=== PATIENT | female | born 1955 | race Caucasian/White ===

== ENCOUNTER 2018-12-13 09:28 | Inpatient (IN) | payer MEDICAID ==
[~2018-12-13] VITALS: Ht 167.6 cm; Wt 45.0 kg
[~2018-12-13 09:28] MED LIST: ACET-2615 PO; APIX5TAB3 PO; BENZ1TAB7 PO; BISA-155 PO; BISA10SU60 RC; CEFD300C3 PO; CLON-527 PO; DESM0.1T24 PO; DESM0.2T29 PO; DOCU-329 PO; FURO40TA4 PO; GABA300C PO; LACT1CAP26 PO; LAMO25TA94 PO; LITH150C8 PO; LORA1TAB PO; MAG355OR18 PO; MAGN400O6 PO; METO25TA6 PO; MIRT7.5T11 PO; MULT-38 PO; NA P133E4 RC; NITR0.4T51 SL; OLAN5TAB26 PO; OLAN5TAB3 PO; OMEP20TA23 PO; POLY17PO10 PO; POTA8TAB3 PO; QUET-1 PO; RISP2TAB97 PO; TRAZ-251 PO
[2018-12-13] MEDS ORDERED: ondansetron/PF 4mg/2ml inj IV ONE (09:40)
[2018-12-13] MEDS ORDERED: albuterol 2.5 mg/0.5ml nebule NEB ONE (09:40)
[2018-12-13] MEDS ORDERED: albuterol 2.5 MG/3 ML nebule NEB ONE (09:45)
[2018-12-13 09:50] LABS: BASOPHILS % (AUTO) 0.1 % (0-1); EOSINOPHILS # (AUTO) 0.2 X10'3 (0-0.9); EOSINOPHILS % (AUTO) 1.7 % (0-6); HEMATOCRIT 33.7 % (35.0-45.0); HEMOGLOBIN 11.3 g/dl (12.0-16.0); LYMPHOCYTES # (AUTO) 0.5 X10'3 (1.1-4.8); LYMPHOCYTES % (AUTO) 3.6 % (21-51); MEAN CORPUSCULAR HEMOGLOBIN 32.7 PG (27.0-31.0); MEAN CORPUSCULAR HGB CONC 33.5 g/dL (33.0-36.5); MEAN CORPUSCULAR VOLUME 97.6 FL (78-98); MEAN PLATELET VOLUME 7.6 FL (7.4-10.4); MONOCYTES # (AUTO) 0.5 X10'3 (0-0.9); MONOCYTES % (AUTO) 3.6 % (2-12); NEUTROPHILS # (AUTO) 12.9 X10'3 (1.8-7.7); PLATELET COUNT 241 X10'3 (140-440); RED BLOOD COUNT 3.46 X10'6 (4.20-5.60); RED CELL DISTRIBUTION WIDTH 13.4 % (11.5-14.5); WHITE BLOOD COUNT 14.2 X10'3 (4.5-11.0)
[2018-12-13 10:00] LABS: ABG BASE EXCESS 4.1 mmol/L (-2.0-3.0); ABG HCO3 30.8 mmol/L (22.0-26.0); ABG OXYGEN SATURATION 99.3 % (95-98); ABG PCO2 (T) 56.7 mmHg (32.0-45.0); ABG PH (T) 7.353 (7.350-7.450); ABG PO2 (T) 328.3 mmHg (83-108); ALLEN'S TEST Positive; FCOHb 1.8 % (0.5-1.5); FMetHb 0.3 % (0.3-1.12); FO2Hb 97.2 % (94-100); MINUTE VOLUME 20 L/min; RESPIRATORY RATE 20 b/min; RESPIRATORY RATE (OBSERVED) 52 b/min; TIDAL VOLUME 597 mL; TOTAL HEMOGLOBIN 11.7 G/dl (12.0-16.0)
[2018-12-13 10:05] LABS: ALANINE AMINOTRANSFERASE 30 U/L (12-78); ALBUMIN 3.4 G/DL (3.4-5.0); ALKALINE PHOSPHATASE 90 IU/L (46-116); ANION GAP 6 (8-16); ASPARTATE AMINO TRANSFERASE 30 U/L (10-37); BILIRUBIN,TOTAL 0.5 MG/DL (0.1-1.0); BLOOD UREA NITROGEN 18 MG/DL (7-18); BUN/CREATININE RATIO 11.7 (6.6-38.0); CHLORIDE 98 MMOL/L (99-107); CREATININE 1.54 MG/DL (0.40-0.90); GLUCOSE 157 MG/DL (70-104); POTASSIUM 3.8 MMOL/L (3.5-5.1); SODIUM 136 MMOL/L (135-145); TOTAL CARBON DIOXIDE 31.6 MMOL/L (24-32); TOTAL PROTEIN 6.9 G/DL (6.4-8.2); eGFR 34 ML/MIN
[2018-12-13] MEDS ORDERED: LORazepam 2 mg/ml vial IV ONE ×2 (10:10→10:50)
--- NOTE | 2018-12-13 10:10 | NUR ---
Spoke with Dr. Odom regarding patient repeatedly wanting to pull at lines and BiPAP mask to remove it. Dr. Odom gave verbal order for 0.5 mg IV ativan x1 dose now.
[2018-12-13 10:13] LABS: MAGNESIUM 1.6 MG/DL (1.5-2.4); PHOSPHORUS 4.1 MG/DL (2.3-4.5)
[2018-12-13] MEDS ORDERED: normal saline 1000ML IV soln IVB ONE ×2 (10:15→12:55)
--- NOTE | 2018-12-13 10:25 | NUR ---
SPOKE WITH DR RAYGOZA REGARDING PT'S BNP AND IV FLUID ORDER. PER MD, GIVE HALF THE BOLUS AND RE-ASSESS PRIOR TO ADMINISTERING SECOND HALF
[2018-12-13 11:06] LABS: ABG HCO3 30.2 mmol/L (22.0-26.0); ABG OXYGEN SATURATION 98.3 % (95-98); ABG PCO2 (T) 60.2 mmHg (32.0-45.0); ABG PH (T) 7.318 (7.350-7.450); ABG PO2 (T) 131.4 mmHg (83-108); ALLEN'S TEST Positive; FCOHb 1.1 % (0.5-1.5); FMetHb 0.3 % (0.3-1.12); FO2Hb 96.9 % (94-100); MINUTE VOLUME 19 L/min; RESPIRATORY RATE 20 b/min; RESPIRATORY RATE (OBSERVED) 31 b/min; TIDAL VOLUME 356 mL; TOTAL HEMOGLOBIN 10.3 G/dl (12.0-16.0)
--- NOTE | 2018-12-13 11:09 | NUR ---
Per MD request, pt trialed off BiPAP and placed Venturi Mask at 50% FiO2
--- NOTE | 2018-12-13 11:31 | NUR ---
Pt requested water, Dr Odom agreed to a couple of ice chips. Pt tolerated well.
[2018-12-13] MEDS ORDERED: BUDE10.2 INH (12:07)
[2018-12-13] MEDS ORDERED: XAL0.005OS OP (12:31)
[2018-12-13] MEDS ORDERED: ESCI5TAB PO (12:31)
--- NOTE | 2018-12-13 12:40 | NUR ---
Discussed recent vitals with EDMD, including BP; verbal for 500mL IV bolus received.
--- NOTE | 2018-12-13 12:51 | NUR ---
Pt incontinent of urine. Linens changed and pt repositioned
--- NOTE | 2018-12-13 12:55 | NUR ---
Venturi decreased to 35% FiO2. O2 94% at this time.
[2018-12-13] MEDS ORDERED: mag hydrox/Alum hydrox/simeth 30ml oral suspension PO PRN (13:20)
[2018-12-13] MEDS ORDERED: acetaminophen 325mg tablet PO PRN (13:20)
[2018-12-13] MEDS ORDERED: magnesium hydroxide 30ml (MOM) UD suspension PO PRN (13:20)
[2018-12-13] MEDS: normal saline 1000ml 1,000 ML IV SCH ×2 (13:42→22:46)
--- NOTE | 2018-12-13 13:49 | NUR ---
received report from MAMTA Poe in ER
[2018-12-13] MEDS: ipratropium/albuterol 3ml nebule NEB SCH ×3 (14:57→23:16)
[2018-12-13 15:00] VITALS: BP 125/74
[2018-12-13] MEDS: cefepime 1GM/NS ADD-VANTAGE 100 ML IV SCH ×2 (16:12→23:43)
[2018-12-13] MEDS ORDERED: nitroGLYCERIN 0.4mg SUBLingual tab SL PRN (16:20)
--- NOTE | 2018-12-13 16:34 | NUR ---
pt unable to answer many questions for NILDA, psych pt that lives at [place]
[2018-12-13] MEDS: polyethylene glycol 3350 17gm powd pack PO SCH (16:59)
[2018-12-13 17:50] LABS: CLARITY,URINE CLEAR (Clear); COLOR,URINE YELLOW (Yellow); GLUCOSE, URINE NEGATIVE (Neg); KETONES,URINE NEGATIVE (Neg); LEUKOCYTE ESTERASE ,URINE NEGATIVE (Neg); NITRITES, URINE NEGATIVE (Neg); OCCULT BLOOD,URINE TRACE-INTACT (Neg); PH,URINE 6.5 (4.8-8.0); PROTEIN,URINE NEGATIVE (Neg); UROBILINOGEN,URINE 0.2 E.U/dL (0.2-1.0)
[2018-12-13 17:55] LABS: UA COLLECTION TYPE VOIDED
[2018-12-13 17:56] LABS: BACTERIA,URINE FEW /HPF (Neg); MUCUS STRANDS NONE SEEN /LPF (Neg); RBC,URINE 0-2 /HPF (0-2); SQUAMOUS EPITHELIAL CELL,UR FEW /LPF (FEW); WBC,URINE NONE SEEN /HPF (0-4)
[2018-12-13 18:00] VITALS: BP 112/61
--- NOTE | 2018-12-13 18:00 | NUR ---
called [facility] and asked them to bring home med desmopressin. Catherine said she will try to bring it here
--- NOTE | 2018-12-13 18:25 | NUR ---
Orientee documentation: I have reviewed and agree with all interventions, assessments performed and documented by MAMTA Hair .
--- NOTE | 2018-12-13 18:46 | NUR ---
Problems reprioritized. Patient report given, questions answered & plan of care reviewed with MAMTA Dixon.
[2018-12-13] MEDS: albuterol 2.5 MG/3 ML nebule NEB SCH (19:00)
[2018-12-13] MEDS: LORazepam 1 MG tablet PO PRN (19:02)
[2018-12-13] MEDS: acetaminophen 325mg tablet PO SCH (20:00)
[2018-12-13] MEDS ORDERED: non-formulary drug (Acetaminophen (Tylenol Extra Strength) 2 TAB) PO SCH (20:00)
[2018-12-13] MEDS: docusate sod 250mg capsule PO SCH (20:00)
[2018-12-13] MEDS ORDERED: non-formulary drug (Budesonide/Formoterol Fumarate (Symbicort 160-4.5 Mcg Inhaler) 1 PUFFS INH SCH (20:00)
[2018-12-13] MEDS: budesonide 0.5mg/2ml UD nebule IH SCH (20:09)
[2018-12-13] MEDS ORDERED: DESMOPRESSIN ACETATE 0.4 MG PO SCH (21:00)
[2018-12-13] MEDS ORDERED: non-formulary drug (Mirtazapine 1 TAB) PO SCH (21:00)
[2018-12-13 22:00] VITALS: BP 126/85
[2018-12-13] MEDS ORDERED: haloperidol lactate 5mg/ml inj IM ONE (22:15)
[2018-12-13] MEDS: mirtazapine 15mg tablet PO SCH (23:15)
[2018-12-13] MEDS: metoprolol tartrate 25mg tablet PO SCH (23:16)
[2018-12-13] MEDS: traZODone 50mg tablet PO SCH (23:18)
[2018-12-13] MEDS: quetiapine 100mg tablet PO SCH (23:20)
[2018-12-13] MEDS: benztropine 1mg tablet PO SCH (23:24)
[2018-12-13] MEDS: lithium carbonate 150mg capsule PO SCH (23:27)
[2018-12-13] MEDS: lamoTRIgine 25mg tablet PO SCH (23:29)
[2018-12-13] MEDS: gabapentin 300mg capsule PO SCH (23:32)
[2018-12-13] MEDS: DESMOPRESSIN 0.2 MG PO SCH (23:33)
[2018-12-14 02:00] VITALS: BP 109/52
[2018-12-14] MEDS: ipratropium/albuterol 3ml nebule NEB SCH ×6 (03:00→22:29)
--- NOTE | 2018-12-14 06:49 | NUR ---
Patient in room PCU 3017m. I have received report from Destiny RN at the bedside and had the opportunity to ask questions and assume patient care. Patient is awake and alert in bed, appears to be in no distress, denies complaints. Vitals on bedside mobile are stable. Sitter is at the bedside. Will continue to monitor at this time.
--- NOTE | 2018-12-14 06:49 | NUR ---
Patient in room PCU 3017. I have received report from MAMTA Dixon and had the opportunity to ask questions and assume patient care.Patient is currently resting in bed, bed locked and low, call light in reach. no acute distress, no needs at this time.
[2018-12-14 07:00] VITALS: BP 102/49
[2018-12-14] MEDS: albuterol 2.5 MG/3 ML nebule NEB SCH ×4 (07:00→19:00)
[2018-12-14] MEDS: cefepime 1GM/NS ADD-VANTAGE 100 ML IV SCH ×2 (07:43→16:15)
[2018-12-14] MEDS: normal saline 1000ml 1,000 ML IV SCH ×2 (07:43→19:16)
[2018-12-14] MEDS: DESMOPRESSIN ACETATE 0.1 MG PO SCH (07:50)
[2018-12-14] MEDS: gabapentin 300mg capsule PO SCH ×2 (07:50→12:26)
[2018-12-14] MEDS: OLANZAPINE 5 MG TABLET PO SCH (07:51)
[2018-12-14] MEDS: benztropine 1mg tablet PO SCH ×2 (07:52→19:38)
[2018-12-14] MEDS: lamoTRIgine 25mg tablet PO SCH ×2 (07:54→19:38)
[2018-12-14] MEDS: CITALOpram 10mg tablet PO SCH (07:54)
[2018-12-14] MEDS: metoprolol tartrate 25mg tablet PO SCH ×2 (07:56→19:39)
[2018-12-14] MEDS: pantoprazole 40mg Tablet.DR PO SCH (07:56)
[2018-12-14] MEDS: docusate sod 250mg capsule PO SCH ×2 (07:56→19:38)
[2018-12-14] MEDS: acetaminophen 325mg tablet PO SCH ×2 (07:58→19:50)
[2018-12-14] MEDS: potassium chloride 8mEq ER tablet PO SCH (07:58)
[2018-12-14] MEDS: multivitamins, therapeutics tablet PO SCH (07:58)
[2018-12-14] MEDS ORDERED: DESMOPRESSIN ACETATE PO SCH (08:00)
[2018-12-14] MEDS ORDERED: non-formulary drug (Omeprazole Magnesium (Prilosec Otc) 1 TAB) PO SCH (08:00)
[2018-12-14] MEDS ORDERED: non-formulary drug (Multivitamin (Daily Multiple Vitamin) 1 TAB) PO SCH (08:00)
[2018-12-14] MEDS: furosemide 40mg tablet PO SCH (08:00)
[2018-12-14] MEDS ORDERED: ESCITALOPRAM OXALATE PO SCH (08:00)
[2018-12-14] MEDS: lithium carbonate 150mg capsule PO SCH ×2 (08:05→19:38)
[2018-12-14] MEDS: budesonide 0.5mg/2ml UD nebule IH SCH ×2 (08:12→19:11)
--- NOTE | 2018-12-14 08:20 | NUR ---
Assessment completed on patient, patient is aware of current facility, stated that the year was 2018, and the the president is "Juanito". Patient declines all lab draws but was compliant with medication administration. Patient moved to room 3028B, belongings in [place]. Sitter continues to be at the bedside. Will continue to monitor at this time.
--- NOTE | 2018-12-14 08:54 | NUR ---
Dr. Zabala at bedside. Orders received for PT eval, oxygen decrease to 2L & soy milk.
--- NOTE | 2018-12-14 09:49 | NUR ---
Spoke with Dr Zabala who is aware that patient is refusing lab draws this am
--- NOTE | 2018-12-14 11:07 | NUR ---
PAGER ID: [phone] MESSAGE: Janice OLEARY Ext [phone] Torito has Tylenol ordered for fever and scheduled BID, but nothing for pain, may we order Tylenol PRN for pain? Thank you.
[2018-12-14] MEDS: LORazepam 1 MG tablet PO PRN ×2 (11:09→17:46)
[2018-12-14 11:37] VITALS: BP 100/64
--- NOTE | 2018-12-14 11:50 | NUR ---
Leandro trigger: Leandro 12; no edema and skin intact. Addendum: 12/14/18 at [address] Amended: Links added.
[2018-12-14 15:59] VITALS: BP 133/57
--- NOTE | 2018-12-14 16:34 | NUR ---
PAGER ID: [phone] MESSAGE: Janice OLEARY Ext [phone] SAI Ugarte had 4 beat fun of V-Tach. Thank you
[2018-12-14 18:00] VITALS: BP 115/52
--- NOTE | 2018-12-14 18:20 | NUR ---
Problems reprioritized. Patient report given, questions answered & plan of care reviewed with Lexi OLEARY. Patient stable at transfer if care.
--- NOTE | 2018-12-14 18:26 | NUR ---
Patient in room PCU 3028. I have received report from Lamont OLEARY and had the opportunity to ask questions and assume patient care.
--- NOTE | 2018-12-14 18:27 | NUR ---
Charting completed by Rossi OLEARY has been reviewed. Constructive criticism given as needed.
[2018-12-14] MEDS: gabapentin 400mg capsule PO SCH (19:39)
[2018-12-14] MEDS: lactobacillus rhamnosus 10,000 MMU CELLS/CAPSULE PO SCH (19:39)
[2018-12-14] MEDS: DESMOPRESSIN 0.2 MG PO SCH (20:22)
[2018-12-14] MEDS: traZODone 50mg tablet PO SCH (20:22)
[2018-12-14] MEDS: quetiapine 100mg tablet PO SCH (20:23)
[2018-12-14] MEDS: mirtazapine 15mg tablet PO SCH (20:24)
[2018-12-14 23:00] VITALS: BP_SYST 116; BP_SYST 16; BP_DIAS 46
[2018-12-15] VITALS (7 sets, daily range): BP systolic 95–145; BP diastolic 43–60
[2018-12-15] MEDS: cefepime 1GM/NS ADD-VANTAGE 100 ML IV SCH ×4 (01:32→23:56)
[2018-12-15] MEDS: ipratropium/albuterol 3ml nebule NEB SCH ×5 (03:00→19:35)
[2018-12-15] MEDS: LORazepam 1 MG tablet PO PRN ×3 (04:48→17:10)
[2018-12-15] MEDS: normal saline 1000ml 1,000 ML IV SCH ×2 (05:16→15:22)
[2018-12-15 05:17] LABS: BASOPHILS % (AUTO) 0.3 % (0-1); EOSINOPHILS # (AUTO) 0.3 X10'3 (0-0.9); EOSINOPHILS % (AUTO) 3.4 % (0-6); HEMATOCRIT 29.5 % (35.0-45.0); HEMOGLOBIN 9.9 g/dl (12.0-16.0); LYMPHOCYTES # (AUTO) 0.9 X10'3 (1.1-4.8); LYMPHOCYTES % (AUTO) 11.1 % (21-51); MEAN CORPUSCULAR HEMOGLOBIN 33.7 PG (27.0-31.0); MEAN CORPUSCULAR HGB CONC 33.4 g/dL (33.0-36.5); MEAN CORPUSCULAR VOLUME 100.8 FL (78-98); MEAN PLATELET VOLUME 7.7 FL (7.4-10.4); MONOCYTES # (AUTO) 0.5 X10'3 (0-0.9); MONOCYTES % (AUTO) 6.4 % (2-12); NEUTROPHILS # (AUTO) 6.5 X10'3 (1.8-7.7); NEUTROPHILS % (AUTO) 78.8 % (42-75); PLATELET COUNT 180 X10'3 (140-440); RED BLOOD COUNT 2.93 X10'6 (4.20-5.60); RED CELL DISTRIBUTION WIDTH 13.7 % (11.5-14.5); WHITE BLOOD COUNT 8.2 X10'3 (4.5-11.0)
[2018-12-15 05:36] LABS: ALBUMIN 2.8 G/DL (3.4-5.0); ANION GAP 5 (8-16); BLOOD UREA NITROGEN 11 MG/DL (7-18); BUN/CREATININE RATIO 8.9 (6.6-38.0); CALCIUM 9.4 MG/DL (8.5-10.1); CHLORIDE 110 MMOL/L (99-107); CREATININE 1.23 MG/DL (0.40-0.90); GLUCOSE 79 MG/DL (70-104); POTASSIUM 4.1 MMOL/L (3.5-5.1); SODIUM 143 MMOL/L (135-145); TOTAL CARBON DIOXIDE 28.3 MMOL/L (24-32); eGFR 44 ML/MIN
--- NOTE | 2018-12-15 06:28 | NUR ---
Problems reprioritized. Patient report given, questions answered & plan of care reviewed with . Rossi OLEARY
[2018-12-15] MEDS: budesonide 0.5mg/2ml UD nebule IH SCH ×2 (07:03→19:35)
[2018-12-15] MEDS: albuterol 2.5 MG/3 ML nebule NEB SCH ×3 (07:03→19:35)
--- NOTE | 2018-12-15 07:21 | NUR ---
Patient in room PCU 3028. I have received report from MAMTA Roy and had the opportunity to ask questions and assume patient care. Patient is currently resting in bed, bed locked and low, call light in reach. No acute distress, no needs at this time.
[2018-12-15] MEDS: metoprolol tartrate 25mg tablet PO SCH ×2 (08:00→20:10)
[2018-12-15] MEDS: potassium chloride 8mEq ER tablet PO SCH (08:30)
[2018-12-15] MEDS: CITALOpram 10mg tablet PO SCH (08:31)
[2018-12-15] MEDS: benztropine 1mg tablet PO SCH ×2 (08:31→20:09)
[2018-12-15] MEDS: lamoTRIgine 25mg tablet PO SCH ×2 (08:32→20:09)
[2018-12-15] MEDS: multivitamins, therapeutics tablet PO SCH (08:32)
[2018-12-15] MEDS: OLANZAPINE 5 MG TABLET PO SCH (08:32)
[2018-12-15] MEDS: lactobacillus rhamnosus 10,000 MMU CELLS/CAPSULE PO SCH ×2 (08:32→20:09)
[2018-12-15] MEDS: lithium carbonate 150mg capsule PO SCH ×2 (08:32→20:10)
[2018-12-15] MEDS: pantoprazole 40mg Tablet.DR PO SCH (08:32)
[2018-12-15] MEDS: furosemide 40mg tablet PO SCH (08:32)
[2018-12-15] MEDS: DESMOPRESSIN ACETATE 0.1 MG PO SCH (08:33)
[2018-12-15] MEDS: docusate sod 250mg capsule PO SCH ×2 (08:33→20:10)
[2018-12-15] MEDS: gabapentin 400mg capsule PO SCH ×2 (08:33→20:09)
[2018-12-15] MEDS: acetaminophen 325mg tablet PO SCH ×2 (08:33→20:10)
--- NOTE | 2018-12-15 10:27 | NUR ---
Conservator Jerilyn called, Latrice answered and stated he was taking calls for her. okay to cut off rings and he will have sister call patient per patients request
--- NOTE | 2018-12-15 11:14 | NUR ---
Pt simons rings were tight on her fingers, two simons rings removed and placed in a labeled bag in top drawer next to patient
[2018-12-15] MEDS: polyethylene glycol 3350 17gm powd pack PO SCH (17:07)
--- NOTE | 2018-12-15 18:39 | NUR ---
Patient in room PCU 3028. I have received report from Regina RN and Rossi RN and had the opportunity to ask questions and assume patient care.
[2018-12-15] MEDS: mirtazapine 15mg tablet PO SCH (20:09)
[2018-12-15] MEDS: quetiapine 100mg tablet PO SCH (20:10)
[2018-12-15] MEDS: traZODone 50mg tablet PO SCH (20:10)
[2018-12-15] MEDS: DESMOPRESSIN 0.2 MG PO SCH (20:11)
[2018-12-16] MEDS: ipratropium/albuterol 3ml nebule NEB SCH ×3 (00:10→06:44)
[2018-12-16] MEDS: normal saline 1000ml 1,000 ML IV SCH ×3 (00:51→23:30)
[2018-12-16 02:00] VITALS: BP 97/50
[2018-12-16] MEDS: LORazepam 1 MG tablet PO PRN ×3 (05:47→19:32)
[2018-12-16 06:00] VITALS: BP 90/77
--- NOTE | 2018-12-16 06:03 | NUR ---
Problems reprioritized. Patient report given, questions answered & plan of care reviewed with MAMTA Tapia.
[2018-12-16] MEDS: budesonide 0.5mg/2ml UD nebule IH SCH ×2 (06:41→20:32)
[2018-12-16] MEDS: albuterol 2.5 MG/3 ML nebule NEB SCH ×4 (06:41→20:32)
[2018-12-16 06:49] LABS: BASOPHILS % (AUTO) 0.4 % (0-1); EOSINOPHILS # (AUTO) 0.3 X10'3 (0-0.9); EOSINOPHILS % (AUTO) 3.4 % (0-6); HEMATOCRIT 28.6 % (35.0-45.0); HEMOGLOBIN 9.7 g/dl (12.0-16.0); LYMPHOCYTES # (AUTO) 0.8 X10'3 (1.1-4.8); LYMPHOCYTES % (AUTO) 10.2 % (21-51); MEAN CORPUSCULAR HEMOGLOBIN 33.9 PG (27.0-31.0); MEAN CORPUSCULAR HGB CONC 33.9 g/dL (33.0-36.5); MEAN PLATELET VOLUME 7.9 FL (7.4-10.4); MONOCYTES # (AUTO) 0.5 X10'3 (0-0.9); MONOCYTES % (AUTO) 6.3 % (2-12); NEUTROPHILS # (AUTO) 6.3 X10'3 (1.8-7.7); NEUTROPHILS % (AUTO) 79.7 % (42-75); PLATELET COUNT 179 X10'3 (140-440); RED BLOOD COUNT 2.86 X10'6 (4.20-5.60); RED CELL DISTRIBUTION WIDTH 13.6 % (11.5-14.5); WHITE BLOOD COUNT 7.9 X10'3 (4.5-11.0)
[2018-12-16 07:05] LABS: ALBUMIN 2.8 G/DL (3.4-5.0); ANION GAP 6 (8-16); BLOOD UREA NITROGEN 13 MG/DL (7-18); BUN/CREATININE RATIO 10.2 (6.6-38.0); CALCIUM 9.4 MG/DL (8.5-10.1); CHLORIDE 107 MMOL/L (99-107); CREATININE 1.27 MG/DL (0.40-0.90); GLUCOSE 95 MG/DL (70-104); POTASSIUM 3.9 MMOL/L (3.5-5.1); SODIUM 142 MMOL/L (135-145); TOTAL CARBON DIOXIDE 29.1 MMOL/L (24-32); eGFR 43 ML/MIN
[2018-12-16] MEDS: OLANZAPINE 5 MG TABLET PO SCH (07:52)
[2018-12-16] MEDS: lactobacillus rhamnosus 10,000 MMU CELLS/CAPSULE PO SCH ×2 (07:52→21:04)
[2018-12-16] MEDS: cefepime 1GM/NS ADD-VANTAGE 100 ML IV SCH ×3 (07:52→23:29)
[2018-12-16] MEDS: benztropine 1mg tablet PO SCH ×2 (07:52→21:08)
[2018-12-16] MEDS: docusate sod 250mg capsule PO SCH ×2 (07:52→21:08)
[2018-12-16] MEDS: gabapentin 400mg capsule PO SCH ×2 (07:52→21:08)
[2018-12-16] MEDS: CITALOpram 10mg tablet PO SCH (07:53)
[2018-12-16] MEDS: lamoTRIgine 25mg tablet PO SCH ×2 (07:53→21:07)
[2018-12-16] MEDS: furosemide 40mg tablet PO SCH (07:53)
[2018-12-16] MEDS: potassium chloride 8mEq ER tablet PO SCH (07:53)
[2018-12-16] MEDS: multivitamins, therapeutics tablet PO SCH (07:53)
[2018-12-16] MEDS: pantoprazole 40mg Tablet.DR PO SCH (07:53)
[2018-12-16] MEDS: acetaminophen 325mg tablet PO SCH ×2 (07:54→21:07)
[2018-12-16] MEDS: metoprolol tartrate 25mg tablet PO SCH ×2 (08:00→21:08)
[2018-12-16] MEDS: lithium carbonate 150mg capsule PO SCH ×2 (08:03→21:07)
[2018-12-16 11:00] VITALS: BP 126/58
[2018-12-16] MEDS: DESMOPRESSIN ACETATE 0.1 MG PO SCH (11:51)
--- NOTE | 2018-12-16 14:00 | NUR ---
PAGER ID: [phone] MESSAGE: [facility] 3028B [phone]
--- NOTE | 2018-12-16 14:16 | NUR ---
O2 Sat at rest on room air: 76% If below 89%: Recovery O2 Sat at rest: 93% on 2LPM: via nasal cannula No further documentation is necessary.
[2018-12-16 15:00] VITALS: BP 112/48
[2018-12-16 18:00] VITALS: BP 130/54
--- NOTE | 2018-12-16 18:31 | NUR ---
Problems reprioritized. Patient report given, questions answered & plan of care reviewed with Ale Tanner RN, pt greeted at bedside.
--- NOTE | 2018-12-16 18:32 | NUR ---
Patient in room PCU 3028. I have received report from Regina and had the opportunity to ask questions and assume patient care.
[2018-12-16] MEDS: mirtazapine 15mg tablet PO SCH (21:04)
[2018-12-16] MEDS: traZODone 50mg tablet PO SCH (21:05)
[2018-12-16] MEDS: DESMOPRESSIN 0.2 MG PO SCH (21:08)
[2018-12-16] MEDS: quetiapine 100mg tablet PO SCH (21:08)
[2018-12-16 22:00] VITALS: BP 120/56
[2018-12-17] VITALS (11 sets, daily range): BP systolic 98–158; BP diastolic 48–95
--- NOTE | 2018-12-17 06:12 | NUR ---
Problems reprioritized. Patient report given, questions answered & plan of care reviewed with Vaughn.
--- NOTE | 2018-12-17 06:20 | NUR ---
Patient in room PCU 3028. I have received report from Joby Meade and had the opportunity to ask questions and assume patient care.
[2018-12-17] MEDS: normal saline 1000ml 1,000 ML IV SCH (07:16)
[2018-12-17] MEDS: budesonide 0.5mg/2ml UD nebule IH SCH ×2 (07:49→19:34)
[2018-12-17] MEDS: albuterol 2.5 MG/3 ML nebule NEB SCH ×4 (07:49→19:34)
[2018-12-17] MEDS: cefepime 1GM/NS ADD-VANTAGE 100 ML IV SCH ×3 (08:32→23:25)
[2018-12-17] MEDS: DESMOPRESSIN ACETATE 0.1 MG PO SCH (08:33)
[2018-12-17] MEDS: docusate sod 250mg capsule PO SCH ×2 (08:34→20:15)
[2018-12-17] MEDS: acetaminophen 325mg tablet PO SCH ×2 (08:34→20:14)
[2018-12-17] MEDS: lactobacillus rhamnosus 10,000 MMU CELLS/CAPSULE PO SCH ×2 (08:35→20:15)
[2018-12-17] MEDS: gabapentin 400mg capsule PO SCH ×2 (08:35→20:13)
[2018-12-17] MEDS: CITALOpram 10mg tablet PO SCH (08:35)
[2018-12-17] MEDS: potassium chloride 8mEq ER tablet PO SCH (08:35)
[2018-12-17] MEDS: OLANZAPINE 5 MG TABLET PO SCH (08:35)
[2018-12-17] MEDS: lamoTRIgine 25mg tablet PO SCH ×2 (08:35→20:14)
[2018-12-17] MEDS: multivitamins, therapeutics tablet PO SCH (08:35)
[2018-12-17] MEDS: pantoprazole 40mg Tablet.DR PO SCH (08:36)
[2018-12-17] MEDS: benztropine 1mg tablet PO SCH ×2 (08:36→20:13)
[2018-12-17] MEDS: lithium carbonate 150mg capsule PO SCH ×2 (08:36→20:15)
[2018-12-17] MEDS: furosemide 40mg tablet PO SCH (08:36)
[2018-12-17] MEDS: metoprolol tartrate 25mg tablet PO SCH ×2 (08:37→20:17)
[2018-12-17 09:14] LABS: BASOPHILS % (AUTO) 0.2 % (0-1); EOSINOPHILS # (AUTO) 0.2 X10'3 (0-0.9); EOSINOPHILS % (AUTO) 2.4 % (0-6); HEMATOCRIT 30.8 % (35.0-45.0); HEMOGLOBIN 10.4 g/dl (12.0-16.0); LYMPHOCYTES # (AUTO) 0.7 X10'3 (1.1-4.8); LYMPHOCYTES % (AUTO) 7.8 % (21-51); MEAN CORPUSCULAR HEMOGLOBIN 33.4 PG (27.0-31.0); MEAN CORPUSCULAR HGB CONC 33.7 g/dL (33.0-36.5); MEAN CORPUSCULAR VOLUME 99.2 FL (78-98); MEAN PLATELET VOLUME 7.9 FL (7.4-10.4); MONOCYTES # (AUTO) 0.6 X10'3 (0-0.9); MONOCYTES % (AUTO) 6.7 % (2-12); NEUTROPHILS # (AUTO) 7.3 X10'3 (1.8-7.7); NEUTROPHILS % (AUTO) 82.9 % (42-75); PLATELET COUNT 187 X10'3 (140-440); RED CELL DISTRIBUTION WIDTH 13.7 % (11.5-14.5); WHITE BLOOD COUNT 8.7 X10'3 (4.5-11.0)
[2018-12-17 09:26] LABS: ALBUMIN 2.9 G/DL (3.4-5.0); ANION GAP 4 (8-16); BLOOD UREA NITROGEN 16 MG/DL (7-18); BUN/CREATININE RATIO 12.6 (6.6-38.0); CALCIUM 10.1 MG/DL (8.5-10.1); CHLORIDE 108 MMOL/L (99-107); CREATININE 1.27 MG/DL (0.40-0.90); GLUCOSE 105 MG/DL (70-104); POTASSIUM 3.9 MMOL/L (3.5-5.1); SODIUM 141 MMOL/L (135-145); TOTAL CARBON DIOXIDE 28.8 MMOL/L (24-32); eGFR 43 ML/MIN
[2018-12-17] MEDS ORDERED: AMOX-422 PO (10:19)
--- NOTE | 2018-12-17 14:40 | NUR ---
PAGER ID: [phone] MESSAGE: RE: Isidro Ugarte. Room: 3028B. Pt was evaluated by [facility] and they declined to receive her back today, stating she needs to be able to transfer with PT and not be on continuous O2. -[facility] #[phone] Dr. Zabala paged concerning Pt not being DCd today.
--- NOTE | 2018-12-17 16:09 | NUR ---
PAGER ID: [phone] MESSAGE: Re: Isidro Ugarte. Room: [facility]. Pt asked about her Latanoprost (Xalatan) eye drops for her glaucoma. Eye drops have been completed in the med rec Dr. Zabala paged concerning Pts eye drops for her glaucoma
[2018-12-17] MEDS: polyethylene glycol 3350 17gm powd pack PO SCH (16:42)
--- NOTE | 2018-12-17 18:00 | NUR ---
Problems reprioritized. Patient report given, questions answered & plan of care reviewed with Joby Meade.
--- NOTE | 2018-12-17 18:34 | NUR ---
Patient in room PCU 3028. I have received report from Vaughn and had the opportunity to ask questions and assume patient care.
[2018-12-17] MEDS: DESMOPRESSIN 0.2 MG PO SCH (20:13)
[2018-12-17] MEDS: traZODone 50mg tablet PO SCH (20:14)
[2018-12-17] MEDS: quetiapine 100mg tablet PO SCH (20:15)
[2018-12-17] MEDS: mirtazapine 15mg tablet PO SCH (20:15)
[2018-12-18 04:36] VITALS: BP 107/52
[2018-12-18 06:00] VITALS: BP 114/68
--- NOTE | 2018-12-18 06:07 | NUR ---
Problems reprioritized. Patient report given, questions answered & plan of care reviewed with Mikey.
--- NOTE | 2018-12-18 06:10 | NUR ---
Patient in room PCU 3028. I have received report from Joby OLEARY and had the opportunity to ask questions and assume patient care.
[2018-12-18 06:27] LABS: BASOPHILS % (AUTO) 0.4 % (0-1); EOSINOPHILS # (AUTO) 0.3 X10'3 (0-0.9); EOSINOPHILS % (AUTO) 4.4 % (0-6); HEMATOCRIT 31.1 % (35.0-45.0); HEMOGLOBIN 10.5 g/dl (12.0-16.0); LYMPHOCYTES # (AUTO) 0.7 X10'3 (1.1-4.8); LYMPHOCYTES % (AUTO) 9.1 % (21-51); MEAN CORPUSCULAR HEMOGLOBIN 33.6 PG (27.0-31.0); MEAN CORPUSCULAR HGB CONC 33.8 g/dL (33.0-36.5); MEAN CORPUSCULAR VOLUME 99.4 FL (78-98); MEAN PLATELET VOLUME 8.6 FL (7.4-10.4); MONOCYTES # (AUTO) 0.7 X10'3 (0-0.9); MONOCYTES % (AUTO) 8.8 % (2-12); NEUTROPHILS # (AUTO) 6.1 X10'3 (1.8-7.7); NEUTROPHILS % (AUTO) 77.3 % (42-75); PLATELET COUNT 210 X10'3 (140-440); RED BLOOD COUNT 3.13 X10'6 (4.20-5.60); RED CELL DISTRIBUTION WIDTH 13.5 % (11.5-14.5); WHITE BLOOD COUNT 7.8 X10'3 (4.5-11.0)
[2018-12-18 06:38] LABS: ALBUMIN 2.9 G/DL (3.4-5.0); ANION GAP 2 (8-16); BLOOD UREA NITROGEN 18 MG/DL (7-18); BUN/CREATININE RATIO 14.4 (6.6-38.0); CALCIUM 10.1 MG/DL (8.5-10.1); CHLORIDE 100 MMOL/L (99-107); CREATININE 1.25 MG/DL (0.40-0.90); GLUCOSE 92 MG/DL (70-104); SODIUM 135 MMOL/L (135-145); TOTAL CARBON DIOXIDE 32.7 MMOL/L (24-32); eGFR 43 ML/MIN
[2018-12-18] MEDS: cefepime 1GM/NS ADD-VANTAGE 100 ML IV SCH (07:42)
[2018-12-18] MEDS: DESMOPRESSIN ACETATE 0.1 MG PO SCH (07:43)
[2018-12-18] MEDS: lithium carbonate 150mg capsule PO SCH ×2 (07:45→21:15)
[2018-12-18] MEDS: potassium chloride 8mEq ER tablet PO SCH (07:45)
[2018-12-18] MEDS: docusate sod 250mg capsule PO SCH ×2 (07:45→21:16)
[2018-12-18] MEDS: benztropine 1mg tablet PO SCH ×2 (07:45→21:17)
[2018-12-18] MEDS: metoprolol tartrate 25mg tablet PO SCH ×2 (07:46→21:18)
[2018-12-18] MEDS: acetaminophen 325mg tablet PO SCH ×2 (07:47→21:16)
[2018-12-18] MEDS: lactobacillus rhamnosus 10,000 MMU CELLS/CAPSULE PO SCH ×2 (07:47→21:16)
[2018-12-18] MEDS: lamoTRIgine 25mg tablet PO SCH ×2 (07:47→21:17)
[2018-12-18] MEDS: OLANZAPINE 5 MG TABLET PO SCH (07:47)
[2018-12-18] MEDS: furosemide 40mg tablet PO SCH (07:47)
[2018-12-18] MEDS: pantoprazole 40mg Tablet.DR PO SCH (07:48)
[2018-12-18] MEDS: CITALOpram 10mg tablet PO SCH (07:48)
[2018-12-18] MEDS: multivitamins, therapeutics tablet PO SCH (07:48)
[2018-12-18] MEDS: gabapentin 400mg capsule PO SCH ×2 (07:48→21:17)
[2018-12-18] MEDS: budesonide 0.5mg/2ml UD nebule IH SCH ×2 (08:19→19:52)
[2018-12-18] MEDS: albuterol 2.5 MG/3 ML nebule NEB SCH ×4 (08:19→19:52)
--- NOTE | 2018-12-18 10:54 | NUR ---
ADMIT DATE: 12/13/2018 Admitted for SOB, 63y/o female from [facility]. History of congestive heart failure, hypertension, COPD, history of pulmonary embolism, chronic kidney disease, osteoporosis, bipolar disorder. Pt softspoken and quiet upon visitation, seemed slightly confused. Examined pt pressure points for breakdown. Heels were in good condition but had some blanchable redness. Sacrum had a stage 2 pressure ulcer with surrounding maceration. Cleansed Wound with NS and gauze, applied barrier spray, Triad Hydrophyllic paste, then Optifoam covering. No other areas of concern noted. Pt had psoriasis plaques extensively. [facility] RECCOMENDATIONS: SACRAL WOUND: Cleanse area with NS, dry, apply barrier spray and allow to dry. Then apply Triad Hydrophyllic dressing in light layer over wound and melanie-wound, Cover with Optifoam. 1. Daily bathing with no rinse skin cleanser. 2. Cream/Lotion to be applied to skin after bathing. 3. Melanie care Q shift and prn soiling followed by with Barrier Cream. 4. Turn patient Q 1-2 hrs and reposition with pillows. 5. Float heels to offload pressure. Addendum: 12/18/18 at 1056 by Helga Davidson RN Amended: Links added.
[2018-12-18 11:00] VITALS: BP 152/66
--- NOTE | 2018-12-18 11:51 | NUR ---
Initial: Pt admit with acute resp fail with hypoxemia and possible aspiration. Pt recently admitted and given BSS on 12/11/18 with AUTOMOTIVE SALES MANAGER recs pureed food with thin liquids d/t difficulty chewing regular foods r/t no upper teeth. Pt currently on a lactose free pureed diet with documented average 25% PO intake not meeting nutrient needs. Pt with increased protein needs r/t stage II sacrum PU with surrounding maceration per WOC. Unable to provide protein smoothies/shakes with Myke d/t pt with lactose free diet. Recommend Ensure Enlive TID to provide additional protein and kcal with low PO intake of meals, MD and dietary notified. High protein education not appropriate at this time as pt is refusing teachings and confused per notes in teaching record. Pt admit on 12/13 with documented LBM 12/11, pt with routine Colace and Miralax with MoM PRN not yet given. Pt is waiting to be transferred back to [facility] per MD notes. Will continue to follow. Recommendations: 1) Continue lactose free pureed diet 2) Ensure Enlive TID 3) Routine bowel care; monitor need for additional 4) Wt per rx Addendum: 12/18/18 at [address] Amended: Links added.
[2018-12-18] MEDS ORDERED: levoFLOXACIN 500mg tablet PO ONE (12:30)
[2018-12-18] MEDS: ondansetron/PF 4mg/2ml inj IV PRN ×2 (14:57→21:31)
[2018-12-18 15:00] VITALS: BP 136/71
--- NOTE | 2018-12-18 15:00 | NUR ---
Pt has remained on room air since 1344 and has sated in low to mid 90s.
[2018-12-18 18:00] VITALS: BP 148/64
[2018-12-18] MEDS: lactose-reduced food (Ensure Enlive) - 237ml bottle PO SCH (18:00)
--- NOTE | 2018-12-18 18:25 | NUR ---
Problems reprioritized. Patient report given, questions answered & plan of care reviewed with Annita OLEARY.
--- NOTE | 2018-12-18 18:36 | NUR ---
Patient in room PCU 3028. I have received report from MAMTA Mendes and had the opportunity to ask questions and assume patient care.
[2018-12-18] MEDS: polyethylene glycol 3350 17gm powd pack PO SCH (21:13)
[2018-12-18] MEDS: quetiapine 100mg tablet PO SCH (21:15)
[2018-12-18] MEDS: traZODone 50mg tablet PO SCH (21:15)
[2018-12-18] MEDS: mirtazapine 15mg tablet PO SCH (21:18)
[2018-12-18] MEDS: DESMOPRESSIN 0.2 MG PO SCH (21:19)
[2018-12-18 22:00] VITALS: BP 143/66
[2018-12-19 02:00] VITALS: BP 108/64
[2018-12-19] MEDS ORDERED: bisacodyl 10mg suppository rectal RC PRN (05:30)
[2018-12-19 06:00] VITALS: BP 144/63
--- NOTE | 2018-12-19 06:08 | NUR ---
Problems reprioritized. Patient report given, questions answered & plan of care reviewed with MAMTA Mendes.
--- NOTE | 2018-12-19 06:25 | NUR ---
Patient in room PCU 3028. I have received report from Annita OLEARY and had the opportunity to ask questions and assume patient care.
[2018-12-19] MEDS: budesonide 0.5mg/2ml UD nebule IH SCH ×2 (07:36→20:00)
[2018-12-19] MEDS: albuterol 2.5 MG/3 ML nebule NEB SCH ×4 (07:36→20:00)
[2018-12-19] MEDS: acetaminophen 325mg tablet PO SCH ×2 (08:26→20:14)
[2018-12-19] MEDS: lamoTRIgine 25mg tablet PO SCH ×2 (08:26→20:15)
[2018-12-19] MEDS: docusate sod 250mg capsule PO SCH ×2 (08:26→20:15)
[2018-12-19] MEDS: benztropine 1mg tablet PO SCH ×2 (08:26→20:15)
[2018-12-19] MEDS: DESMOPRESSIN ACETATE 0.1 MG PO SCH (08:26)
[2018-12-19] MEDS: gabapentin 400mg capsule PO SCH ×2 (08:26→20:14)
[2018-12-19] MEDS: lactobacillus rhamnosus 10,000 MMU CELLS/CAPSULE PO SCH ×2 (08:26→20:15)
[2018-12-19] MEDS: OLANZAPINE 5 MG TABLET PO SCH (08:26)
[2018-12-19] MEDS: CITALOpram 10mg tablet PO SCH (08:27)
[2018-12-19] MEDS: lithium carbonate 150mg capsule PO SCH ×2 (08:27→20:14)
[2018-12-19] MEDS: multivitamins, therapeutics tablet PO SCH (08:27)
[2018-12-19] MEDS: pantoprazole 40mg Tablet.DR PO SCH (08:27)
[2018-12-19] MEDS: metoprolol tartrate 25mg tablet PO SCH ×2 (08:27→20:14)
[2018-12-19] MEDS: potassium chloride 8mEq ER tablet PO SCH (08:27)
[2018-12-19] MEDS: furosemide 40mg tablet PO SCH (08:27)
[2018-12-19] MEDS: lactose-reduced food (Ensure Enlive) - 237ml bottle PO SCH ×3 (08:31→18:45)
[2018-12-19 10:15] LABS: ANION GAP 5 (8-16); BASOPHILS % (AUTO) 0.2 % (0-1); BLOOD UREA NITROGEN 15 MG/DL (7-18); BUN/CREATININE RATIO 12.1 (6.6-38.0); CALCIUM 9.7 MG/DL (8.5-10.1); CHLORIDE 87 MMOL/L (99-107); CREATININE 1.24 MG/DL (0.40-0.90); EOSINOPHILS # (AUTO) 0.2 X10'3 (0-0.9); EOSINOPHILS % (AUTO) 2.6 % (0-6); GLUCOSE 121 MG/DL (70-104); HEMATOCRIT 32.2 % (35.0-45.0); HEMOGLOBIN 11.1 g/dl (12.0-16.0); LYMPHOCYTES # (AUTO) 0.6 X10'3 (1.1-4.8); LYMPHOCYTES % (AUTO) 6.4 % (21-51); MEAN CORPUSCULAR HEMOGLOBIN 33.6 PG (27.0-31.0); MEAN CORPUSCULAR HGB CONC 34.6 g/dL (33.0-36.5); MEAN CORPUSCULAR VOLUME 97.2 FL (78-98); MEAN PLATELET VOLUME 8.4 FL (7.4-10.4); MONOCYTES # (AUTO) 0.6 X10'3 (0-0.9); MONOCYTES % (AUTO) 7.2 % (2-12); NEUTROPHILS # (AUTO) 7.5 X10'3 (1.8-7.7); NEUTROPHILS % (AUTO) 83.6 % (42-75); PLATELET COUNT 239 X10'3 (140-440); POTASSIUM 3.8 MMOL/L (3.5-5.1); RED BLOOD COUNT 3.32 X10'6 (4.20-5.60); RED CELL DISTRIBUTION WIDTH 13.3 % (11.5-14.5); TOTAL CARBON DIOXIDE 31.5 MMOL/L (24-32); eGFR 44 ML/MIN
[2018-12-19 10:22] LABS: SODIUM 123 MMOL/L (135-145)
[2018-12-19 11:00] VITALS: BP 127/60
[2018-12-19] MEDS ORDERED: levoFLOXACIN 500mg tablet PO SCH (11:00)
--- NOTE | 2018-12-19 11:02 | NUR ---
PAGER ID: [phone] MESSAGE: RE: Isidro Ugarte, Room: [facility]. Pts Sodium:123. -[facility][1] #[id number] Dr. Zabala paged concerning Pts low sodium level
--- NOTE | 2018-12-19 13:18 | NUR ---
PAGER ID: [phone] MESSAGE: RE: Isidro Ugarte, room: [facility]. Pts sodium is 123 from 0930 BMP lab draw -[facility] #[phone] Dr. Zabala paged concerning Pts Sodium level. 123
[2018-12-19] MEDS ORDERED: normal saline 1000ml 1,000 ML IV SCH (13:50)
[2018-12-19 15:00] VITALS: BP 127/58
[2018-12-19 18:00] VITALS: BP 114/63
--- NOTE | 2018-12-19 18:33 | NUR ---
Problems reprioritized. Patient report given, questions answered & plan of care reviewed with Mikey OLEARY
--- NOTE | 2018-12-19 18:49 | NUR ---
Patient in room PCU 3028. I have received report from MAMTA Mendes and had the opportunity to ask questions and assume patient care.
[2018-12-19] MEDS: ondansetron/PF 4mg/2ml inj IV PRN (19:02)
[2018-12-19] MEDS: mirtazapine 15mg tablet PO SCH (20:13)
[2018-12-19] MEDS: DESMOPRESSIN 0.2 MG PO SCH (20:13)
[2018-12-19] MEDS: quetiapine 100mg tablet PO SCH (20:14)
[2018-12-19] MEDS: traZODone 50mg tablet PO SCH (20:14)
[2018-12-19 22:00] VITALS: BP 98/44
[2018-12-20] VITALS (7 sets, daily range): BP systolic 82–133; BP diastolic 35–65
--- NOTE | 2018-12-20 06:17 | NUR ---
Problems reprioritized. Patient report given, questions answered & plan of care reviewed with MAMTA Tapia.
--- NOTE | 2018-12-20 06:30 | NUR ---
Patient in room PCU 3028. I have received report from MAMTA Tapia and had the opportunity to ask questions and assume patient care.
--- NOTE | 2018-12-20 06:41 | NUR ---
Patient in room PCU 3028. I have received report from Mikey OLEARY and had the opportunity to ask questions and assume patient care. Gave report to Vic OLEARY due to assignment change. Patient stable at transfer of care.
[2018-12-20] MEDS: albuterol 2.5 MG/3 ML nebule NEB SCH ×4 (07:18→19:39)
[2018-12-20] MEDS: budesonide 0.5mg/2ml UD nebule IH SCH ×3 (07:18→19:39)
[2018-12-20] MEDS: lactose-reduced food (Ensure Enlive) - 237ml bottle PO SCH ×3 (08:00→17:39)
[2018-12-20] MEDS: CITALOpram 10mg tablet PO SCH (09:01)
[2018-12-20] MEDS: lamoTRIgine 25mg tablet PO SCH ×2 (09:01→21:22)
[2018-12-20] MEDS: pantoprazole 40mg Tablet.DR PO SCH (09:01)
[2018-12-20] MEDS: lactobacillus rhamnosus 10,000 MMU CELLS/CAPSULE PO SCH ×2 (09:01→20:00)
[2018-12-20] MEDS: benztropine 1mg tablet PO SCH ×2 (09:01→21:24)
[2018-12-20] MEDS: acetaminophen 325mg tablet PO SCH ×2 (09:03→20:00)
[2018-12-20] MEDS: docusate sod 250mg capsule PO SCH ×2 (09:03→20:00)
[2018-12-20] MEDS: multivitamins, therapeutics tablet PO SCH (09:05)
[2018-12-20] MEDS: gabapentin 400mg capsule PO SCH ×2 (09:05→20:00)
[2018-12-20] MEDS: furosemide 40mg tablet PO SCH (09:05)
[2018-12-20] MEDS: potassium chloride 8mEq ER tablet PO SCH (09:05)
[2018-12-20] MEDS: lithium carbonate 150mg capsule PO SCH ×2 (09:05→20:15)
[2018-12-20] MEDS: metoprolol tartrate 25mg tablet PO SCH ×2 (09:06→20:08)
[2018-12-20] MEDS: DESMOPRESSIN ACETATE 0.1 MG PO SCH (09:12)
[2018-12-20] MEDS: OLANZAPINE 5 MG TABLET PO SCH (09:13)
[2018-12-20] MEDS ORDERED: levoFLOXACIN 250mg tablet PO SCH (11:00)
[2018-12-20 11:49] LABS: ALBUMIN 3.2 G/DL (3.4-5.0); ANION GAP 1 (8-16); BLOOD UREA NITROGEN 21 MG/DL (7-18); BUN/CREATININE RATIO 14.7 (6.6-38.0); CALCIUM 10.3 MG/DL (8.5-10.1); CHLORIDE 86 MMOL/L (99-107); CREATININE 1.43 MG/DL (0.40-0.90); GLUCOSE 124 MG/DL (70-104); POTASSIUM 4.3 MMOL/L (3.5-5.1); SODIUM 123 MMOL/L (135-145); TOTAL CARBON DIOXIDE 36.1 MMOL/L (24-32); eGFR 37 ML/MIN
[2018-12-20] MEDS: normal saline 1000ml 1,000 ML IV SCH (14:05)
--- NOTE | 2018-12-20 18:30 | NUR ---
Problems reprioritized. Patient report given, questions answered & plan of care reviewed with MAMTA Calix & MAMTA Mustafa.
--- NOTE | 2018-12-20 18:30 | NUR ---
Patient in room PCU 3028. I have received report from day shift rn and had the opportunity to ask questions and assume patient care with Fifi OLEARY.
[2018-12-20] MEDS: mirtazapine 15mg tablet PO SCH (21:00)
[2018-12-20] MEDS: traZODone 50mg tablet PO SCH (21:18)
[2018-12-20] MEDS: quetiapine 100mg tablet PO SCH (21:20)
[2018-12-20] MEDS: DESMOPRESSIN 0.2 MG PO SCH (21:21)
[2018-12-21 03:00] VITALS: BP 123/46
[2018-12-21] MEDS: normal saline 1000ml 1,000 ML IV SCH ×2 (03:53→17:46)
[2018-12-21 06:00] VITALS: BP 130/58
--- NOTE | 2018-12-21 06:25 | NUR ---
Problems reprioritized. Patient report given, questions answered & plan of care reviewed with emilio rn.
--- NOTE | 2018-12-21 06:26 | NUR ---
orientee documentation: I have reviewed and agree with all interventions, assessments performed and documented by Fifi OLEARY.
--- NOTE | 2018-12-21 06:30 | NUR ---
Patient in room PCU 3028. I have received report from Isis OLEARY and had the opportunity to ask questions and assume patient care.
[2018-12-21] MEDS: albuterol 2.5 MG/3 ML nebule NEB SCH ×4 (08:04→20:04)
[2018-12-21] MEDS: budesonide 0.5mg/2ml UD nebule IH SCH ×2 (08:04→20:04)
[2018-12-21] MEDS: lactobacillus rhamnosus 10,000 MMU CELLS/CAPSULE PO SCH ×2 (08:11→20:58)
[2018-12-21] MEDS: multivitamins, therapeutics tablet PO SCH (08:11)
[2018-12-21] MEDS: acetaminophen 325mg tablet PO SCH ×2 (08:12→21:01)
[2018-12-21] MEDS: benztropine 1mg tablet PO SCH ×2 (08:13→21:01)
[2018-12-21] MEDS: pantoprazole 40mg Tablet.DR PO SCH (08:13)
[2018-12-21] MEDS: lithium carbonate 150mg capsule PO SCH ×2 (08:13→21:17)
[2018-12-21] MEDS: docusate sod 250mg capsule PO SCH ×2 (08:13→20:00)
[2018-12-21] MEDS: furosemide 40mg tablet PO SCH (08:14)
[2018-12-21] MEDS: metoprolol tartrate 25mg tablet PO SCH ×2 (08:14→20:59)
[2018-12-21] MEDS: CITALOpram 10mg tablet PO SCH (08:14)
[2018-12-21] MEDS: gabapentin 400mg capsule PO SCH ×2 (08:14→20:58)
[2018-12-21] MEDS: potassium chloride 8mEq ER tablet PO SCH (08:15)
[2018-12-21] MEDS: DESMOPRESSIN ACETATE 0.1 MG PO SCH (08:15)
[2018-12-21] MEDS: lamoTRIgine 25mg tablet PO SCH ×2 (08:15→20:58)
[2018-12-21] MEDS: OLANZAPINE 5 MG TABLET PO SCH (08:15)
[2018-12-21] MEDS: lactose-reduced food (Ensure Enlive) - 237ml bottle PO SCH ×3 (08:16→18:00)
[2018-12-21 09:11] LABS: ALBUMIN 3.5 G/DL (3.4-5.0); ANION GAP 2 (8-16); BLOOD UREA NITROGEN 20 MG/DL (7-18); BUN/CREATININE RATIO 15.4 (6.6-38.0); CALCIUM 10.6 MG/DL (8.5-10.1); CHLORIDE 92 MMOL/L (99-107); GLUCOSE 118 MG/DL (70-104); SODIUM 128 MMOL/L (135-145); eGFR 42 ML/MIN
[2018-12-21 11:00] VITALS: BP 119/52
[2018-12-21 15:00] VITALS: BP 115/59
--- NOTE | 2018-12-21 15:29 | NUR ---
Patient was taken off 02 for monitoring, Patient initially was around 88-90 in saturations on room air for the first 10 minutes, then about 90 for another 5 minutes. Patient tolerated well. Respiratory monitored patient and found patient dropped to 87 on room air and was place back on 1 liter NC.
--- NOTE | 2018-12-21 15:59 | NUR ---
Pt diet request for blueberry yogurt which cannot be pureed so unable to send at this time; dietary aware. Addendum: 12/21/18 at [address] Amended: Links added.
[2018-12-21] MEDS: polyethylene glycol 3350 17gm powd pack PO SCH (17:28)
--- NOTE | 2018-12-21 18:00 | NUR ---
Patient still monitoring 02 saturation, sydnee noticed patients hands tend to be very cool to the touch so decided to use an 02 monitor on her earlobe. Patients saturation have been steady at 90-95 percent for last 2 hours on room air.
--- NOTE | 2018-12-21 18:21 | NUR ---
Patient in room PCU 3028. I have received report from ROCKY OLEARY and had the opportunity to ask questions and assume patient care WITH LISA OLEARY.
--- NOTE | 2018-12-21 18:30 | NUR ---
Problems reprioritized. Patient report given, questions answered & plan of care reviewed with Fifi OLEARY.
[2018-12-21 19:00] VITALS: BP 118/50
[2018-12-21] MEDS: ondansetron/PF 4mg/2ml inj IV PRN (19:09)
[2018-12-21] MEDS: quetiapine 100mg tablet PO SCH (20:58)
[2018-12-21] MEDS: traZODone 50mg tablet PO SCH (20:59)
[2018-12-21] MEDS: mirtazapine 15mg tablet PO SCH (21:00)
[2018-12-21] MEDS: DESMOPRESSIN 0.2 MG PO SCH (21:17)
[2018-12-21 23:00] VITALS: BP 127/58
[2018-12-22 03:00] VITALS: BP 104/48
--- NOTE | 2018-12-22 06:00 | NUR ---
Received report from MAMTA Mustafa. Assumed care of patient she is resting comfortably in bed.
--- NOTE | 2018-12-22 06:00 | NUR ---
Recieved report fptm,
--- NOTE | 2018-12-22 06:14 | NUR ---
Orientee documentation: I have reviewed and agree with all interventions, assessments performed and documented by bia eller .
--- NOTE | 2018-12-22 06:17 | NUR ---
Problems reprioritized. Patient report given, questions answered & plan of care reviewed with Ailyn and Juliane RNs.
--- NOTE | 2018-12-22 06:30 | NUR ---
Patient in room U 3028. I have received report from Moon OLEARY and had the opportunity to ask questions and assume patient care. Patient awake in bed and resting. In no acute distress.
[2018-12-22 07:00] VITALS: BP 149/60
[2018-12-22] MEDS: pantoprazole 40mg Tablet.DR PO SCH (07:30)
--- NOTE | 2018-12-22 07:30 | NUR ---
Patient's O2 sats were within normal limits for parameters (88-93%) on RA. Resting on room air, no dyspnea noted.
[2018-12-22] MEDS: DESMOPRESSIN ACETATE 0.1 MG PO SCH (08:00)
[2018-12-22] MEDS: lactose-reduced food (Ensure Enlive) - 237ml bottle PO SCH ×3 (08:00→18:00)
[2018-12-22] MEDS: albuterol 2.5 MG/3 ML nebule NEB SCH ×4 (08:13→19:51)
[2018-12-22] MEDS: budesonide 0.5mg/2ml UD nebule IH SCH ×2 (08:13→19:49)
[2018-12-22] MEDS: OLANZAPINE 5 MG TABLET PO SCH (08:58)
[2018-12-22] MEDS: multivitamins, therapeutics tablet PO SCH (08:58)
[2018-12-22] MEDS: docusate sod 250mg capsule PO SCH ×2 (08:58→20:01)
[2018-12-22] MEDS: potassium chloride 8mEq ER tablet PO SCH (08:58)
[2018-12-22] MEDS: lactobacillus rhamnosus 10,000 MMU CELLS/CAPSULE PO SCH ×2 (08:59→20:01)
[2018-12-22] MEDS: lamoTRIgine 25mg tablet PO SCH ×2 (08:59→20:01)
[2018-12-22] MEDS: gabapentin 400mg capsule PO SCH ×2 (08:59→20:01)
[2018-12-22] MEDS: CITALOpram 10mg tablet PO SCH (09:00)
--- NOTE | 2018-12-22 09:00 | NUR ---
Patient respiratory status is stable. Sa02 within normal limits, no dyspnea noted. saturation of o2 between 88-93%
[2018-12-22] MEDS: benztropine 1mg tablet PO SCH ×2 (09:01→20:07)
[2018-12-22] MEDS: furosemide 40mg tablet PO SCH (09:01)
[2018-12-22] MEDS: lithium carbonate 150mg capsule PO SCH ×2 (09:05→20:01)
[2018-12-22] MEDS: metoprolol tartrate 25mg tablet PO SCH ×2 (09:07→20:00)
[2018-12-22 09:10] LABS: ALBUMIN 3.3 G/DL (3.4-5.0); ANION GAP 3 (8-16); BLOOD UREA NITROGEN 24 MG/DL (7-18); BUN/CREATININE RATIO 15.8 (6.6-38.0); CALCIUM 10.3 MG/DL (8.5-10.1); CHLORIDE 100 MMOL/L (99-107); CREATININE 1.52 MG/DL (0.40-0.90); GLUCOSE 111 MG/DL (70-104); SODIUM 137 MMOL/L (135-145); TOTAL CARBON DIOXIDE 34.3 MMOL/L (24-32); eGFR 35 ML/MIN
[2018-12-22] MEDS: acetaminophen 325mg tablet PO SCH ×2 (09:18→20:03)
[2018-12-22 11:00] VITALS: BP 133/55
--- NOTE | 2018-12-22 11:00 | NUR ---
Sao2 low to mid 90's on room air.
[2018-12-22] MEDS: normal saline 1000ml 1,000 ML IV SCH (11:40)
--- NOTE | 2018-12-22 12:00 | NUR ---
Sao2 92% on Room air
[2018-12-22 12:50] LABS: ABG BASE EXCESS 7.6 mmol/L (-2.0-3.0); ABG HCO3 32.9 mmol/L (22.0-26.0); ABG OXYGEN SATURATION 88.4 % (95-98); ABG PCO2 (T) 50.2 mmHg (32.0-45.0); ABG PH (T) 7.435 (7.350-7.450); ABG PO2 (T) 51.8 mmHg (83-108); ALLEN'S TEST Positive; FLOW 21 L/min; FO2Hb 84.9 % (94-100); TOTAL HEMOGLOBIN 11.4 G/dl (12.0-16.0)
--- NOTE | 2018-12-22 13:30 | NUR ---
Sao2 92% on Room Air
--- NOTE | 2018-12-22 14:30 | NUR ---
Sao2 94% on room air
[2018-12-22 15:00] VITALS: BP 113/64
--- NOTE | 2018-12-22 16:37 | NUR ---
Conservator from [facility] visited. He wanted to talk to patient case manager regarding plan for placement. Left message with case management. He will follow up tmrw.
[2018-12-22 18:00] VITALS: BP 116/56
--- NOTE | 2018-12-22 18:30 | NUR ---
Patient in room PCU 3028. I have received report from Karina OLEARY and had the opportunity to ask questions and assume patient care.
--- NOTE | 2018-12-22 18:30 | NUR ---
Problems reprioritized. Patient report given, questions answered & plan of care reviewed with Moon OLEARY.
--- NOTE | 2018-12-22 18:30 | NUR ---
Patient in room PCU 3028. I have received report from Juliane OLEARY and had the opportunity to ask questions and assume patient care with Fifi OLEARY.
--- NOTE | 2018-12-22 19:24 | NUR ---
Orientee documentation: I have reviewed and agree with all interventions, assessments performed and documented by Karina OLEARY. Orientee Medication Administration: For this medication-pass time frame, all medication were reviewed, dispensed, administered and documented per hospital policy by MAMTA Collins.
[2018-12-22] MEDS: quetiapine 100mg tablet PO SCH (20:46)
[2018-12-22] MEDS: DESMOPRESSIN 0.2 MG PO SCH (20:46)
[2018-12-22] MEDS: traZODone 50mg tablet PO SCH (20:46)
[2018-12-22] MEDS: mirtazapine 15mg tablet PO SCH (20:47)
[2018-12-22 22:00] VITALS: BP 115/46
[2018-12-23 03:00] VITALS: BP 114/47
--- NOTE | 2018-12-23 05:12 | NUR ---
Pt was on RA and oxygen was sating in the 93-5% at the beginning of shift. At 1999, pt began to saturate at the mid 80% and was given 1L NC and was 93-5% thereafter. Did a trial of RA at 0030, oxygen held at 90-1% for 30min and needed further 1L NC once starting to sat at 83-6%. Pt desaturates when in deep sleep without oxygen.
--- NOTE | 2018-12-23 06:43 | NUR ---
Problems reprioritized. Patient report given, questions answered & plan of care reviewed with Dona and Juliane RNs.
--- NOTE | 2018-12-23 06:43 | NUR ---
Orientee documentation: I have reviewed and agree with all interventions, assessments performed and documented by Fifi OLEARY.
[2018-12-23 07:00] VITALS: BP 135/46
--- NOTE | 2018-12-23 07:01 | NUR ---
Received report from MAMTA Mustafa assumed care, patient resting comfortably, no apparent distress/
[2018-12-23] MEDS: albuterol 2.5 MG/3 ML nebule NEB SCH ×4 (07:30→19:24)
[2018-12-23] MEDS: budesonide 0.5mg/2ml UD nebule IH SCH ×2 (07:30→19:24)
[2018-12-23] MEDS: DESMOPRESSIN ACETATE 0.1 MG PO SCH (08:29)
[2018-12-23] MEDS: potassium chloride 8mEq ER tablet PO SCH (08:29)
[2018-12-23] MEDS: lactobacillus rhamnosus 10,000 MMU CELLS/CAPSULE PO SCH ×2 (08:30→20:39)
[2018-12-23] MEDS: metoprolol tartrate 25mg tablet PO SCH ×2 (08:32→20:39)
[2018-12-23] MEDS: OLANZAPINE 5 MG TABLET PO SCH (08:33)
[2018-12-23] MEDS: lithium carbonate 150mg capsule PO SCH ×2 (08:34→20:40)
[2018-12-23] MEDS: gabapentin 400mg capsule PO SCH ×2 (08:35→20:39)
[2018-12-23] MEDS: furosemide 40mg tablet PO SCH (08:35)
[2018-12-23] MEDS: lamoTRIgine 25mg tablet PO SCH ×2 (08:36→20:40)
[2018-12-23] MEDS: CITALOpram 10mg tablet PO SCH (08:36)
[2018-12-23] MEDS: docusate sod 250mg capsule PO SCH ×2 (08:37→20:39)
[2018-12-23] MEDS: multivitamins, therapeutics tablet PO SCH (08:39)
[2018-12-23] MEDS: acetaminophen 325mg tablet PO SCH ×2 (08:46→20:41)
[2018-12-23] MEDS: benztropine 1mg tablet PO SCH ×2 (08:47→20:41)
[2018-12-23] MEDS: lactose-reduced food (Ensure Enlive) - 237ml bottle PO SCH ×3 (08:47→18:00)
--- NOTE | 2018-12-23 09:22 | NUR ---
Reassessment: Pt hypoxic on oxygen via nasal cannula per MD notes. Pt with fluctuating PO intake with recent average 50-75% of meals and 75-100% PO intake of Ensure Enlive TID likely meeting nutrient needs. [facility] 12/22. Will continue to follow. Recommendations: 1) Continue lactose free pureed diet with fluid restrict per MD 2) Ensure Enlive TID 3) Routine bowel care; monitor need for additional 4) Wt per rx Addendum: 12/23/18 at [address] Amended: Links added.
--- NOTE | 2018-12-23 09:24 | NUR ---
Paged Dr. Zabala re PT order. PAGER ID: [phone] MESSAGE: Sofiya Ugarte in [phone] was d/c'd from PT 12/18. I'll re-order. Thanks! Dona OLEARY
[2018-12-23 11:00] VITALS: BP 135/55
[2018-12-23 15:00] VITALS: BP 125/57
[2018-12-23] MEDS: polyethylene glycol 3350 17gm powd pack PO SCH (16:12)
--- NOTE | 2018-12-23 17:32 | NUR ---
Isidro Ugarte RM 6908B needs a written Rx for a non formulary med Desmopressin 0.1mg 3 tabs q am #30 to [facility] for delivery to [facility] MAMTA Collins Addendum: 12/23/18 at 1737 by Roxie Palomino RN Dr Zabala Telephone Order ok to call in to [facility]
--- NOTE | 2018-12-23 17:56 | NUR ---
Orientee documentation: I have reviewed and agree with all interventions, assessments performed and documented by MAMTA Collins.
[2018-12-23 18:00] VITALS: BP 131/39
--- NOTE | 2018-12-23 18:36 | NUR ---
Problems reprioritized. Patient report given, questions answered & plan of care reviewed with MAMTA Cain.
[2018-12-23] MEDS: traZODone 50mg tablet PO SCH (20:39)
[2018-12-23] MEDS: quetiapine 100mg tablet PO SCH (20:41)
[2018-12-23] MEDS: mirtazapine 15mg tablet PO SCH (20:41)
[2018-12-23] MEDS: DESMOPRESSIN 0.2 MG PO SCH (20:42)
[2018-12-23 23:00] VITALS: BP 123/61
[2018-12-24 03:00] VITALS: BP 120/65
--- NOTE | 2018-12-24 06:25 | NUR ---
Patient in room PCU 3028. I have received report from MAMTA Cain and had the opportunity to ask questions and assume patient care. Patient is currently resting in bed, bed locked and low, call light in reach, bed alarm on. No acute distress, no needs at this time.
[2018-12-24 07:00] VITALS: BP 120/61
[2018-12-24] MEDS: albuterol 2.5 MG/3 ML nebule NEB SCH ×4 (07:00→20:06)
[2018-12-24] MEDS: gabapentin 400mg capsule PO SCH ×2 (07:59→20:07)
[2018-12-24] MEDS: lithium carbonate 150mg capsule PO SCH ×2 (08:00→20:05)
[2018-12-24] MEDS: OLANZAPINE 5 MG TABLET PO SCH (08:00)
[2018-12-24] MEDS: pantoprazole 40mg Tablet.DR PO SCH (08:00)
[2018-12-24] MEDS: benztropine 1mg tablet PO SCH ×2 (08:00→20:09)
[2018-12-24] MEDS: metoprolol tartrate 25mg tablet PO SCH ×2 (08:01→20:12)
[2018-12-24] MEDS: multivitamins, therapeutics tablet PO SCH (08:01)
[2018-12-24] MEDS: lamoTRIgine 25mg tablet PO SCH ×2 (08:02→20:08)
[2018-12-24] MEDS: CITALOpram 10mg tablet PO SCH (08:02)
[2018-12-24] MEDS: potassium chloride 8mEq ER tablet PO SCH (08:02)
[2018-12-24] MEDS: docusate sod 250mg capsule PO SCH ×2 (08:02→20:07)
[2018-12-24] MEDS: acetaminophen 325mg tablet PO SCH ×2 (08:03→20:06)
[2018-12-24] MEDS: furosemide 40mg tablet PO SCH (08:04)
[2018-12-24] MEDS: lactobacillus rhamnosus 10,000 MMU CELLS/CAPSULE PO SCH ×2 (08:04→20:12)
[2018-12-24] MEDS: lactose-reduced food (Ensure Enlive) - 237ml bottle PO SCH ×3 (08:14→18:00)
[2018-12-24] MEDS: budesonide 0.5mg/2ml UD nebule IH SCH ×2 (12:13→20:06)
--- NOTE | 2018-12-24 13:00 | NUR ---
Patient in room PCU 3028. I have received report from and had the opportunity to ask questions and assume patient care MAMTA Richey.
--- NOTE | 2018-12-24 14:02 | NUR ---
Patient report given, questions answered & plan of care reviewed with MAMTA Juárez. patient is currently resting in bed, bed locked and low, call light in reach. Agitated due to SPO2 monitor on ear becoming tangled in her hair, nurse aide working on problem, no acute distress, patient physically stable at time of hand off.
[2018-12-24] MEDS: DESMOPRESSIN ACETATE 0.1 MG PO SCH (14:35)
--- NOTE | 2018-12-24 14:54 | NUR ---
Bri documentation: I have reviewed and agree with all interventions, assessments performed and documented by Treva OLEARY. Bri Medication Administration: For this medication-pass time frame, all medication were reviewed, dispensed, administered and documented per hospital policy by Treva OLEARY Addendum: 12/24/18 at 1455 by Floresita Canales RN Not entered in error, reviewed documentation and medication administrations of Rossi OLEARY not Treva OLEARY
[2018-12-24 15:15] VITALS: BP 112/44
[2018-12-24 18:00] VITALS: BP 129/68
--- NOTE | 2018-12-24 18:17 | NUR ---
Pt given bed bath, applied lotion, changed bedding, assisted with dinner. Problems reprioritized. Patient report given, questions answered & plan of care reviewed with MAMTA Carrion.
--- NOTE | 2018-12-24 18:35 | NUR ---
Patient in room PCU 3028. I have received report from Marquita OLEARY and had the opportunity to ask questions and assume patient care.
[2018-12-24] MEDS: mirtazapine 15mg tablet PO SCH (20:10)
[2018-12-24] MEDS: traZODone 50mg tablet PO SCH (20:11)
[2018-12-24] MEDS: quetiapine 100mg tablet PO SCH (20:11)
[2018-12-24] MEDS: DESMOPRESSIN 0.2 MG PO SCH (20:12)
[2018-12-24 22:00] VITALS: BP 129/46
[2018-12-25] VITALS (7 sets, daily range): BP systolic 91–130; BP diastolic 46–62
--- NOTE | 2018-12-25 06:06 | NUR ---
Problems reprioritized. Patient report given, questions answered & plan of care reviewed with Floresita OLEARY.
--- NOTE | 2018-12-25 06:15 | NUR ---
Patient in room PCU 3028. I have received report from Sheyla OLEARY and had the opportunity to ask questions and assume patient care.
[2018-12-25] MEDS: albuterol 2.5 MG/3 ML nebule NEB SCH ×4 (07:23→20:27)
[2018-12-25] MEDS: budesonide 0.5mg/2ml UD nebule IH SCH ×2 (07:23→20:30)
[2018-12-25] MEDS: lactose-reduced food (Ensure Enlive) - 237ml bottle PO SCH ×3 (08:00→18:00)
[2018-12-25] MEDS: lactobacillus rhamnosus 10,000 MMU CELLS/CAPSULE PO SCH ×2 (09:34→20:45)
[2018-12-25] MEDS: gabapentin 400mg capsule PO SCH ×2 (09:36→20:45)
[2018-12-25] MEDS: acetaminophen 325mg tablet PO SCH ×2 (09:36→20:46)
[2018-12-25] MEDS: furosemide 40mg tablet PO SCH (09:37)
[2018-12-25] MEDS: lamoTRIgine 25mg tablet PO SCH ×2 (09:37→20:46)
[2018-12-25] MEDS: pantoprazole 40mg Tablet.DR PO SCH (09:37)
[2018-12-25] MEDS: potassium chloride 8mEq ER tablet PO SCH (09:37)
[2018-12-25] MEDS: CITALOpram 10mg tablet PO SCH (09:38)
[2018-12-25] MEDS: docusate sod 250mg capsule PO SCH ×2 (09:38→20:47)
[2018-12-25] MEDS: OLANZAPINE 5 MG TABLET PO SCH (09:38)
[2018-12-25] MEDS: lithium carbonate 150mg capsule PO SCH ×2 (09:39→20:47)
[2018-12-25] MEDS: benztropine 1mg tablet PO SCH ×2 (09:40→20:46)
[2018-12-25] MEDS: metoprolol tartrate 25mg tablet PO SCH ×2 (09:41→20:47)
[2018-12-25] MEDS: multivitamins, therapeutics tablet PO SCH (09:41)
[2018-12-25] MEDS: DESMOPRESSIN ACETATE 0.1 MG PO SCH (10:46)
--- NOTE | 2018-12-25 11:29 | NUR ---
Patient in room PCU 3028B. I have received report from MAMTA Carrion and had the opportunity to ask questions and assume patient care.
[2018-12-25] MEDS: polyethylene glycol 3350 17gm powd pack PO SCH (16:32)
--- NOTE | 2018-12-25 16:32 | NUR ---
Saw pt today, removed Sacral dressing, cleansed area with NS and dried. Wound appeared closed. Re-applied optifoam
--- NOTE | 2018-12-25 18:04 | NUR ---
Orientee documentation: I have reviewed and agree with all interventions, assessments performed and documented by Paramjit OLEARY. Orientee Medication Administration: For this medication-pass time frame, all medication were reviewed, dispensed, administered and documented per hospital policy by Paramjit OLEARY
--- NOTE | 2018-12-25 18:26 | NUR ---
Problems reprioritized. Patient report given, questions answered & plan of care reviewed with Annita OLEARY.
--- NOTE | 2018-12-25 19:16 | NUR ---
Patient in room PCU 3028. I have received report from Floresita OLEARY and had the opportunity to ask questions and assume patient care.
[2018-12-25] MEDS: mineral oil/petrolatum, white cream 113gm jar TP SCH (20:45)
[2018-12-25] MEDS: DESMOPRESSIN 0.2 MG PO SCH (20:45)
[2018-12-25] MEDS: mirtazapine 15mg tablet PO SCH (20:46)
[2018-12-25] MEDS: quetiapine 100mg tablet PO SCH (20:47)
[2018-12-25] MEDS: traZODone 50mg tablet PO SCH (20:47)
[2018-12-26] VITALS (7 sets, daily range): BP systolic 90–118; BP diastolic 47–64
--- NOTE | 2018-12-26 00:35 | NUR ---
Problems reprioritized. Patient report given, questions answered & plan of care reviewed with MAMTA King.
--- NOTE | 2018-12-26 00:37 | NUR ---
Patient in room PCU 3028. I have received report from MAMTA Ariza and had the opportunity to ask questions and assume patient care.
--- NOTE | 2018-12-26 06:16 | NUR ---
Problems reprioritized. Patient report given, questions answered & plan of care reviewed with Dona RN. Patient is resting and shows no sign distress.
[2018-12-26 06:25] LABS: BASOPHILS # (AUTO) 0.1 X10'3 (0-0.2); BASOPHILS % (AUTO) 0.5 % (0-1); EOSINOPHILS # (AUTO) 0.5 X10'3 (0-0.9); EOSINOPHILS % (AUTO) 4.2 % (0-6); HEMATOCRIT 37.1 % (35.0-45.0); HEMOGLOBIN 12.3 g/dl (12.0-16.0); LYMPHOCYTES # (AUTO) 1.1 X10'3 (1.1-4.8); LYMPHOCYTES % (AUTO) 8.7 % (21-51); MEAN CORPUSCULAR HEMOGLOBIN 33.4 PG (27.0-31.0); MEAN CORPUSCULAR HGB CONC 33.2 g/dL (33.0-36.5); MEAN CORPUSCULAR VOLUME 100.6 FL (78-98); MEAN PLATELET VOLUME 8.6 FL (7.4-10.4); MONOCYTES % (AUTO) 8.3 % (2-12); NEUTROPHILS # (AUTO) 9.8 X10'3 (1.8-7.7); NEUTROPHILS % (AUTO) 78.3 % (42-75); PLATELET COUNT 268 X10'3 (140-440); RED BLOOD COUNT 3.69 X10'6 (4.20-5.60); RED CELL DISTRIBUTION WIDTH 14.1 % (11.5-14.5); WHITE BLOOD COUNT 12.5 X10'3 (4.5-11.0)
[2018-12-26 06:28] LABS: ALBUMIN 3.2 G/DL (3.4-5.0); ANION GAP 6 (8-16); BLOOD UREA NITROGEN 55 MG/DL (7-18); BUN/CREATININE RATIO 28.1 (6.6-38.0); CHLORIDE 104 MMOL/L (99-107); CREATININE 1.96 MG/DL (0.40-0.90); GLUCOSE 98 MG/DL (70-104); SODIUM 141 MMOL/L (135-145); TOTAL CARBON DIOXIDE 31.3 MMOL/L (24-32); eGFR 26 ML/MIN
[2018-12-26] MEDS: albuterol 2.5 MG/3 ML nebule NEB SCH ×3 (06:54→15:00)
[2018-12-26] MEDS: budesonide 0.5mg/2ml UD nebule IH SCH ×2 (06:54→20:18)
[2018-12-26] MEDS: lactose-reduced food (Ensure Enlive) - 237ml bottle PO SCH ×3 (08:00→18:23)
[2018-12-26] MEDS: furosemide 40mg tablet PO SCH (08:00)
[2018-12-26] MEDS: metoprolol tartrate 25mg tablet PO SCH ×2 (08:00→19:02)
[2018-12-26] MEDS: potassium chloride 8mEq ER tablet PO SCH (08:53)
[2018-12-26] MEDS: benztropine 1mg tablet PO SCH ×2 (08:56→19:03)
[2018-12-26] MEDS: acetaminophen 325mg tablet PO SCH ×2 (08:57→19:03)
[2018-12-26] MEDS: docusate sod 250mg capsule PO SCH ×2 (08:57→19:03)
[2018-12-26] MEDS: OLANZAPINE 5 MG TABLET PO SCH (08:57)
[2018-12-26] MEDS: lactobacillus rhamnosus 10,000 MMU CELLS/CAPSULE PO SCH ×2 (08:57→19:03)
[2018-12-26] MEDS: CITALOpram 10mg tablet PO SCH (08:57)
[2018-12-26] MEDS: lithium carbonate 150mg capsule PO SCH ×2 (08:58→19:04)
[2018-12-26] MEDS: gabapentin 400mg capsule PO SCH ×2 (08:58→19:03)
[2018-12-26] MEDS: multivitamins, therapeutics tablet PO SCH (08:58)
[2018-12-26] MEDS: DESMOPRESSIN ACETATE 0.1 MG PO SCH (08:58)
[2018-12-26] MEDS: lamoTRIgine 25mg tablet PO SCH ×2 (08:58→19:03)
[2018-12-26] MEDS: mineral oil/petrolatum, white cream 113gm jar TP SCH (08:59)
[2018-12-26] MEDS: pantoprazole 40mg Tablet.DR PO SCH (09:15)
[2018-12-26] MEDS: aspirin 81mg tablet.DR PO SCH (17:21)
[2018-12-26] MEDS: potassium cl 20mEq in 1/2 NS 1,000 ML IV SCH (17:22)
--- NOTE | 2018-12-26 18:21 | NUR ---
Patient in room PCU 3028Bb. I have received report from MAMTA Carcamo and had the opportunity to ask questions and assume patient care.
--- NOTE | 2018-12-26 18:33 | NUR ---
Problems reprioritized. Patient report given, questions answered & plan of care reviewed with MAMTA Kelly.
[2018-12-26] MEDS: heparin, porcine 5000 units/ml vial SQ SCH (19:04)
[2018-12-26] MEDS: mirtazapine 15mg tablet PO SCH (20:14)
[2018-12-26] MEDS: quetiapine 100mg tablet PO SCH (20:14)
[2018-12-26] MEDS: DESMOPRESSIN 0.2 MG PO SCH (20:14)
[2018-12-26] MEDS: traZODone 50mg tablet PO SCH (20:14)
[2018-12-27 02:00] VITALS: BP 115/56
[2018-12-27] MEDS: potassium cl 20mEq in 1/2 NS 1,000 ML IV SCH ×3 (05:33→21:21)
[2018-12-27 06:09] LABS: BASOPHILS % (AUTO) 0.4 % (0-1); EOSINOPHILS # (AUTO) 0.5 X10'3 (0-0.9); EOSINOPHILS % (AUTO) 4.3 % (0-6); HEMATOCRIT 35.4 % (35.0-45.0); HEMOGLOBIN 12.1 g/dl (12.0-16.0); LYMPHOCYTES # (AUTO) 0.9 X10'3 (1.1-4.8); LYMPHOCYTES % (AUTO) 8.5 % (21-51); MEAN CORPUSCULAR HEMOGLOBIN 34.1 PG (27.0-31.0); MEAN CORPUSCULAR HGB CONC 34.1 g/dL (33.0-36.5); MEAN CORPUSCULAR VOLUME 99.9 FL (78-98); MEAN PLATELET VOLUME 8.6 FL (7.4-10.4); MONOCYTES # (AUTO) 0.7 X10'3 (0-0.9); MONOCYTES % (AUTO) 6.4 % (2-12); NEUTROPHILS # (AUTO) 8.8 X10'3 (1.8-7.7); NEUTROPHILS % (AUTO) 80.4 % (42-75); PLATELET COUNT 246 X10'3 (140-440); RED BLOOD COUNT 3.55 X10'6 (4.20-5.60); RED CELL DISTRIBUTION WIDTH 14.3 % (11.5-14.5)
[2018-12-27 06:12] LABS: ALBUMIN 3.1 G/DL (3.4-5.0); ANION GAP 3 (8-16); BLOOD UREA NITROGEN 49 MG/DL (7-18); BUN/CREATININE RATIO 26.8 (6.6-38.0); CALCIUM 10.4 MG/DL (8.5-10.1); CHLORIDE 106 MMOL/L (99-107); CREATININE 1.83 MG/DL (0.40-0.90); GLUCOSE 92 MG/DL (70-104); POTASSIUM 4.3 MMOL/L (3.5-5.1); SODIUM 139 MMOL/L (135-145); TOTAL CARBON DIOXIDE 30.3 MMOL/L (24-32); eGFR 28 ML/MIN
--- NOTE | 2018-12-27 06:25 | NUR ---
Problems reprioritized. Patient report given, questions answered & plan of care reviewed with MAMTA ROMERO.
--- NOTE | 2018-12-27 06:29 | NUR ---
Patient in room PCU 3028. I have received report from Leticia OLEARY and had the opportunity to ask questions and assume patient care.
[2018-12-27] MEDS: budesonide 0.5mg/2ml UD nebule IH SCH ×2 (07:54→20:25)
[2018-12-27] MEDS: albuterol 2.5 MG/3 ML nebule NEB PRN ×2 (07:54→20:25)
[2018-12-27] MEDS: lactose-reduced food (Ensure Enlive) - 237ml bottle PO SCH ×3 (08:00→18:00)
[2018-12-27] MEDS: heparin, porcine 5000 units/ml vial SQ SCH ×2 (09:36→21:13)
[2018-12-27] MEDS: lactobacillus rhamnosus 10,000 MMU CELLS/CAPSULE PO SCH ×2 (09:36→21:10)
[2018-12-27] MEDS: OLANZAPINE 5 MG TABLET PO SCH (09:36)
[2018-12-27] MEDS: metoprolol tartrate 25mg tablet PO SCH ×2 (09:37→21:12)
[2018-12-27] MEDS: benztropine 1mg tablet PO SCH ×2 (09:37→21:11)
[2018-12-27] MEDS: aspirin 81mg tablet.DR PO SCH (09:37)
[2018-12-27] MEDS: gabapentin 400mg capsule PO SCH ×2 (09:37→21:10)
[2018-12-27] MEDS: pantoprazole 40mg Tablet.DR PO SCH (09:37)
[2018-12-27] MEDS: docusate sod 250mg capsule PO SCH ×2 (09:38→21:12)
[2018-12-27] MEDS: CITALOpram 10mg tablet PO SCH (09:38)
[2018-12-27] MEDS: acetaminophen 325mg tablet PO SCH ×2 (09:39→21:10)
[2018-12-27] MEDS: lamoTRIgine 25mg tablet PO SCH ×2 (09:39→21:11)
[2018-12-27] MEDS: multivitamins, therapeutics tablet PO SCH (09:39)
[2018-12-27] MEDS: mineral oil/petrolatum, white cream 113gm jar TP SCH (09:40)
[2018-12-27] MEDS: DESMOPRESSIN ACETATE 0.1 MG PO SCH (09:41)
--- NOTE | 2018-12-27 10:14 | NUR ---
Page to Dr Mlies re: Room 3026B Sofiya Ugarte SAI Wilhoit level 12/13/2018 1.1, no level drawn since then. Do you want a lithium level. Med held this am, do you want me to give? Laxmi [id number], awaiting response
[2018-12-27] MEDS: lithium carbonate 150mg capsule PO SCH ×2 (10:52→21:11)
[2018-12-27] MEDS: polyethylene glycol 3350 17gm powd pack PO SCH (17:13)
[2018-12-27 18:00] VITALS: BP 105/62
--- NOTE | 2018-12-27 18:58 | NUR ---
Problems reprioritized. Patient report given, questions answered & plan of care reviewed with Manuela OLEARY.
[2018-12-27] MEDS: mirtazapine 15mg tablet PO SCH (21:10)
[2018-12-27] MEDS: traZODone 50mg tablet PO SCH (21:11)
[2018-12-27] MEDS: quetiapine 100mg tablet PO SCH (21:11)
[2018-12-27] MEDS: DESMOPRESSIN 0.2 MG PO SCH (21:12)
[2018-12-27 22:00] VITALS: BP 129/56
[2018-12-28 02:00] VITALS: BP_SYST 130; BP_SYST 166; BP_DIAS 40; BP_DIAS 58
--- NOTE | 2018-12-28 06:25 | NUR ---
Patient in room PCU 3028. I have received report from Manuela Man RN and had the opportunity to ask questions and assume patient care.
--- NOTE | 2018-12-28 06:36 | NUR ---
Problems reprioritized. Patient report given, questions answered & plan of care reviewed with MAMTA Vail.
[2018-12-28 06:40] LABS: ALBUMIN 3.4 G/DL (3.4-5.0); ANION GAP 3 (8-16); BLOOD UREA NITROGEN 37 MG/DL (7-18); BUN/CREATININE RATIO 26.2 (6.6-38.0); CALCIUM 11.2 MG/DL (8.5-10.1); CHLORIDE 109 MMOL/L (99-107); CREATININE 1.41 MG/DL (0.40-0.90); GLUCOSE 88 MG/DL (70-104); POTASSIUM 4.8 MMOL/L (3.5-5.1); SODIUM 140 MMOL/L (135-145); TOTAL CARBON DIOXIDE 28.3 MMOL/L (24-32); eGFR 38 ML/MIN
[2018-12-28 07:06] VITALS: BP_SYST 110; BP_SYST 119; BP_DIAS 32; BP_DIAS 36
[2018-12-28] MEDS: lactose-reduced food (Ensure Enlive) - 237ml bottle PO SCH ×3 (08:00→17:56)
[2018-12-28] MEDS: mineral oil/petrolatum, white cream 113gm jar TP SCH (08:00)
[2018-12-28] MEDS: budesonide 0.5mg/2ml UD nebule IH SCH ×2 (08:10→19:13)
[2018-12-28] MEDS: pantoprazole 40mg Tablet.DR PO SCH (09:22)
[2018-12-28] MEDS: CITALOpram 10mg tablet PO SCH (09:23)
[2018-12-28] MEDS: benztropine 1mg tablet PO SCH ×2 (09:23→19:29)
[2018-12-28] MEDS: lactobacillus rhamnosus 10,000 MMU CELLS/CAPSULE PO SCH ×2 (09:24→19:28)
[2018-12-28] MEDS: aspirin 81mg tablet.DR PO SCH (09:24)
[2018-12-28] MEDS: docusate sod 250mg capsule PO SCH ×2 (09:24→20:00)
[2018-12-28] MEDS: lamoTRIgine 25mg tablet PO SCH ×2 (09:25→19:29)
[2018-12-28] MEDS: lithium carbonate 150mg capsule PO SCH ×2 (09:25→19:28)
[2018-12-28] MEDS: metoprolol tartrate 25mg tablet PO SCH (09:26)
[2018-12-28] MEDS: gabapentin 400mg capsule PO SCH ×2 (09:26→19:28)
[2018-12-28] MEDS: DESMOPRESSIN ACETATE 0.1 MG PO SCH (09:26)
[2018-12-28] MEDS: multivitamins, therapeutics tablet PO SCH (09:27)
[2018-12-28] MEDS: acetaminophen 325mg tablet PO SCH ×2 (09:28→19:31)
[2018-12-28] MEDS: OLANZAPINE 5 MG TABLET PO SCH (09:28)
[2018-12-28] MEDS: heparin, porcine 5000 units/ml vial SQ SCH ×2 (09:29→19:37)
[2018-12-28] MEDS: potassium cl 20mEq in 1/2 NS 1,000 ML IV SCH (09:34)
--- NOTE | 2018-12-28 09:45 | NUR ---
Patient became very short of breath. cartography technician said that she had a sinus arrhythmia/arrest and then her HR went down to the 30's and 40's. Patient was put on 2L of oxygen and Dr. Miles was notified. The patient's saturation had dropped to the 70's but they came back up on the 2L of O2. Dr. Miles came by and looked at her strip and saw the patient. No new orders taken.
--- NOTE | 2018-12-28 11:27 | NUR ---
Reassessment: Pt PO 100% meals increasing yesterday. On pureed/lactose free/fluid restricted diet drinking 100% ONS as well. Pt possible aspiration on admit and placed on pureed diet w/o LEAD ADVISOR BSS. RD ordered LEAD ADVISOR BSS for liquid consistency and texture recs. Pt hx dementia AOX2. LBM 12/23; receiving colace routinely ROSALINE d/w RN for additional routine bowel care per MD approval. Will continue to monitor. Recommendations: 1) Continue lactose free pureed diet; liquid/texture per LEAD ADVISOR recs 2) Ensure Enlive TID 3) Routine bowel care; additional per MD for constipation 4) Wt per rx Addendum: 12/28/18 at [address] Amended: Links added.
[2018-12-28 11:55] VITALS: BP 122/80
[2018-12-28 15:00] VITALS: BP 102/44
[2018-12-28] MEDS: furosemide 20MG tablet PO SCH (16:13)
[2018-12-28 18:00] VITALS: BP 115/59
--- NOTE | 2018-12-28 18:00 | NUR ---
Patient in room PCU 3028. I have received report from Helga OLEARY and had the opportunity to ask questions and assume patient care.
--- NOTE | 2018-12-28 18:18 | NUR ---
Problems reprioritized. Patient report given, questions answered & plan of care reviewed with MAMTA Mustafa and MAMTA Calix.
--- NOTE | 2018-12-28 18:24 | NUR ---
Patient in room PCU 3028. I have received report from Helga OLEARY and had the opportunity to ask questions and assume patient care with Fifi OLEARY.
[2018-12-28] MEDS: albuterol 2.5 MG/3 ML nebule NEB PRN (19:13)
[2018-12-28] MEDS: mirtazapine 15mg tablet PO SCH (21:00)
[2018-12-28] MEDS: traZODone 50mg tablet PO SCH (21:00)
[2018-12-28] MEDS: DESMOPRESSIN 0.2 MG PO SCH (21:00)
[2018-12-28] MEDS: quetiapine 100mg tablet PO SCH (21:00)
[2018-12-28 22:00] VITALS: BP 108/59
[2018-12-29 02:00] VITALS: BP 111/65
--- NOTE | 2018-12-29 06:27 | NUR ---
Patient in room PCU 3028. I have received report from Moon OLEARY and had the opportunity to ask questions and assume patient care.
[2018-12-29 07:00] VITALS: BP 100/54
[2018-12-29] MEDS: pantoprazole 40mg Tablet.DR PO SCH (07:30)
[2018-12-29] MEDS: CITALOpram 10mg tablet PO SCH (08:00)
[2018-12-29] MEDS: lactose-reduced food (Ensure Enlive) - 237ml bottle PO SCH ×3 (08:00→13:03)
[2018-12-29] MEDS: lactobacillus rhamnosus 10,000 MMU CELLS/CAPSULE PO SCH ×2 (08:00→19:23)
[2018-12-29] MEDS: heparin, porcine 5000 units/ml vial SQ SCH ×2 (08:00→19:36)
[2018-12-29] MEDS: aspirin 81mg tablet.DR PO SCH (08:00)
[2018-12-29] MEDS: benztropine 1mg tablet PO SCH ×2 (08:05→19:25)
[2018-12-29] MEDS: docusate sod 250mg capsule PO SCH ×2 (08:05→19:23)
[2018-12-29] MEDS: furosemide 20MG tablet PO SCH (08:09)
[2018-12-29] MEDS: gabapentin 400mg capsule PO SCH ×2 (08:09→19:23)
[2018-12-29] MEDS: lamoTRIgine 25mg tablet PO SCH ×2 (08:09→19:37)
[2018-12-29] MEDS: lithium carbonate 150mg capsule PO SCH ×2 (08:10→19:23)
[2018-12-29] MEDS: DESMOPRESSIN ACETATE 0.1 MG PO SCH (08:11)
[2018-12-29] MEDS: multivitamins, therapeutics tablet PO SCH (08:13)
[2018-12-29] MEDS: OLANZAPINE 5 MG TABLET PO SCH (08:14)
[2018-12-29] MEDS: acetaminophen 325mg tablet PO SCH ×2 (08:14→19:25)
[2018-12-29] MEDS: mineral oil/petrolatum, white cream 113gm jar TP SCH (08:21)
[2018-12-29] MEDS: budesonide 0.5mg/2ml UD nebule IH SCH ×2 (08:35→20:22)
[2018-12-29 11:00] VITALS: BP 141/59
--- NOTE | 2018-12-29 13:17 | NUR ---
PAGER ID: [phone] MESSAGE: Curt [id number] Pelayo. Pt is out of a home medication, I need an order for the Rx if possible. Regina [phone]
[2018-12-29 15:00] VITALS: BP 115/53
[2018-12-29] MEDS: polyethylene glycol 3350 17gm powd pack PO SCH (16:36)
--- NOTE | 2018-12-29 18:15 | NUR ---
Patient in room PCU 3028. I have received report from Regina OLEARY and had the opportunity to ask questions and assume patient care.
--- NOTE | 2018-12-29 18:17 | NUR ---
Problems reprioritized. Patient report given, questions answered & plan of care reviewed with Samantha OLEARY. Patient stable at transfer of care.
[2018-12-29 19:00] VITALS: BP 118/56
[2018-12-29] MEDS: albuterol 2.5 MG/3 ML nebule NEB PRN (20:22)
[2018-12-29] MEDS: quetiapine 100mg tablet PO SCH (20:44)
[2018-12-29] MEDS: traZODone 50mg tablet PO SCH (20:45)
[2018-12-29] MEDS: mirtazapine 15mg tablet PO SCH (20:45)
[2018-12-29] MEDS ORDERED: MISCELLANEOUS ORAL SOLID PO SCH (21:00)
[2018-12-29 23:00] VITALS: BP 118/60
--- NOTE | 2018-12-30 06:00 | NUR ---
Received report from Isabelle, assumed care of patient, she is resting comfortably ion bed no aaparent distress
--- NOTE | 2018-12-30 06:09 | NUR ---
Problems reprioritized. Patient report given, questions answered & plan of care reviewed with Regina OLEARY and Karina OLEARY.
--- NOTE | 2018-12-30 06:33 | NUR ---
Patient in room PCU 3028. I have received report from Samantha OLEARY and had the opportunity to ask questions and assume patient care.
[2018-12-30 06:59] LABS: ALBUMIN 3.3 G/DL (3.4-5.0); ANION GAP 4 (8-16); BLOOD UREA NITROGEN 41 MG/DL (7-18); BUN/CREATININE RATIO 28.7 (6.6-38.0); CALCIUM 11.4 MG/DL (8.5-10.1); CHLORIDE 106 MMOL/L (99-107); CREATININE 1.43 MG/DL (0.40-0.90); GLUCOSE 91 MG/DL (70-104); SODIUM 141 MMOL/L (135-145); TOTAL CARBON DIOXIDE 31.3 MMOL/L (24-32); eGFR 37 ML/MIN
[2018-12-30 07:00] VITALS: BP 123/54
[2018-12-30 07:03] LABS: POTASSIUM 4.9 MMOL/L (3.5-5.1)
[2018-12-30] MEDS: pantoprazole 40mg Tablet.DR PO SCH (07:36)
[2018-12-30] MEDS: CITALOpram 10mg tablet PO SCH (07:36)
[2018-12-30] MEDS: benztropine 1mg tablet PO SCH ×2 (07:37→19:34)
[2018-12-30] MEDS: gabapentin 400mg capsule PO SCH ×2 (07:37→19:34)
[2018-12-30] MEDS: docusate sod 250mg capsule PO SCH ×2 (07:37→19:37)
[2018-12-30] MEDS: lactobacillus rhamnosus 10,000 MMU CELLS/CAPSULE PO SCH ×2 (07:37→19:37)
[2018-12-30] MEDS: lamoTRIgine 25mg tablet PO SCH ×2 (07:38→19:32)
[2018-12-30] MEDS: furosemide 20MG tablet PO SCH (07:38)
[2018-12-30] MEDS: aspirin 81mg tablet.DR PO SCH (07:38)
[2018-12-30] MEDS: multivitamins, therapeutics tablet PO SCH (07:38)
[2018-12-30] MEDS: lithium carbonate 150mg capsule PO SCH ×2 (07:39→19:30)
[2018-12-30] MEDS: DESMOPRESSIN ACETATE 0.1 MG PO SCH (07:39)
[2018-12-30] MEDS: acetaminophen 325mg tablet PO SCH ×2 (07:42→19:37)
[2018-12-30] MEDS: heparin, porcine 5000 units/ml vial SQ SCH ×2 (07:44→19:39)
[2018-12-30] MEDS: OLANZAPINE 5 MG TABLET PO SCH (07:44)
[2018-12-30] MEDS: mineral oil/petrolatum, white cream 113gm jar TP SCH (07:44)
[2018-12-30] MEDS: lactose-reduced food (Ensure Enlive) - 237ml bottle PO SCH ×3 (08:00→18:00)
[2018-12-30] MEDS ORDERED: DESMOPRESSIN ACETATE 0.1 MG TABLET PO SCH (08:00)
[2018-12-30 09:02] LABS: BASOPHILS # (AUTO) 0.1 X10'3 (0-0.2); BASOPHILS % (AUTO) 0.6 % (0-1); EOSINOPHILS # (AUTO) 0.4 X10'3 (0-0.9); EOSINOPHILS % (AUTO) 4.4 % (0-6); HEMOGLOBIN 12.9 g/dl (12.0-16.0); LYMPHOCYTES # (AUTO) 0.8 X10'3 (1.1-4.8); LYMPHOCYTES % (AUTO) 7.5 % (21-51); MEAN CORPUSCULAR HEMOGLOBIN 33.6 PG (27.0-31.0); MEAN CORPUSCULAR VOLUME 101.9 FL (78-98); MEAN PLATELET VOLUME 8.5 FL (7.4-10.4); MONOCYTES # (AUTO) 0.5 X10'3 (0-0.9); MONOCYTES % (AUTO) 4.6 % (2-12); NEUTROPHILS # (AUTO) 8.5 X10'3 (1.8-7.7); NEUTROPHILS % (AUTO) 82.9 % (42-75); PLATELET COUNT 254 X10'3 (140-440); RED BLOOD COUNT 3.82 X10'6 (4.20-5.60); RED CELL DISTRIBUTION WIDTH 13.9 % (11.5-14.5); WHITE BLOOD COUNT 10.2 X10'3 (4.5-11.0)
[2018-12-30] MEDS: budesonide 0.5mg/2ml UD nebule IH SCH ×2 (09:17→19:46)
[2018-12-30 11:00] VITALS: BP 121/42
[2018-12-30 15:00] VITALS: BP 99/66
--- NOTE | 2018-12-30 16:15 | NUR ---
PAGE TO KEN [id number] Torito, Do you wish for patient to be on tele monitor she has been off since yesterday. MAMTA Collins [id number] (111 character message out of a maximum of 240)
--- NOTE | 2018-12-30 16:16 | NUR ---
Dr Miles respond yes he wants pt to be on tele monitor
--- NOTE | 2018-12-30 16:16 | NUR ---
PAGE to Dr Miles Rm [id number] Torito, Do you wish for patient to be on tele monitor she has been off since yesterday. MAMTA Collins [id number]
[2018-12-30 18:00] VITALS: BP 120/69
--- NOTE | 2018-12-30 18:06 | NUR ---
Report given to MAMTA Walton all questions answered and patient is stable.
--- NOTE | 2018-12-30 18:07 | NUR ---
[place] documentation: I have reviewed and agree with interventions, assessments performed and documented by Karina OLEARY. [place] Medication Administration: For this medication-pass time frame,medications were reviewed, dispensed, administered and documented per hospital policy by Karina OLEARY.
--- NOTE | 2018-12-30 18:16 | NUR ---
Problems reprioritized. Patient report given, questions answered & plan of care reviewed with Samantha OLEARY. Patient stable at transfer of care.
--- NOTE | 2018-12-30 18:44 | NUR ---
Patient in room PCU 3028. I have received report from Regina OLEARY and Rogers RN and had the opportunity to ask questions and assume patient care. Checked on patient, she is resting, will continue to monitor.
[2018-12-30] MEDS: albuterol 2.5 MG/3 ML nebule NEB PRN (19:46)
[2018-12-30] MEDS: DESMOPRESSIN ACETATE 0.1 MG TABLET PO SCH (21:16)
[2018-12-30] MEDS: mirtazapine 15mg tablet PO SCH (21:18)
[2018-12-30] MEDS: quetiapine 100mg tablet PO SCH (21:18)
[2018-12-30] MEDS: traZODone 50mg tablet PO SCH (21:19)
[2018-12-30 23:00] VITALS: BP 97/52
[2018-12-31 03:00] VITALS: BP 89/48
--- NOTE | 2018-12-31 03:25 | NUR ---
Patient's 299 vitals showed BP of 89/48. Woke patient and had her drink a cup of water (around 200cc" Addendum: 12/31/18 at 0329 by Isabelle Tiwari RN 200 cc's). Retook BP 15 minutes later and her BP was 116/60 (89).
[2018-12-31 06:00] VITALS: BP 105/63
--- NOTE | 2018-12-31 06:21 | NUR ---
Patient in room PCU 3028. I have received report from MAMTA Walton and had the opportunity to ask questions and assume patient care. Patient awake and in no apparent distress on 1L NC. No new needs identified at this time. Call light and items of frequent use in reach of patient.
--- NOTE | 2018-12-31 06:23 | NUR ---
Problems reprioritized. Patient report given, questions answered & plan of care reviewed with Stacey OLEARY and Paramjit OLEARY.
--- NOTE | 2018-12-31 06:39 | NUR ---
Patient in room PCU 3028B. I have received report from MAMTA Hirsch and had the opportunity to ask questions and assume patient care.Pt was awake and resting comfortably. Last night pt was hypotensive (BP 98/43) which was immediately corrected. Will continue to monitor
[2018-12-31] MEDS: budesonide 0.5mg/2ml UD nebule IH SCH ×2 (08:38→20:48)
[2018-12-31] MEDS: gabapentin 400mg capsule PO SCH ×2 (08:41→19:54)
[2018-12-31] MEDS: lithium carbonate 150mg capsule PO SCH ×2 (08:42→19:55)
[2018-12-31] MEDS: lactobacillus rhamnosus 10,000 MMU CELLS/CAPSULE PO SCH ×2 (08:43→19:55)
[2018-12-31] MEDS: aspirin 81mg tablet.DR PO SCH (08:43)
[2018-12-31] MEDS: CITALOpram 10mg tablet PO SCH (08:43)
[2018-12-31] MEDS: pantoprazole 40mg Tablet.DR PO SCH (08:43)
[2018-12-31] MEDS: OLANZAPINE 5 MG TABLET PO SCH (08:43)
[2018-12-31] MEDS: docusate sod 250mg capsule PO SCH ×2 (08:45→19:54)
[2018-12-31] MEDS: multivitamins, therapeutics tablet PO SCH (08:45)
[2018-12-31] MEDS: benztropine 1mg tablet PO SCH ×2 (08:45→19:55)
[2018-12-31] MEDS: lamoTRIgine 25mg tablet PO SCH ×2 (08:45→19:55)
[2018-12-31] MEDS: acetaminophen 325mg tablet PO SCH ×2 (08:45→19:54)
[2018-12-31] MEDS: heparin, porcine 5000 units/ml vial SQ SCH ×2 (08:46→19:56)
[2018-12-31] MEDS: DESMOPRESSIN ACETATE 0.1 MG PO SCH (08:46)
[2018-12-31] MEDS: furosemide 20MG tablet PO SCH (08:50)
[2018-12-31] MEDS: lactose-reduced food (Ensure Enlive) - 237ml bottle PO SCH ×3 (08:56→18:27)
[2018-12-31] MEDS: mineral oil/petrolatum, white cream 113gm jar TP SCH (08:57)
--- NOTE | 2018-12-31 10:12 | NUR ---
Reassess BP after giving lasix this morning. BP is 116/55
[2018-12-31 11:00] VITALS: BP 104/58
--- NOTE | 2018-12-31 12:28 | NUR ---
Per PCT vital signs, patient oxygen saturation was 84% on 2.0L NC. Oxygen saturation was retaken and the saturation was 96% on 2.0 L NC. No adjustments needed to oxygen delivery. Will continue to monitor patient.
[2018-12-31 15:00] VITALS: BP 114/64
[2018-12-31] MEDS: polyethylene glycol 3350 17gm powd pack PO SCH (15:53)
[2018-12-31 18:00] VITALS: BP 126/75
--- NOTE | 2018-12-31 18:28 | NUR ---
Problems reprioritized. Patient report given, questions answered & plan of care reviewed with MAMTA Amnada. Patient resting comfortably at this time. Call light and items of frequent use in reach of patient.
--- NOTE | 2018-12-31 18:42 | NUR ---
Patient in room PCU 3028. I have received report from Stacey RN and MAMTA Yusuf and had the opportunity to ask questions and assume patient care.
[2018-12-31] MEDS: DESMOPRESSIN ACETATE 0.1 MG TABLET PO SCH (21:21)
[2018-12-31] MEDS: mirtazapine 15mg tablet PO SCH (21:21)
[2018-12-31] MEDS: traZODone 50mg tablet PO SCH (21:21)
[2018-12-31] MEDS: quetiapine 100mg tablet PO SCH (21:21)
[2018-12-31 22:00] VITALS: BP 104/56
[2019-01-01 02:00] VITALS: BP 118/58
[2019-01-01 06:00] VITALS: BP 125/60
--- NOTE | 2019-01-01 06:39 | NUR ---
Problems reprioritized. Patient report given, questions answered & plan of care reviewed with MAMTA Wallis.
[2019-01-01] MEDS: docusate sod 250mg capsule PO SCH ×2 (06:43→20:00)
[2019-01-01] MEDS: lactose-reduced food (Ensure Enlive) - 237ml bottle PO SCH ×3 (08:00→18:48)
[2019-01-01] MEDS: albuterol 2.5 MG/3 ML nebule NEB PRN (08:02)
[2019-01-01] MEDS: budesonide 0.5mg/2ml UD nebule IH SCH ×2 (08:02→22:21)
[2019-01-01] MEDS: DESMOPRESSIN ACETATE 0.1 MG TABLET PO SCH ×2 (09:20→21:43)
[2019-01-01] MEDS: heparin, porcine 5000 units/ml vial SQ SCH ×2 (09:20→21:44)
[2019-01-01] MEDS: OLANZAPINE 5 MG TABLET PO SCH (09:21)
[2019-01-01] MEDS: aspirin 81mg tablet.DR PO SCH (09:21)
[2019-01-01] MEDS: CITALOpram 10mg tablet PO SCH (09:21)
[2019-01-01] MEDS: lactobacillus rhamnosus 10,000 MMU CELLS/CAPSULE PO SCH ×2 (09:21→21:36)
[2019-01-01] MEDS: furosemide 20MG tablet PO SCH (09:21)
[2019-01-01] MEDS: lithium carbonate 150mg capsule PO SCH ×2 (09:21→21:38)
[2019-01-01] MEDS: acetaminophen 325mg tablet PO SCH ×2 (09:21→21:40)
[2019-01-01] MEDS: multivitamins, therapeutics tablet PO SCH (09:22)
[2019-01-01] MEDS: lamoTRIgine 25mg tablet PO SCH ×2 (09:22→21:38)
[2019-01-01] MEDS: benztropine 1mg tablet PO SCH ×2 (09:22→21:35)
[2019-01-01] MEDS: gabapentin 400mg capsule PO SCH ×2 (09:22→21:39)
[2019-01-01] MEDS: pantoprazole 40mg Tablet.DR PO SCH (09:30)
[2019-01-01] MEDS: mineral oil/petrolatum, white cream 113gm jar TP SCH (10:03)
[2019-01-01 11:00] VITALS: BP 99/52
[2019-01-01 15:15] VITALS: BP 112/69
[2019-01-01 18:00] VITALS: BP 125/60
--- NOTE | 2019-01-01 18:50 | NUR ---
Patient in room PCU 3028. I have received report from Kadi OLEARY and had the opportunity to ask questions and assume patient care.
--- NOTE | 2019-01-01 19:03 | NUR ---
Problems reprioritized. Patient report given, questions answered & plan of care reviewed with Ade OLEARY.
[2019-01-01] MEDS: traZODone 50mg tablet PO SCH (21:41)
[2019-01-01] MEDS: mirtazapine 15mg tablet PO SCH (21:41)
[2019-01-01] MEDS: quetiapine 100mg tablet PO SCH (21:41)
[2019-01-01 23:00] VITALS: BP 113/69
--- NOTE | 2019-01-02 02:00 | NUR ---
Problems reprioritized. Patient report given, questions answered & plan of care reviewed with Pat RN.
--- NOTE | 2019-01-02 06:51 | NUR ---
Patient in room ANDRE 359. I have received report from Pat RN and had the opportunity to ask questions and assume patient care.
[2019-01-02 07:00] VITALS: BP 122/64
[2019-01-02 07:24] LABS: ALBUMIN 3.4 G/DL (3.4-5.0); BLOOD UREA NITROGEN 49 MG/DL (7-18); BUN/CREATININE RATIO 28.7 (6.6-38.0); CHLORIDE 105 MMOL/L (99-107); CREATININE 1.71 MG/DL (0.40-0.90); GLUCOSE 103 MG/DL (70-104); POTASSIUM 4.2 MMOL/L (3.5-5.1); eGFR 30 ML/MIN
[2019-01-02 07:34] LABS: ANION GAP 2 (8-16); SODIUM 142 MMOL/L (135-145); TOTAL CARBON DIOXIDE 35.5 MMOL/L (24-32)
[2019-01-02 07:37] LABS: CALCIUM 12.1 MG/DL (8.5-10.1)
[2019-01-02 08:00] VITALS: BP 125/52
[2019-01-02] MEDS: gabapentin 400mg capsule PO SCH (08:10)
[2019-01-02] MEDS: lamoTRIgine 25mg tablet PO SCH ×2 (08:10→19:54)
[2019-01-02] MEDS: lactobacillus rhamnosus 10,000 MMU CELLS/CAPSULE PO SCH ×2 (08:10→19:56)
[2019-01-02] MEDS: aspirin 81mg tablet.DR PO SCH (08:10)
[2019-01-02] MEDS: furosemide 20MG tablet PO SCH (08:11)
[2019-01-02] MEDS: docusate sod 250mg capsule PO SCH ×2 (08:11→19:54)
[2019-01-02] MEDS: acetaminophen 325mg tablet PO SCH ×2 (08:11→19:57)
[2019-01-02] MEDS: pantoprazole 40mg Tablet.DR PO SCH (08:11)
[2019-01-02] MEDS: multivitamins, therapeutics tablet PO SCH (08:11)
[2019-01-02] MEDS: OLANZAPINE 5 MG TABLET PO SCH (08:11)
[2019-01-02] MEDS: CITALOpram 10mg tablet PO SCH (08:11)
[2019-01-02] MEDS: benztropine 1mg tablet PO SCH ×2 (08:12→19:54)
[2019-01-02] MEDS: lactose-reduced food (Ensure Enlive) - 237ml bottle PO SCH ×3 (08:18→18:52)
[2019-01-02] MEDS: mineral oil/petrolatum, white cream 113gm jar TP SCH (08:28)
[2019-01-02] MEDS: heparin, porcine 5000 units/ml vial SQ SCH ×3 (08:28→20:00)
[2019-01-02] MEDS: budesonide 0.5mg/2ml UD nebule IH SCH ×2 (10:18→20:46)
[2019-01-02] MEDS: lithium carbonate 150mg capsule PO SCH ×2 (10:41→19:55)
[2019-01-02] MEDS: DESMOPRESSIN ACETATE 0.1 MG TABLET PO SCH ×2 (10:42→22:42)
--- NOTE | 2019-01-02 10:45 | NUR ---
Reassessment: Pt now A/O x 1 per physical assessment. Pt s/p BSS on 12/29 with SUCTION WORKER recs continue pureed food with thin liquids. Documented decline in PO intake averaging 0-25%, likely r/t dementia. Pt continues with 100% PO intake of Ensure Enlive TID providing 1050 kcal and 60 g protein meeting 86% estimated energy needs and 100% estimated protein needs just with ONS intake alone. Pt awaiting accepting facility for discharge per MD notes. LBM 01/01. Will continue to follow. Recommendations: 1) Continue lactose free pureed diet with thin liquids per SUCTION WORKER recs 2) Ensure Enlive TID 3) Routine bowel care; additional per MD for constipation 4) Wt per rx Addendum: 01/02/19 at [address] Amended: Links added.
[2019-01-02] MEDS: normal saline 1000ml 1,000 ML IV SCH ×2 (15:27→23:51)
[2019-01-02] MEDS: polyethylene glycol 3350 17gm powd pack PO SCH (17:00)
--- NOTE | 2019-01-02 18:51 | NUR ---
Patient seen by Dr horowitz. All cares continue. Report given to Simona OLEARY
[2019-01-02 19:00] VITALS: BP 109/69
[2019-01-02] MEDS: gabapentin 300mg capsule PO SCH (19:56)
[2019-01-02] MEDS: mirtazapine 15mg tablet PO SCH (22:42)
[2019-01-02] MEDS: quetiapine 100mg tablet PO SCH (22:42)
[2019-01-02] MEDS: traZODone 50mg tablet PO SCH (22:43)
--- NOTE | 2019-01-02 22:50 | NUR ---
Pt bladder scanned and is retaining approx 600ml. She has the "purewick" which has not had any out put thus far. Pt has not been incontinent. Dr. Bales was notified and we are to bladder scan orders and straight cath orders were placed. Addendum: 01/02/19 at 2314 by Simona Wall RN Amended: Links added.
[2019-01-03] VITALS: BP 132/57
[2019-01-03 06:21] LABS: ALBUMIN 2.8 G/DL (3.4-5.0); ANION GAP 0 (8-16); BLOOD UREA NITROGEN 42 MG/DL (7-18); BUN/CREATININE RATIO 27.8 (6.6-38.0); CALCIUM 10.7 MG/DL (8.5-10.1); CHLORIDE 108 MMOL/L (99-107); CREATININE 1.51 MG/DL (0.40-0.90); GLUCOSE 91 MG/DL (70-104); POTASSIUM 4.2 MMOL/L (3.5-5.1); SODIUM 142 MMOL/L (135-145); TOTAL CARBON DIOXIDE 34.3 MMOL/L (24-32); eGFR 35 ML/MIN
[2019-01-03 07:00] VITALS: BP 112/64
--- NOTE | 2019-01-03 07:24 | NUR ---
Patient in room ANDRE 359. I have received report from KADE OLEARY and had the opportunity to ask questions and assume patient care.
[2019-01-03] MEDS: CITALOpram 10mg tablet PO SCH (09:59)
[2019-01-03] MEDS: pantoprazole 40mg Tablet.DR PO SCH (09:59)
[2019-01-03] MEDS: lithium carbonate 150mg capsule PO SCH ×2 (09:59→19:44)
[2019-01-03] MEDS: lamoTRIgine 25mg tablet PO SCH ×2 (10:00→19:47)
[2019-01-03] MEDS: gabapentin 300mg capsule PO SCH ×2 (10:00→19:46)
[2019-01-03] MEDS: acetaminophen 325mg tablet PO SCH ×2 (10:01→19:44)
[2019-01-03] MEDS: docusate sod 250mg capsule PO SCH ×2 (10:01→19:44)
[2019-01-03] MEDS: benztropine 1mg tablet PO SCH ×2 (10:02→19:49)
[2019-01-03] MEDS: aspirin 81mg tablet.DR PO SCH (10:02)
[2019-01-03] MEDS: furosemide 20MG tablet PO SCH (10:02)
[2019-01-03] MEDS: lactobacillus rhamnosus 10,000 MMU CELLS/CAPSULE PO SCH ×2 (10:03→19:52)
[2019-01-03] MEDS: OLANZAPINE 5 MG TABLET PO SCH (10:03)
[2019-01-03] MEDS: multivitamins, therapeutics tablet PO SCH (10:03)
[2019-01-03] MEDS: DESMOPRESSIN ACETATE 0.1 MG TABLET PO SCH ×2 (10:04→22:04)
[2019-01-03] MEDS: heparin, porcine 5000 units/ml vial SQ SCH ×2 (10:05→20:01)
[2019-01-03] MEDS: mineral oil/petrolatum, white cream 113gm jar TP SCH (10:05)
[2019-01-03] MEDS: lactose-reduced food (Ensure Enlive) - 237ml bottle PO SCH ×4 (10:06→19:52)
[2019-01-03] MEDS: normal saline 1000ml 1,000 ML IV SCH ×3 (10:19→23:10)
[2019-01-03 11:00] VITALS: BP 122/54
[2019-01-03] MEDS: budesonide 0.5mg/2ml UD nebule IH SCH ×2 (11:25→21:08)
--- NOTE | 2019-01-03 18:30 | NUR ---
Problems reprioritized. Patient report given, questions answered & plan of care reviewed with Joann OLEARY.
--- NOTE | 2019-01-03 18:40 | NUR ---
Patient in room ANDRE 359. I have received report from Santos OLEARY and had the opportunity to ask questions and assume patient care.
[2019-01-03 19:00] VITALS: BP 156/86
[2019-01-03] MEDS: albuterol 2.5 MG/3 ML nebule NEB PRN (21:08)
[2019-01-03] MEDS: quetiapine 100mg tablet PO SCH (22:02)
[2019-01-03] MEDS: traZODone 50mg tablet PO SCH (22:02)
[2019-01-03] MEDS: mirtazapine 15mg tablet PO SCH (22:03)
[2019-01-04] VITALS: BP 104/45
[2019-01-04] MEDS: normal saline 1000ml 1,000 ML IV SCH ×3 (01:16→17:05)
--- NOTE | 2019-01-04 02:00 | NUR ---
Since earlier melanie care and repositioning of the wick. patient had been having good urine output. Cannister was emptied around 0015 for a total of 800 cc yellow urine. At around 0200, noticed not much had suctioned (less that 50cc). Patient was wet again, and so melanie care given. Pt had loose BM with repositioning. Bladder scan at this time revealed total of 313ml. Per MD orders, tried to straight cath as over 250cc in bladder. After 2 unsuccessful attempts, patient was becoming agitated. At this time informed medical charge entry specialist, and decision made to not try again. Wick reinserted for urine collection. Addendum: 01/04/19 at 0337 by Joann Copeland RN Amended: Links added.
[2019-01-04] MEDS ORDERED: LORazepam 2 mg/ml vial IV ONE (04:45)
[2019-01-04] MEDS ORDERED: oxyCODONE IR 5mg (immed. release) tablet PO ONE (04:45)
--- NOTE | 2019-01-04 04:45 | NUR ---
Bladder scAN AT 0430 revealed 580cc. order to give 1 x oxy ir pain medicine and IV ativan to help patient relax enough to insert F/C
--- NOTE | 2019-01-04 05:17 | NUR ---
Put orders in and went into room to administer the oxy ir and the ativan and notice that patient had 450 in the cannister from the wick. Bladder scanned pat. PVR = 106. Patient denied having any pain, saying that it was now gone. Wasted the oxy IR and Ativan and did not place the F/c.
--- NOTE | 2019-01-04 06:21 | NUR ---
Problems reprioritized. Patient report given, questions answered & plan of care reviewed with Kallie OLEARY.
--- NOTE | 2019-01-04 06:52 | NUR ---
Patient in room ANDRE 359. I have received report from MAMTA JIMENEZ and had the opportunity to ask questions and assume patient care.
[2019-01-04 07:00] VITALS: BP 106/45
[2019-01-04] MEDS: pantoprazole 40mg Tablet.DR PO SCH (07:30)
[2019-01-04] MEDS: furosemide 20MG tablet PO SCH (08:17)
[2019-01-04] MEDS: gabapentin 300mg capsule PO SCH ×2 (08:17→19:55)
[2019-01-04] MEDS: lactobacillus rhamnosus 10,000 MMU CELLS/CAPSULE PO SCH ×2 (08:17→19:55)
[2019-01-04] MEDS: CITALOpram 10mg tablet PO SCH (08:18)
[2019-01-04] MEDS: lithium carbonate 150mg capsule PO SCH ×2 (08:18→19:54)
[2019-01-04] MEDS: acetaminophen 325mg tablet PO SCH ×2 (08:18→19:54)
[2019-01-04] MEDS: docusate sod 250mg capsule PO SCH ×2 (08:18→20:00)
[2019-01-04] MEDS: aspirin 81mg tablet.DR PO SCH (08:18)
[2019-01-04] MEDS: OLANZAPINE 5 MG TABLET PO SCH (08:18)
[2019-01-04] MEDS: benztropine 1mg tablet PO SCH ×2 (08:18→19:53)
[2019-01-04] MEDS: multivitamins, therapeutics tablet PO SCH (08:18)
[2019-01-04] MEDS: lamoTRIgine 25mg tablet PO SCH ×2 (08:18→19:53)
[2019-01-04] MEDS: DESMOPRESSIN ACETATE 0.1 MG TABLET PO SCH ×2 (08:19→22:07)
[2019-01-04] MEDS: mineral oil/petrolatum, white cream 113gm jar TP SCH (08:19)
[2019-01-04] MEDS: heparin, porcine 5000 units/ml vial SQ SCH ×2 (08:19→20:05)
[2019-01-04] MEDS: lactose-reduced food (Ensure Enlive) - 237ml bottle PO SCH ×3 (08:35→17:58)
[2019-01-04] MEDS: budesonide 0.5mg/2ml UD nebule IH SCH ×2 (08:50→20:34)
[2019-01-04 08:56] LABS: ALBUMIN 2.8 G/DL (3.4-5.0); ANION GAP 1 (8-16); BLOOD UREA NITROGEN 27 MG/DL (7-18); BUN/CREATININE RATIO 19.3 (6.6-38.0); CALCIUM 10.4 MG/DL (8.5-10.1); CHLORIDE 114 MMOL/L (99-107); GLUCOSE 82 MG/DL (70-104); POTASSIUM 4.4 MMOL/L (3.5-5.1); SODIUM 145 MMOL/L (135-145); TOTAL CARBON DIOXIDE 30.1 MMOL/L (24-32); eGFR 38 ML/MIN
--- NOTE | 2019-01-04 12:06 | NUR ---
Patient is pleasantly confused. She did have episode of yelling out, "I need help! I want to go home. I need my cat." Went to check on patient and patient easily reoriented. She appears to be comfortable in bed with no complaints at this time. Eyes are closed with respirations even and unlabored.
[2019-01-04 12:47] VITALS: BP 112/52
[2019-01-04] MEDS: polyethylene glycol 3350 17gm powd pack PO SCH (16:20)
--- NOTE | 2019-01-04 18:13 | NUR ---
Problems reprioritized. Patient report given, questions answered & plan of care reviewed with MAMTA David.
--- NOTE | 2019-01-04 18:30 | NUR ---
Patient in room ANDRE 359. I have received report from Kallie OLEARY and had the opportunity to ask questions and assume patient care.
[2019-01-04 19:00] VITALS: BP 116/57
[2019-01-04] MEDS: traZODone 50mg tablet PO SCH (22:08)
[2019-01-04] MEDS: quetiapine 100mg tablet PO SCH (22:08)
[2019-01-04] MEDS: mirtazapine 15mg tablet PO SCH (22:08)
[2019-01-05] VITALS: BP 112/48
[2019-01-05] MEDS: normal saline 1000ml 1,000 ML IV SCH ×2 (01:10→20:45)
--- NOTE | 2019-01-05 06:11 | NUR ---
Problems reprioritized. Patient report given, questions answered & plan of care reviewed with Roxie OLEARY.
[2019-01-05 06:29] LABS: ALBUMIN 2.7 G/DL (3.4-5.0); ANION GAP 5 (8-16); BLOOD UREA NITROGEN 24 MG/DL (7-18); BUN/CREATININE RATIO 19.7 (6.6-38.0); CALCIUM 10.5 MG/DL (8.5-10.1); CHLORIDE 114 MMOL/L (99-107); CREATININE 1.22 MG/DL (0.40-0.90); GLUCOSE 79 MG/DL (70-104); POTASSIUM 4.3 MMOL/L (3.5-5.1); SODIUM 147 MMOL/L (135-145); TOTAL CARBON DIOXIDE 27.8 MMOL/L (24-32); eGFR 45 ML/MIN
[2019-01-05 07:08] VITALS: BP 122/72
[2019-01-05] MEDS: lactose-reduced food (Ensure Enlive) - 237ml bottle PO SCH ×3 (08:00→18:16)
[2019-01-05] MEDS: budesonide 0.5mg/2ml UD nebule IH SCH ×2 (08:31→20:23)
[2019-01-05] MEDS: furosemide 20MG tablet PO SCH (09:00)
[2019-01-05] MEDS: gabapentin 300mg capsule PO SCH ×2 (09:12→20:48)
[2019-01-05] MEDS: OLANZAPINE 5 MG TABLET PO SCH (09:12)
[2019-01-05] MEDS: multivitamins, therapeutics tablet PO SCH (09:12)
[2019-01-05] MEDS: pantoprazole 40mg Tablet.DR PO SCH (09:12)
[2019-01-05] MEDS: benztropine 1mg tablet PO SCH ×2 (09:13→20:49)
[2019-01-05] MEDS: docusate sod 250mg capsule PO SCH ×4 (09:13→20:49)
[2019-01-05] MEDS: CITALOpram 10mg tablet PO SCH (09:13)
[2019-01-05] MEDS: lactobacillus rhamnosus 10,000 MMU CELLS/CAPSULE PO SCH ×2 (09:13→20:48)
[2019-01-05] MEDS: DESMOPRESSIN ACETATE 0.1 MG TABLET PO SCH ×2 (09:14→20:54)
[2019-01-05] MEDS: aspirin 81mg tablet.DR PO SCH (09:14)
[2019-01-05] MEDS: lithium carbonate 150mg capsule PO SCH ×2 (09:15→20:48)
[2019-01-05] MEDS: acetaminophen 325mg tablet PO SCH ×2 (09:15→20:51)
[2019-01-05] MEDS: lamoTRIgine 25mg tablet PO SCH ×2 (09:15→20:49)
[2019-01-05] MEDS: mineral oil/petrolatum, white cream 113gm jar TP SCH (09:16)
[2019-01-05] MEDS: heparin, porcine 5000 units/ml vial SQ SCH ×2 (09:16→20:55)
[2019-01-05 11:00] VITALS: BP 147/81
--- NOTE | 2019-01-05 17:40 | NUR ---
Up to bsc, hand held assist.
--- NOTE | 2019-01-05 18:15 | NUR ---
Received report from MAMTA Faustin. Assumed care with MAMTA Alexandra. Patient is awake and alert on room air, in no apparent distress. Sitting up having meal. Call light and items of frequent use within reach. Will continue to monitor.
[2019-01-05 20:00] VITALS: BP 123/64
[2019-01-05] MEDS: mirtazapine 15mg tablet PO SCH (20:50)
[2019-01-05] MEDS: quetiapine 100mg tablet PO SCH (20:51)
[2019-01-05] MEDS: traZODone 50mg tablet PO SCH (20:51)
--- NOTE | 2019-01-05 21:35 | NUR ---
Patient turned and repositioned upon command while changing linens.
[2019-01-06] VITALS: BP 100/45
--- NOTE | 2019-01-06 06:11 | NUR ---
I have reviewed and agree with all interventions, assessments performed and documented by MAMTA Alexandra. Reported off to MAMTA Ibarra. Patient resting comfortably.
--- NOTE | 2019-01-06 06:12 | NUR ---
Patient in room ANDRE 359. I have received report from Ibrahima RN and Leydi RN and had the opportunity to ask questions and assume patient care. Patient resting comfortably on room air and in no apparent distress at this time.
--- NOTE | 2019-01-06 06:12 | NUR ---
Problems reprioritized. Patient report given, questions answered & plan of care reviewed with MAMTA Ibarra.
[2019-01-06 06:17] LABS: ALBUMIN 2.9 G/DL (3.4-5.0); ANION GAP 4 (8-16); BLOOD UREA NITROGEN 26 MG/DL (7-18); CALCIUM 11.4 MG/DL (8.5-10.1); CHLORIDE 112 MMOL/L (99-107); CREATININE 1.37 MG/DL (0.40-0.90); GLUCOSE 90 MG/DL (70-104); POTASSIUM 4.3 MMOL/L (3.5-5.1); SODIUM 147 MMOL/L (135-145); TOTAL CARBON DIOXIDE 30.8 MMOL/L (24-32); eGFR 39 ML/MIN
[2019-01-06 07:28] VITALS: BP 108/68
[2019-01-06] MEDS: pantoprazole 40mg Tablet.DR PO SCH (08:04)
[2019-01-06] MEDS: benztropine 1mg tablet PO SCH ×2 (08:04→20:48)
[2019-01-06] MEDS: CITALOpram 10mg tablet PO SCH (08:04)
[2019-01-06] MEDS: acetaminophen 325mg tablet PO SCH ×2 (08:05→20:50)
[2019-01-06] MEDS: lactose-reduced food (Ensure Enlive) - 237ml bottle PO SCH ×3 (08:05→18:37)
[2019-01-06] MEDS: aspirin 81mg tablet.DR PO SCH (08:05)
[2019-01-06] MEDS: lactobacillus rhamnosus 10,000 MMU CELLS/CAPSULE PO SCH ×2 (08:05→20:49)
[2019-01-06] MEDS: DESMOPRESSIN ACETATE 0.1 MG TABLET PO SCH ×2 (08:05→20:53)
[2019-01-06] MEDS: furosemide 20MG tablet PO SCH (08:06)
[2019-01-06] MEDS: gabapentin 300mg capsule PO SCH ×2 (08:06→20:49)
[2019-01-06] MEDS: lithium carbonate 150mg capsule PO SCH ×2 (08:06→20:48)
[2019-01-06] MEDS: OLANZAPINE 5 MG TABLET PO SCH (08:06)
[2019-01-06] MEDS: lamoTRIgine 25mg tablet PO SCH ×2 (08:06→20:49)
[2019-01-06] MEDS: multivitamins, therapeutics tablet PO SCH (08:06)
[2019-01-06] MEDS: heparin, porcine 5000 units/ml vial SQ SCH ×2 (08:07→20:50)
[2019-01-06] MEDS: mineral oil/petrolatum, white cream 113gm jar TP SCH (08:14)
--- NOTE | 2019-01-06 08:20 | NUR ---
RECOMMEND: 1. Daily bathing with no rinse skin cleanser. 2. Cream/Lotion to be applied to skin after bathing. 3. Catarina care Q shift and prn soiling followed by with Barrier Cream. 4. Turn patient Q 1-2 hrs and reposition with pillows. 5. Float heels to offload pressure. Addendum: 01/06/19 at 0821 by Helga Davidson RN Amended: Links added.
[2019-01-06] MEDS: budesonide 0.5mg/2ml UD nebule IH SCH ×2 (09:00→19:36)
--- NOTE | 2019-01-06 09:00 | NUR ---
In with PCT to change patient bedding, provide skin care, and wipe patient. Patient very cooperative and able to turn self in both directions and also hold self in that position. Patient also able to sit self up in bed. Patient can be anxious and confused at times but is fairly able to be reoriented.
--- NOTE | 2019-01-06 10:34 | NUR ---
Reassessment: Noted that patient with wt loss since admit using bed scale. Pt continues with fluctuating PO intake with recent improvement with average 50% of meals and 100% PO intake of Ensure Enlive likely meeting nutrient needs. [facility] 01/05. Pt continues awaiting placement. Will continue to follow. Recommendations: 1) Continue lactose free pureed diet with thin liquids per PHP ARCHITECT recs 2) Ensure Enlive TID 3) Routine bowel care; additional per MD for constipation 4) Wt per rx Addendum: 01/06/19 at [address] Amended: Links added.
[2019-01-06 11:00] VITALS: BP 108/63
[2019-01-06] MEDS: polyethylene glycol 3350 17gm powd pack PO SCH (16:20)
--- NOTE | 2019-01-06 16:30 | NUR ---
Patient has tolerated being on room air for all of AM shift. Patient saturations stay within 90%-93% on room air. Patient in no apparent distress and has not complained of any shortness of breath. Will continue to monitor patient.
--- NOTE | 2019-01-06 18:37 | NUR ---
Problems reprioritized. Patient report given, questions answered & plan of care reviewed with MAMTA Roy.
--- NOTE | 2019-01-06 18:38 | NUR ---
Patient in room ANDRE 359. I have received report from MAMTA Ibarra and had the opportunity to ask questions and assume patient care. Addendum: 01/06/19 at 1838 by Maribel Dunlap RN Amended: Links added.
[2019-01-06] MEDS: albuterol 2.5 MG/3 ML nebule NEB PRN (19:36)
[2019-01-06 20:00] VITALS: BP 129/58
[2019-01-06] MEDS: quetiapine 100mg tablet PO SCH (20:48)
[2019-01-06] MEDS: traZODone 50mg tablet PO SCH (20:48)
[2019-01-06] MEDS: mirtazapine 15mg tablet PO SCH (20:49)
[2019-01-07] MEDS: normal saline 1000ml 1,000 ML IV SCH ×2 (04:02→17:03)
--- NOTE | 2019-01-07 06:18 | NUR ---
Patient in room ANDRE 359. I have received report from MAMTA Roy and had the opportunity to ask questions and assume patient care.
--- NOTE | 2019-01-07 06:19 | NUR ---
pt had been urinating in large amount and incontinent Addendum: 01/07/19 at 0620 by Maribel Dunlap RN Amended: Links added.
--- NOTE | 2019-01-07 06:19 | NUR ---
Problems reprioritized. Patient report given, questions answered & plan of care reviewed with MAMTA Ibarra.. Addendum: 01/07/19 at 0619 by Maribel Dunlap RN Amended: Links added.
[2019-01-07 07:00] VITALS: BP 106/50
[2019-01-07] MEDS: lactose-reduced food (Ensure Enlive) - 237ml bottle PO SCH ×3 (08:00→18:34)
[2019-01-07] MEDS: mineral oil/petrolatum, white cream 113gm jar TP SCH (08:00)
[2019-01-07] MEDS: pantoprazole 40mg Tablet.DR PO SCH (09:14)
[2019-01-07] MEDS: benztropine 1mg tablet PO SCH ×2 (09:14→20:10)
[2019-01-07] MEDS: CITALOpram 10mg tablet PO SCH (09:14)
[2019-01-07] MEDS: DESMOPRESSIN ACETATE 0.1 MG TABLET PO SCH ×2 (09:15→20:09)
[2019-01-07] MEDS: docusate sod 250mg capsule PO SCH ×2 (09:15→20:11)
[2019-01-07] MEDS: aspirin 81mg tablet.DR PO SCH (09:16)
[2019-01-07] MEDS: lamoTRIgine 25mg tablet PO SCH ×2 (09:16→20:12)
[2019-01-07] MEDS: lithium carbonate 150mg capsule PO SCH ×2 (09:17→20:11)
[2019-01-07] MEDS: furosemide 20MG tablet PO SCH (09:17)
[2019-01-07] MEDS: gabapentin 300mg capsule PO SCH ×2 (09:17→20:11)
[2019-01-07] MEDS: OLANZAPINE 5 MG TABLET PO SCH (09:18)
[2019-01-07] MEDS: multivitamins, therapeutics tablet PO SCH (09:18)
[2019-01-07] MEDS: acetaminophen 325mg tablet PO SCH ×2 (09:18→20:00)
[2019-01-07] MEDS: heparin, porcine 5000 units/ml vial SQ SCH ×2 (09:19→20:00)
[2019-01-07] MEDS: lactobacillus rhamnosus 10,000 MMU CELLS/CAPSULE PO SCH ×2 (09:21→20:09)
[2019-01-07] MEDS: budesonide 0.5mg/2ml UD nebule IH SCH ×2 (10:29→20:45)
[2019-01-07 11:00] VITALS: BP 120/62
[2019-01-07 11:23] LABS: D-DIMER 0.39 MG/L FEU (0-0.50)
[2019-01-07 16:20] VITALS: BP 104/61
--- NOTE | 2019-01-07 17:00 | NUR ---
Patient moved from bed to chair with stand by assistance. Patient moved back from chair to bed one hour later. Patient steady. Patient also on room air all day shift and saturation remains stable between 91%-95%.
--- NOTE | 2019-01-07 18:20 | NUR ---
Patient in room ANDRE 359. I have received report from Stacey OLEARY and had the opportunity to ask questions and assume patient care.
--- NOTE | 2019-01-07 18:23 | NUR ---
Problems reprioritized. Patient report given, questions answered & plan of care reviewed with MAMTA Truong.
[2019-01-07 20:00] VITALS: BP 130/72
[2019-01-07] MEDS: traZODone 50mg tablet PO SCH (20:09)
[2019-01-07] MEDS: quetiapine 100mg tablet PO SCH (20:09)
[2019-01-07] MEDS: mirtazapine 15mg tablet PO SCH (20:11)
[2019-01-07] MEDS: albuterol 2.5 MG/3 ML nebule NEB PRN (20:46)
[2019-01-08] VITALS: BP 139/61
--- NOTE | 2019-01-08 05:50 | NUR ---
Patient tolerated room air during the power and recovery shift engineer. 02sat remained 92%+. Denies any shortness of breath.
--- NOTE | 2019-01-08 06:21 | NUR ---
Problems reprioritized. Patient report given, questions answered & plan of care reviewed with Bobbi OLEARY.
[2019-01-08 07:00] VITALS: BP 107/60
--- NOTE | 2019-01-08 07:18 | NUR ---
Patient in room ANDRE 359. I have received report from Alexi OLEARY and had the opportunity to ask questions and assume patient care.
[2019-01-08] MEDS: acetaminophen 325mg tablet PO SCH ×2 (08:25→21:07)
[2019-01-08] MEDS: docusate sod 250mg capsule PO SCH ×2 (08:25→21:06)
[2019-01-08] MEDS: benztropine 1mg tablet PO SCH (08:25)
[2019-01-08] MEDS: lamoTRIgine 25mg tablet PO SCH ×2 (08:26→21:07)
[2019-01-08] MEDS: lactobacillus rhamnosus 10,000 MMU CELLS/CAPSULE PO SCH ×2 (08:26→21:07)
[2019-01-08] MEDS: lithium carbonate 150mg capsule PO SCH ×2 (08:26→21:06)
[2019-01-08] MEDS: pantoprazole 40mg Tablet.DR PO SCH (08:26)
[2019-01-08] MEDS: aspirin 81mg tablet.DR PO SCH (08:26)
[2019-01-08] MEDS: furosemide 20MG tablet PO SCH (08:26)
[2019-01-08] MEDS: gabapentin 300mg capsule PO SCH ×2 (08:26→21:07)
[2019-01-08] MEDS: lactose-reduced food (Ensure Enlive) - 237ml bottle PO SCH ×3 (08:27→18:09)
[2019-01-08] MEDS: DESMOPRESSIN ACETATE 0.1 MG TABLET PO SCH ×2 (08:27→21:06)
[2019-01-08] MEDS: CITALOpram 10mg tablet PO SCH (08:27)
[2019-01-08] MEDS: OLANZAPINE 5 MG TABLET PO SCH (08:27)
[2019-01-08] MEDS: heparin, porcine 5000 units/ml vial SQ SCH (08:34)
[2019-01-08] MEDS: mineral oil/petrolatum, white cream 113gm jar TP SCH (08:34)
[2019-01-08] MEDS: multivitamins, therapeutics tablet PO SCH (08:39)
[2019-01-08] MEDS: budesonide 0.5mg/2ml UD nebule IH SCH ×2 (09:34→20:42)
[2019-01-08 11:00] VITALS: BP 128/62
--- NOTE | 2019-01-08 11:10 | NUR ---
patient remains on Room air. o2 sats 92%. patient transferred to chair , with assistance of one . sitting in chair at time of report.
[2019-01-08] MEDS: polyethylene glycol 3350 17gm powd pack PO SCH (16:20)
--- NOTE | 2019-01-08 18:10 | NUR ---
Patient in room ANDRE 359. I have received report from Bobbi OLEARY and had the opportunity to ask questions and assume patient care.
--- NOTE | 2019-01-08 18:40 | NUR ---
Problems reprioritized. Patient report given, questions answered & plan of care reviewed with Alexi OLEARY.
[2019-01-08 20:00] VITALS: BP 151/71
[2019-01-08] MEDS: albuterol 2.5 MG/3 ML nebule NEB PRN (20:42)
[2019-01-08] MEDS: traZODone 50mg tablet PO SCH (21:07)
[2019-01-08] MEDS: quetiapine 100mg tablet PO SCH (21:07)
[2019-01-08] MEDS: mirtazapine 15mg tablet PO SCH (21:08)
[2019-01-09] VITALS: BP 125/85
[2019-01-09 05:56] LABS: BASOPHILS % (AUTO) 0.3 % (0-1); EOSINOPHILS # (AUTO) 0.5 X10'3 (0-0.9); EOSINOPHILS % (AUTO) 5.7 % (0-6); HEMATOCRIT 32.9 % (35.0-45.0); HEMOGLOBIN 11.4 g/dl (12.0-16.0); LYMPHOCYTES # (AUTO) 0.9 X10'3 (1.1-4.8); LYMPHOCYTES % (AUTO) 10.7 % (21-51); MEAN CORPUSCULAR HEMOGLOBIN 34.9 PG (27.0-31.0); MEAN CORPUSCULAR HGB CONC 34.6 g/dL (33.0-36.5); MEAN CORPUSCULAR VOLUME 100.8 FL (78-98); MEAN PLATELET VOLUME 8.8 FL (7.4-10.4); MONOCYTES # (AUTO) 0.5 X10'3 (0-0.9); MONOCYTES % (AUTO) 6.1 % (2-12); NEUTROPHILS # (AUTO) 6.5 X10'3 (1.8-7.7); NEUTROPHILS % (AUTO) 77.2 % (42-75); PLATELET COUNT 172 X10'3 (140-440); RED BLOOD COUNT 3.26 X10'6 (4.20-5.60); RED CELL DISTRIBUTION WIDTH 14.4 % (11.5-14.5); WHITE BLOOD COUNT 8.4 X10'3 (4.5-11.0)
--- NOTE | 2019-01-09 06:22 | NUR ---
Problems reprioritized. Patient report given, questions answered & plan of care reviewed with Bobbi OLEARY.
--- NOTE | 2019-01-09 06:22 | NUR ---
Agree with charting and care observed by Alexi OLEARY.
[2019-01-09 06:30] LABS: ALANINE AMINOTRANSFERASE 56 U/L (12-78); ALBUMIN/GLOBULIN RATIO 0.9 (1.1-1.5); ALKALINE PHOSPHATASE 123 IU/L (46-116); ANION GAP 6 (8-16); ASPARTATE AMINO TRANSFERASE 21 U/L (10-37); BILIRUBIN,TOTAL 0.5 MG/DL (0.1-1.0); BLOOD UREA NITROGEN 33 MG/DL (7-18); BUN/CREATININE RATIO 22.1 (6.6-38.0); CALCIUM 10.8 MG/DL (8.5-10.1); CHLORIDE 103 MMOL/L (99-107); CREATININE 1.49 MG/DL (0.40-0.90); GLUCOSE 91 MG/DL (70-104); POTASSIUM 4.4 MMOL/L (3.5-5.1); SODIUM 137 MMOL/L (135-145); TOTAL PROTEIN 6.2 G/DL (6.4-8.2); eGFR 35 ML/MIN
--- NOTE | 2019-01-09 06:49 | NUR ---
Patient in room [facility]RE 359. I have received report from MARK OLEARY and had the opportunity to ask questions and assume patient care.
[2019-01-09] MEDS: albuterol 2.5 MG/3 ML nebule NEB PRN ×2 (06:52→19:52)
[2019-01-09] MEDS: budesonide 0.5mg/2ml UD nebule IH SCH ×2 (06:52→19:52)
[2019-01-09 08:00] VITALS: BP 118/58
[2019-01-09] MEDS: acetaminophen 325mg tablet PO SCH ×2 (08:51→20:24)
[2019-01-09] MEDS: aspirin 81mg tablet.DR PO SCH (08:51)
[2019-01-09] MEDS: gabapentin 300mg capsule PO SCH ×2 (08:51→20:23)
[2019-01-09] MEDS: furosemide 20MG tablet PO SCH (08:51)
[2019-01-09] MEDS: multivitamins, therapeutics tablet PO SCH (08:51)
[2019-01-09] MEDS: lamoTRIgine 25mg tablet PO SCH ×2 (08:51→20:26)
[2019-01-09] MEDS: lactobacillus rhamnosus 10,000 MMU CELLS/CAPSULE PO SCH ×2 (08:51→20:25)
[2019-01-09] MEDS: docusate sod 250mg capsule PO SCH ×2 (08:51→20:22)
[2019-01-09] MEDS: lactose-reduced food (Ensure Enlive) - 237ml bottle PO SCH ×3 (08:52→18:02)
[2019-01-09] MEDS: mineral oil/petrolatum, white cream 113gm jar TP SCH (08:52)
[2019-01-09] MEDS: CITALOpram 10mg tablet PO SCH (08:52)
[2019-01-09] MEDS: OLANZAPINE 5 MG TABLET PO SCH (08:52)
[2019-01-09] MEDS: lithium carbonate 150mg capsule PO SCH ×2 (08:52→20:23)
[2019-01-09] MEDS: benztropine 1mg tablet PO SCH ×2 (08:52→20:22)
[2019-01-09] MEDS: pantoprazole 40mg Tablet.DR PO SCH (08:58)
[2019-01-09] MEDS: DESMOPRESSIN ACETATE 0.1 MG TABLET PO SCH ×2 (08:58→20:24)
--- NOTE | 2019-01-09 11:18 | NUR ---
All cares given patient tolerated pureed diet and ensure . VSS. Meds taken with applesauce. patient comfortable at time of report.
--- NOTE | 2019-01-09 11:20 | NUR ---
Patient in room [facility]RE 359. I have received report from Bobbi OLEARY from PCU, and had the opportunity to ask questions and assume patient care.
--- NOTE | 2019-01-09 11:23 | NUR ---
Problems reprioritized. Patient report given, questions answered & plan of care reviewed with Kadi OLEARY Ortho Neuro..
--- NOTE | 2019-01-09 12:06 | NUR ---
Pt arrived. Tucked into bed, repositioned.
--- NOTE | 2019-01-09 13:57 | NUR ---
PAGER ID: [phone] MESSAGE: Dr. Cuevas, Ms. Ugarte in [id number] has complaints of pain in her left foot. Can we get something for pain? Thank you Kadi
[2019-01-09] MEDS: oxyCODONE IR 5mg (immed. release) tablet PO PRN (14:10)
[2019-01-09 18:00] VITALS: BP 131/67
--- NOTE | 2019-01-09 18:17 | NUR ---
Problems reprioritized. Patient report given, questions answered & plan of care reviewed with Sheyla OLEARY.
--- NOTE | 2019-01-09 18:25 | NUR ---
Patient in room ORTHO 4021. I have received report from Kadi OLEARY and had the opportunity to ask questions and assume patient care.
[2019-01-09] MEDS: traZODone 50mg tablet PO SCH (20:25)
[2019-01-09] MEDS: mirtazapine 15mg tablet PO SCH (20:27)
[2019-01-09] MEDS: quetiapine 100mg tablet PO SCH (20:27)
[2019-01-09 22:00] VITALS: BP 115/65
[2019-01-10] MEDS: oxyCODONE IR 5mg (immed. release) tablet PO PRN (05:17)
[2019-01-10 06:00] VITALS: BP 121/57
--- NOTE | 2019-01-10 06:32 | NUR ---
Problems reprioritized. Patient report given, questions answered & plan of care reviewed with Radha OLEARY.
--- NOTE | 2019-01-10 06:38 | NUR ---
Patient in room ORTHO 4021. I have received report from MAMTA Carrion and had the opportunity to ask questions and assume patient care.
[2019-01-10] MEDS: budesonide 0.5mg/2ml UD nebule IH SCH ×2 (08:42→20:29)
[2019-01-10] MEDS: albuterol 2.5 MG/3 ML nebule NEB PRN (08:42)
[2019-01-10] MEDS: furosemide 20MG tablet PO SCH (08:58)
[2019-01-10] MEDS: pantoprazole 40mg Tablet.DR PO SCH (08:58)
[2019-01-10] MEDS: lithium carbonate 150mg capsule PO SCH ×2 (08:58→21:06)
[2019-01-10] MEDS: lactobacillus rhamnosus 10,000 MMU CELLS/CAPSULE PO SCH ×2 (08:59→21:04)
[2019-01-10] MEDS: multivitamins, therapeutics tablet PO SCH (08:59)
[2019-01-10] MEDS: CITALOpram 10mg tablet PO SCH (08:59)
[2019-01-10] MEDS: DESMOPRESSIN ACETATE 0.1 MG TABLET PO SCH ×2 (08:59→21:07)
[2019-01-10] MEDS: aspirin 81mg tablet.DR PO SCH (08:59)
[2019-01-10] MEDS: benztropine 1mg tablet PO SCH ×2 (08:59→21:05)
[2019-01-10] MEDS: OLANZAPINE 5 MG TABLET PO SCH (08:59)
[2019-01-10] MEDS: docusate sod 250mg capsule PO SCH ×2 (08:59→21:04)
[2019-01-10] MEDS: gabapentin 300mg capsule PO SCH ×2 (08:59→21:05)
[2019-01-10] MEDS: acetaminophen 325mg tablet PO SCH ×2 (09:00→21:04)
[2019-01-10] MEDS: lactose-reduced food (Ensure Enlive) - 237ml bottle PO SCH ×3 (09:00→18:04)
[2019-01-10] MEDS: lamoTRIgine 25mg tablet PO SCH ×2 (09:00→21:04)
[2019-01-10] MEDS: mineral oil/petrolatum, white cream 113gm jar TP SCH (09:12)
[2019-01-10 10:00] VITALS: BP 144/58
[2019-01-10] MEDS: polyethylene glycol 3350 17gm powd pack PO SCH (16:08)
[2019-01-10 18:00] VITALS: BP 120/63
[2019-01-10] MEDS: quetiapine 100mg tablet PO SCH (21:05)
[2019-01-10] MEDS: traZODone 50mg tablet PO SCH (21:05)
[2019-01-10] MEDS: mirtazapine 15mg tablet PO SCH (21:06)
[2019-01-10 22:00] VITALS: BP 152/83
--- NOTE | 2019-01-11 06:30 | NUR ---
Received report from Destiny RN
[2019-01-11 06:58] VITALS: BP 156/76
[2019-01-11] MEDS: pantoprazole 40mg Tablet.DR PO SCH (07:30)
[2019-01-11] MEDS: budesonide 0.5mg/2ml UD nebule IH SCH ×2 (08:10→19:42)
[2019-01-11] MEDS: lactobacillus rhamnosus 10,000 MMU CELLS/CAPSULE PO SCH ×2 (08:50→21:46)
[2019-01-11] MEDS: acetaminophen 325mg tablet PO SCH ×2 (08:51→21:47)
[2019-01-11] MEDS: gabapentin 300mg capsule PO SCH ×2 (08:51→21:46)
[2019-01-11] MEDS: multivitamins, therapeutics tablet PO SCH (08:51)
[2019-01-11] MEDS: aspirin 81mg tablet.DR PO SCH (08:51)
[2019-01-11] MEDS: DESMOPRESSIN ACETATE 0.1 MG TABLET PO SCH ×2 (08:52→21:47)
[2019-01-11] MEDS: lactose-reduced food (Ensure Enlive) - 237ml bottle PO SCH ×3 (08:52→18:30)
[2019-01-11] MEDS: furosemide 20MG tablet PO SCH (08:52)
[2019-01-11] MEDS: CITALOpram 10mg tablet PO SCH (08:52)
[2019-01-11] MEDS: lamoTRIgine 25mg tablet PO SCH ×2 (08:52→21:46)
[2019-01-11] MEDS: benztropine 1mg tablet PO SCH ×2 (08:52→21:45)
[2019-01-11] MEDS: lithium carbonate 150mg capsule PO SCH ×2 (08:52→21:46)
[2019-01-11] MEDS: docusate sod 250mg capsule PO SCH ×2 (08:52→20:00)
[2019-01-11] MEDS: OLANZAPINE 5 MG TABLET PO SCH (08:52)
[2019-01-11] MEDS: mineral oil/petrolatum, white cream 113gm jar TP SCH (08:53)
--- NOTE | 2019-01-11 11:04 | NUR ---
I have reviewed and agree with all medications administered and interventions performed by [facility] Student(Abbie Luz) Addendum: 01/11/19 at 1105 by Elena Romero RT Amended: Links added.
[2019-01-11 11:23] VITALS: BP 122/62
--- NOTE | 2019-01-11 15:32 | NUR ---
Reassessment: Pt PO increased to 100% meals/ONS yesterday meeting needs. Pt had BM today per RN likely first significant since 01/05 1ml documented. Will continue to monitor. Recommendations: 1) Continue lactose free pureed diet with thin liquids per NETWORK PROGRAMMER recs 2) Ensure Enlive TID 3) Routine bowel care; additional per MD for constipation 4) Wt per rx Addendum: 01/11/19 at [address] Amended: Links added.
[2019-01-11 18:00] VITALS: BP 139/70
[2019-01-11] MEDS: traZODone 50mg tablet PO SCH (21:45)
[2019-01-11] MEDS: quetiapine 100mg tablet PO SCH (21:45)
[2019-01-11] MEDS: mirtazapine 15mg tablet PO SCH (21:47)
[2019-01-11 22:00] VITALS: BP 129/63
[2019-01-12 06:00] VITALS: BP 132/69
--- NOTE | 2019-01-12 06:15 | NUR ---
RECEIVED REPORT FROM JEN, RN
[2019-01-12] MEDS: pantoprazole 40mg Tablet.DR PO SCH (07:07)
[2019-01-12] MEDS: CITALOpram 10mg tablet PO SCH (07:08)
[2019-01-12] MEDS: benztropine 1mg tablet PO SCH ×2 (07:09→19:20)
[2019-01-12] MEDS: docusate sod 250mg capsule PO SCH ×2 (07:10→19:23)
[2019-01-12] MEDS: lactobacillus rhamnosus 10,000 MMU CELLS/CAPSULE PO SCH ×2 (07:10→19:23)
[2019-01-12] MEDS: DESMOPRESSIN ACETATE 0.1 MG TABLET PO SCH ×2 (07:11→20:26)
[2019-01-12] MEDS: aspirin 81mg tablet.DR PO SCH (07:11)
[2019-01-12] MEDS: lithium carbonate 150mg capsule PO SCH ×2 (07:12→19:20)
[2019-01-12] MEDS: gabapentin 300mg capsule PO SCH ×2 (07:15→19:20)
[2019-01-12] MEDS: acetaminophen 325mg tablet PO SCH ×2 (07:15→19:21)
[2019-01-12] MEDS: furosemide 20MG tablet PO SCH (07:15)
[2019-01-12] MEDS: multivitamins, therapeutics tablet PO SCH (07:15)
[2019-01-12] MEDS: lamoTRIgine 25mg tablet PO SCH ×2 (07:15→19:19)
[2019-01-12] MEDS: OLANZAPINE 5 MG TABLET PO SCH (07:16)
[2019-01-12] MEDS: mineral oil/petrolatum, white cream 113gm jar TP SCH (07:16)
--- NOTE | 2019-01-12 08:00 | NUR ---
UNABLE TO OBTAIN PT DAILY WT AT THIS TIME
[2019-01-12] MEDS: lactose-reduced food (Ensure Enlive) - 237ml bottle PO SCH ×3 (08:23→18:02)
[2019-01-12] MEDS: budesonide 0.5mg/2ml UD nebule IH SCH ×2 (09:10→20:01)
[2019-01-12] MEDS: albuterol 2.5 MG/3 ML nebule NEB PRN (09:11)
[2019-01-12 10:00] VITALS: BP 132/69
[2019-01-12] MEDS: polyethylene glycol 3350 17gm powd pack PO SCH (16:14)
[2019-01-12 18:00] VITALS: BP 139/74
--- NOTE | 2019-01-12 18:16 | NUR ---
GAVE REPORT TO MAMTA KIRAN
[2019-01-12] MEDS: quetiapine 100mg tablet PO SCH (20:23)
[2019-01-12] MEDS: mirtazapine 15mg tablet PO SCH (20:24)
[2019-01-12] MEDS: traZODone 50mg tablet PO SCH (20:25)
[2019-01-12 22:00] VITALS: BP 121/58
--- NOTE | 2019-01-13 05:50 | NUR ---
Student documentation: I have reviewed and agree with all interventions, assessments performed and documented by Roxie Thomson Medication Administration: For this medication-pass time frame, all medication were reviewed, dispensed, administered and documented per hospital policy by Roxie King
[2019-01-13 06:00] VITALS: BP 95/56
--- NOTE | 2019-01-13 06:10 | NUR ---
Patient in room ORTHO 4021. I have received report from QIANA OLEARY and had the opportunity to ask questions and assume patient care.
--- NOTE | 2019-01-13 06:26 | NUR ---
Report given to Hayden OLEARY.
[2019-01-13] MEDS: budesonide 0.5mg/2ml UD nebule IH SCH ×2 (07:26→19:39)
[2019-01-13] MEDS: albuterol 2.5 MG/3 ML nebule NEB PRN (07:26)
[2019-01-13] MEDS: lactose-reduced food (Ensure Enlive) - 237ml bottle PO SCH ×3 (08:00→18:00)
[2019-01-13] MEDS: lactobacillus rhamnosus 10,000 MMU CELLS/CAPSULE PO SCH ×2 (09:15→20:00)
[2019-01-13] MEDS: multivitamins, therapeutics tablet PO SCH (09:16)
[2019-01-13] MEDS: mineral oil/petrolatum, white cream 113gm jar TP SCH (09:23)
[2019-01-13] MEDS: benztropine 1mg tablet PO SCH ×2 (09:24→19:25)
[2019-01-13] MEDS: acetaminophen 325mg tablet PO SCH ×2 (09:24→19:29)
[2019-01-13] MEDS: pantoprazole 40mg Tablet.DR PO SCH (09:24)
[2019-01-13] MEDS: CITALOpram 10mg tablet PO SCH (09:24)
[2019-01-13] MEDS: docusate sod 250mg capsule PO SCH ×2 (09:24→19:30)
[2019-01-13] MEDS: aspirin 81mg tablet.DR PO SCH (09:25)
[2019-01-13] MEDS: DESMOPRESSIN ACETATE 0.1 MG TABLET PO SCH ×2 (09:25→21:14)
[2019-01-13] MEDS: furosemide 20MG tablet PO SCH (09:25)
[2019-01-13] MEDS: lithium carbonate 150mg capsule PO SCH ×2 (09:25→19:23)
[2019-01-13] MEDS: lamoTRIgine 25mg tablet PO SCH ×2 (09:25→19:21)
[2019-01-13] MEDS: gabapentin 300mg capsule PO SCH ×2 (09:26→20:00)
[2019-01-13] MEDS: OLANZAPINE 5 MG TABLET PO SCH (09:26)
[2019-01-13 10:00] VITALS: BP 123/63
[2019-01-13] MEDS: oxyCODONE IR 5mg (immed. release) tablet PO PRN ×2 (15:22→23:16)
[2019-01-13 18:00] VITALS: BP 152/70
--- NOTE | 2019-01-13 18:00 | NUR ---
Problems reprioritized. Patient report given, questions answered & plan of care reviewed with MARICEL OLEARY.
--- NOTE | 2019-01-13 18:00 | NUR ---
Problems reprioritized. Patient report given, questions answered & plan of care reviewed with MARICEL OLEARY.
[2019-01-13] MEDS: traZODone 50mg tablet PO SCH (21:10)
[2019-01-13] MEDS: mirtazapine 15mg tablet PO SCH (21:11)
[2019-01-13] MEDS: quetiapine 100mg tablet PO SCH (21:12)
[2019-01-13 22:00] VITALS: BP 137/63
[2019-01-14] MEDS ORDERED: OLANZAPINE 5 MG TABLET PO ONE (01:45)
[2019-01-14] MEDS: oxyCODONE IR 5mg (immed. release) tablet PO PRN ×3 (03:49→21:21)
[2019-01-14 06:00] VITALS: BP 142/69
--- NOTE | 2019-01-14 06:05 | NUR ---
Patient in room ORTHO 4021. I have received report from VANESA OLEARY and had the opportunity to ask questions and assume patient care.
[2019-01-14] MEDS: budesonide 0.5mg/2ml UD nebule IH SCH ×2 (07:44→20:05)
[2019-01-14] MEDS: pantoprazole 40mg Tablet.DR PO SCH (08:57)
[2019-01-14] MEDS: lactobacillus rhamnosus 10,000 MMU CELLS/CAPSULE PO SCH ×2 (08:57→20:12)
[2019-01-14] MEDS: benztropine 1mg tablet PO SCH ×2 (08:57→20:12)
[2019-01-14] MEDS: lamoTRIgine 25mg tablet PO SCH ×2 (08:57→20:13)
[2019-01-14] MEDS: aspirin 81mg tablet.DR PO SCH (08:57)
[2019-01-14] MEDS: CITALOpram 10mg tablet PO SCH (08:57)
[2019-01-14] MEDS: DESMOPRESSIN ACETATE 0.1 MG TABLET PO SCH ×2 (08:58→20:17)
[2019-01-14] MEDS: gabapentin 300mg capsule PO SCH ×2 (08:58→20:15)
[2019-01-14] MEDS: lithium carbonate 150mg capsule PO SCH ×2 (08:58→20:14)
[2019-01-14] MEDS: acetaminophen 325mg tablet PO SCH ×2 (08:58→20:15)
[2019-01-14] MEDS: furosemide 20MG tablet PO SCH (08:58)
[2019-01-14] MEDS: multivitamins, therapeutics tablet PO SCH (08:58)
[2019-01-14] MEDS: OLANZAPINE 5 MG TABLET PO SCH (08:58)
[2019-01-14] MEDS: mineral oil/petrolatum, white cream 113gm jar TP SCH (08:59)
[2019-01-14] MEDS: lactose-reduced food (Ensure Enlive) - 237ml bottle PO SCH ×3 (08:59→18:00)
[2019-01-14] MEDS: docusate sod 250mg capsule PO SCH ×2 (08:59→20:12)
[2019-01-14 10:00] VITALS: BP 131/72
[2019-01-14] MEDS: polyethylene glycol 3350 17gm powd pack PO SCH ×2 (16:20→17:54)
[2019-01-14 18:00] VITALS: BP 138/69
--- NOTE | 2019-01-14 18:00 | NUR ---
Problems reprioritized. Patient report given, questions answered & plan of care reviewed with GRACIA OLEARY.
--- NOTE | 2019-01-14 18:30 | NUR ---
Patient in room ORTHO 4021. I have received report from Hayden OLEARY and had the opportunity to ask questions and assume patient care.
[2019-01-14] MEDS: albuterol 2.5 MG/3 ML nebule NEB PRN (20:05)
[2019-01-14] MEDS: traZODone 50mg tablet PO SCH (20:16)
[2019-01-14] MEDS: quetiapine 100mg tablet PO SCH (20:16)
[2019-01-14] MEDS ORDERED: mirtazapine 15mg tablet PO SCH (21:00)
[2019-01-14 22:00] VITALS: BP 118/73
[2019-01-15] MEDS ORDERED: lamoTRIgine 25mg tablet PO SCH (02:02)
[2019-01-15] MEDS ORDERED: mirtazapine 15mg tablet PO SCH (02:05)
[2019-01-15] MEDS: oxyCODONE IR 5mg (immed. release) tablet PO PRN ×3 (02:48→21:05)
[2019-01-15 06:00] VITALS: BP 120/63
--- NOTE | 2019-01-15 06:00 | NUR ---
Patient in room ORTHO 4021. I have received report from Sheyla OLEARY and had the opportunity to ask questions and assume patient care.
--- NOTE | 2019-01-15 06:31 | NUR ---
Problems reprioritized. Patient report given, questions answered & plan of care reviewed with Morgan OLEARY.
[2019-01-15] MEDS: lithium carbonate 150mg capsule PO SCH ×2 (07:55→19:47)
[2019-01-15] MEDS: DESMOPRESSIN ACETATE 0.1 MG TABLET PO SCH ×2 (07:56→19:44)
[2019-01-15] MEDS: benztropine 1mg tablet PO SCH ×2 (07:58→19:43)
[2019-01-15] MEDS: acetaminophen 325mg tablet PO SCH ×2 (07:59→19:46)
[2019-01-15] MEDS: CITALOpram 10mg tablet PO SCH (08:00)
[2019-01-15] MEDS ORDERED: OLANZAPINE 5 MG TABLET PO SCH (08:00)
[2019-01-15] MEDS: furosemide 20MG tablet PO SCH (08:01)
[2019-01-15] MEDS: aspirin 81mg tablet.DR PO SCH (08:01)
[2019-01-15] MEDS: pantoprazole 40mg Tablet.DR PO SCH (08:02)
[2019-01-15] MEDS: docusate sod 250mg capsule PO SCH ×2 (08:03→19:46)
[2019-01-15] MEDS: multivitamins, therapeutics tablet PO SCH (08:03)
[2019-01-15] MEDS: lactobacillus rhamnosus 10,000 MMU CELLS/CAPSULE PO SCH ×2 (08:03→19:48)
[2019-01-15] MEDS: lactose-reduced food (Ensure Enlive) - 237ml bottle PO SCH ×3 (08:04→18:38)
[2019-01-15] MEDS: mineral oil/petrolatum, white cream 113gm jar TP SCH (08:04)
[2019-01-15] MEDS: gabapentin 300mg capsule PO SCH ×2 (08:09→19:47)
[2019-01-15] MEDS: budesonide 0.5mg/2ml UD nebule IH SCH ×2 (09:00→21:00)
[2019-01-15 10:00] VITALS: BP 112/70
--- NOTE | 2019-01-15 10:44 | NUR ---
unable to obtain Daily weight patient refuses to stand Addendum: 01/15/19 at 1045 by Morgan Tao RN Amended: Links added.
[2019-01-15 18:00] VITALS: BP 137/59
[2019-01-15] MEDS ORDERED: OLANZapine **IM** 10 mg inj. IM ONE (18:00)
--- NOTE | 2019-01-15 18:43 | NUR ---
Problems reprioritized. Patient report given, questions answered & plan of care reviewed with Simeon OLEARY.
--- NOTE | 2019-01-15 19:00 | NUR ---
Patient in room ORTHO 4021. I have received report from Morgan OLEARY and had the opportunity to ask questions and assume patient care.
[2019-01-15] MEDS: lamoTRIgine 100mg tablet PO SCH (19:44)
[2019-01-15] MEDS: traZODone 50mg tablet PO SCH (19:45)
[2019-01-15] MEDS: mirtazapine 15mg tablet PO SCH (19:47)
[2019-01-15] MEDS: quetiapine 100mg tablet PO SCH (19:48)
[2019-01-15 22:00] VITALS: BP 108/87
--- NOTE | 2019-01-16 00:13 | NUR ---
Patient was found hypoxic, at 75%. Patient was repositioned and 3L o2 nasal cannula was applied the patient. O2 saturation when up immediately to 95%. Heart rate was 125 but was steadily declining patient was difficult to arouse but also had taken a large amount of psyche and sedation medication after a protracted stent of constant screaming and agitation would . Contacted ICu charge, and ordered an ABG per protocol. PT Ph was with normal limits. pt was starting to wake up V/S where OK, Will continue to monitor. Addendum: 01/17/19 at 0026 by Alexi Guzman RN entry was for 01/17 @ 0025
[2019-01-16 06:00] VITALS: BP 146/66
--- NOTE | 2019-01-16 06:40 | NUR ---
Patient in room ORTHO 4021. I have received report from Simeon OLEARY and had the opportunity to ask questions and assume patient care.
[2019-01-16] MEDS: lamoTRIgine 100mg tablet PO SCH ×2 (08:25→19:40)
[2019-01-16] MEDS: furosemide 20MG tablet PO SCH (08:25)
[2019-01-16] MEDS: gabapentin 300mg capsule PO SCH ×2 (08:26→19:40)
[2019-01-16] MEDS: oxyCODONE IR 5mg (immed. release) tablet PO PRN (08:26)
[2019-01-16] MEDS: lithium carbonate 150mg capsule PO SCH ×2 (08:27→14:12)
[2019-01-16] MEDS: OLANZAPINE 5 MG TABLET PO SCH (08:27)
[2019-01-16] MEDS: benztropine 1mg tablet PO SCH ×2 (08:28→19:42)
[2019-01-16] MEDS: DESMOPRESSIN ACETATE 0.1 MG TABLET PO SCH ×2 (08:28→19:41)
[2019-01-16] MEDS: pantoprazole 40mg Tablet.DR PO SCH (08:29)
[2019-01-16] MEDS: aspirin 81mg tablet.DR PO SCH (08:29)
[2019-01-16] MEDS: docusate sod 250mg capsule PO SCH ×2 (08:29→19:42)
[2019-01-16] MEDS: citalopram 20mg tablet PO SCH (08:29)
[2019-01-16] MEDS: lactobacillus rhamnosus 10,000 MMU CELLS/CAPSULE PO SCH ×2 (08:30→19:40)
[2019-01-16] MEDS: acetaminophen 325mg tablet PO SCH ×2 (08:30→19:41)
[2019-01-16] MEDS: multivitamins, therapeutics tablet PO SCH (08:30)
[2019-01-16] MEDS: lactose-reduced food (Ensure Enlive) - 237ml bottle PO SCH ×3 (08:31→17:03)
[2019-01-16] MEDS: mineral oil/petrolatum, white cream 113gm jar TP SCH (08:31)
[2019-01-16 10:00] VITALS: BP 100/54
[2019-01-16] MEDS: budesonide 0.5mg/2ml UD nebule IH SCH ×2 (10:29→19:30)
[2019-01-16] MEDS: albuterol 2.5 MG/3 ML nebule NEB PRN (10:30)
--- NOTE | 2019-01-16 11:06 | NUR ---
called patients sister Amparo about dentures sister is getting them fixed and then will being them in along with patients glasses
[2019-01-16] MEDS ORDERED: OLANZapine **IM** 10 mg inj. IM ONE (11:15)
--- NOTE | 2019-01-16 12:30 | NUR ---
Reassessment: Pt PO returned to low 25% avg meals w/ 100% ONS but does fluctuate. [facility] 01/14. Still meeting protein needs though just under kcal goals likely given current PO. Awaiting placement per MD note. Will continue to monitor. Recommendations: 1) Continue lactose free pureed diet with thin liquids per HAND TIER recs 2) Ensure high protein TID 3) MVI for wound 4) Wt per rx Addendum: 01/16/19 at [address] Amended: Links added.
[2019-01-16] MEDS ORDERED: LORazepam 2 mg/ml vial IV ONE (16:00)
[2019-01-16] MEDS: polyethylene glycol 3350 17gm powd pack PO SCH (16:20)
[2019-01-16] MEDS ORDERED: LORazepam 1 MG tablet PO ONE (16:55)
--- NOTE | 2019-01-16 18:17 | NUR ---
Problems reprioritized. Patient report given, questions answered & plan of care reviewed with Simeon OLEARY.
[2019-01-16] MEDS: mirtazapine 15mg tablet PO SCH (19:42)
[2019-01-16] MEDS: traZODone 50mg tablet PO SCH (19:42)
[2019-01-16] MEDS: quetiapine 100mg tablet PO SCH (19:42)
[2019-01-16] MEDS: clonazePAM 0.5mg tablet PO SCH (19:42)
[2019-01-16 23:40] LABS: ABG BASE EXCESS 8.9 mmol/L (-2.0-3.0); ABG HCO3 35.9 mmol/L (22.0-26.0); ABG OXYGEN SATURATION 96.9 % (95-98); ABG PCO2 (T) 60.6 mmHg (32.0-45.0); ABG PO2 (T) 91.5 mmHg (83-108); ALLEN'S TEST Positive; FCOHb 2.5 % (0.5-1.5); FLOW 1 L/min; FMetHb 0.3 % (0.3-1.12); FO2Hb 94.2 % (94-100); PATIENT TEMPERATURE 36.8; TOTAL HEMOGLOBIN 12.5 G/dl (12.0-16.0)
--- NOTE | 2019-01-17 00:26 | NUR ---
Patient in room ORTHO 4021. I have received report from Morgan OLEARY and had the opportunity to ask questions and assume patient care.
[2019-01-17 06:00] VITALS: BP 120/78
[2019-01-17 06:14] LABS: BASOPHILS % (AUTO) 0.3 % (0-1); EOSINOPHILS # (AUTO) 0.3 X10'3 (0-0.9); EOSINOPHILS % (AUTO) 2.5 % (0-6); HEMATOCRIT 38.4 % (35.0-45.0); HEMOGLOBIN 12.6 g/dl (12.0-16.0); LYMPHOCYTES # (AUTO) 0.9 X10'3 (1.1-4.8); LYMPHOCYTES % (AUTO) 8.1 % (21-51); MEAN CORPUSCULAR HEMOGLOBIN 34.2 PG (27.0-31.0); MEAN CORPUSCULAR HGB CONC 32.8 g/dL (33.0-36.5); MEAN CORPUSCULAR VOLUME 104.2 FL (78-98); MEAN PLATELET VOLUME 8.7 FL (7.4-10.4); MONOCYTES % (AUTO) 9.5 % (2-12); NEUTROPHILS # (AUTO) 8.5 X10'3 (1.8-7.7); NEUTROPHILS % (AUTO) 79.6 % (42-75); PLATELET COUNT 218 X10'3 (140-440); RED BLOOD COUNT 3.68 X10'6 (4.20-5.60); RED CELL DISTRIBUTION WIDTH 14.5 % (11.5-14.5); WHITE BLOOD COUNT 10.7 X10'3 (4.5-11.0)
[2019-01-17 06:48] LABS: ALANINE AMINOTRANSFERASE 38 U/L (12-78); ALBUMIN 3.3 G/DL (3.4-5.0); ALKALINE PHOSPHATASE 159 IU/L (46-116); ANION GAP 5 (8-16); ASPARTATE AMINO TRANSFERASE 23 U/L (10-37); BILIRUBIN,TOTAL 0.7 MG/DL (0.1-1.0); BLOOD UREA NITROGEN 39 MG/DL (7-18); BUN/CREATININE RATIO 21.3 (6.6-38.0); CALCIUM 10.9 MG/DL (8.5-10.1); CHLORIDE 97 MMOL/L (99-107); CREATININE 1.83 MG/DL (0.40-0.90); GLUCOSE 91 MG/DL (70-104); MAGNESIUM 2.7 MG/DL (1.5-2.4); PHOSPHORUS 4.1 MG/DL (2.3-4.5); POTASSIUM 4.7 MMOL/L (3.5-5.1); SODIUM 137 MMOL/L (135-145); TOTAL CARBON DIOXIDE 35.1 MMOL/L (24-32); TOTAL PROTEIN 6.7 G/DL (6.4-8.2); eGFR 28 ML/MIN
[2019-01-17] MEDS: lithium carbonate 150mg capsule PO SCH ×4 (08:00→22:18)
[2019-01-17] MEDS: mineral oil/petrolatum, white cream 113gm jar TP SCH (08:00)
[2019-01-17] MEDS: lactose-reduced food (Ensure Enlive) - 237ml bottle PO SCH ×3 (08:00→18:00)
[2019-01-17 10:00] VITALS: BP 115/69
[2019-01-17] MEDS: budesonide 0.5mg/2ml UD nebule IH SCH (10:03)
[2019-01-17] MEDS: acetaminophen 325mg tablet PO SCH ×2 (12:53→22:17)
[2019-01-17] MEDS: citalopram 20mg tablet PO SCH (12:54)
[2019-01-17] MEDS: pantoprazole 40mg Tablet.DR PO SCH (12:54)
[2019-01-17] MEDS: benztropine 1mg tablet PO SCH ×2 (12:54→22:15)
--- NOTE | 2019-01-17 12:54 | NUR ---
PO medications held at 0800 as pt was finally sleeping after restless day yesterday with Ativan given. Pt awake at 1150. After eating lunch, 0800 medications administered at 1254 and held Solen scheduled at 1300. Pt slightly agitated at this time.
[2019-01-17] MEDS: DESMOPRESSIN ACETATE 0.1 MG TABLET PO SCH ×2 (12:55→22:16)
[2019-01-17] MEDS: lactobacillus rhamnosus 10,000 MMU CELLS/CAPSULE PO SCH ×2 (12:55→22:17)
[2019-01-17] MEDS: aspirin 81mg tablet.DR PO SCH (12:55)
[2019-01-17] MEDS: docusate sod 250mg capsule PO SCH ×2 (12:55→22:17)
[2019-01-17] MEDS: furosemide 20MG tablet PO SCH (12:56)
[2019-01-17] MEDS: clonazePAM 0.5mg tablet PO SCH ×2 (12:56→22:16)
[2019-01-17] MEDS: gabapentin 300mg capsule PO SCH ×2 (12:56→22:18)
[2019-01-17] MEDS: lamoTRIgine 100mg tablet PO SCH ×2 (12:56→22:17)
[2019-01-17] MEDS: predniSONE 20 mg tablet PO SCH (12:57)
[2019-01-17] MEDS: multivitamins, therapeutics tablet PO SCH (12:57)
[2019-01-17] MEDS: OLANZAPINE 5 MG TABLET PO SCH (12:58)
--- NOTE | 2019-01-17 18:38 | NUR ---
Patient in room ORTHO 4021. I have received report from Lisy OLEARY and had the opportunity to ask questions and assume patient care.
[2019-01-17 22:00] VITALS: BP 99/51
[2019-01-17] MEDS: traZODone 50mg tablet PO SCH (22:16)
[2019-01-17] MEDS: mirtazapine 15mg tablet PO SCH (22:17)
[2019-01-17] MEDS: quetiapine 100mg tablet PO SCH (22:18)
[2019-01-18 06:00] VITALS: BP 118/102
--- NOTE | 2019-01-18 06:26 | NUR ---
Problems reprioritized. Patient report given, questions answered & plan of care reviewed with Regina OLEARY.
[2019-01-18] MEDS: pantoprazole 40mg Tablet.DR PO SCH (07:30)
[2019-01-18] MEDS: budesonide 0.5mg/2ml UD nebule IH SCH ×2 (07:47→19:57)
[2019-01-18] MEDS: albuterol 2.5 MG/3 ML nebule NEB PRN ×2 (07:48→19:56)
[2019-01-18] MEDS: lithium carbonate 150mg capsule PO SCH ×3 (08:00→21:00)
[2019-01-18] MEDS: acetaminophen 325mg tablet PO SCH ×2 (08:00→20:06)
[2019-01-18] MEDS: lactose-reduced food (Ensure Enlive) - 237ml bottle PO SCH ×3 (08:00→18:00)
[2019-01-18] MEDS: mineral oil/petrolatum, white cream 113gm jar TP SCH ×2 (08:00→20:09)
[2019-01-18] MEDS: lamoTRIgine 100mg tablet PO SCH ×2 (09:26→20:06)
[2019-01-18] MEDS: gabapentin 300mg capsule PO SCH ×2 (09:26→20:07)
[2019-01-18] MEDS: predniSONE 20 mg tablet PO SCH (09:26)
[2019-01-18] MEDS: benztropine 1mg tablet PO SCH ×2 (09:27→20:06)
[2019-01-18] MEDS: multivitamins, therapeutics tablet PO SCH (09:27)
[2019-01-18] MEDS: furosemide 20MG tablet PO SCH (09:28)
[2019-01-18] MEDS: citalopram 20mg tablet PO SCH (09:28)
[2019-01-18] MEDS: OLANZAPINE 5 MG TABLET PO SCH (09:28)
[2019-01-18] MEDS: aspirin 81mg tablet.DR PO SCH (09:29)
[2019-01-18] MEDS: DESMOPRESSIN ACETATE 0.1 MG TABLET PO SCH ×2 (09:29→20:07)
[2019-01-18] MEDS: clonazePAM 0.5mg tablet PO SCH ×2 (09:29→20:07)
[2019-01-18] MEDS: docusate sod 250mg capsule PO SCH ×2 (09:29→20:07)
[2019-01-18] MEDS: lactobacillus rhamnosus 10,000 MMU CELLS/CAPSULE PO SCH ×2 (09:29→20:07)
[2019-01-18 10:00] VITALS: BP 112/40
--- NOTE | 2019-01-18 13:36 | NUR ---
PAGER ID: [phone] MESSAGE: [id number] Sofiya Ugarte Joffre level 1.6, do you want me to give the 1300 dose. Can we have phi joyce for patient BID Regina Vinay
--- NOTE | 2019-01-18 15:12 | NUR ---
PRESSURE ULCER EDUCATION: DEFINITION: A pressure ulcer is an area of skin that breaks down when you stay in one position too long. The constant pressure against the skin reduces the blood flow to that area and the affected tissue dies. CAUSES: "Being bedridden or in a wheelchair "Fragile skin "Having a chronic condition, such as diabetes or vascular disease "Inability to move certain parts of your body without assistance "Older age "Incontinence of urine or stool SYMPTOMS: "A reddened area that DOES NOT turn white when pressed on - this can be the beginning of a pressure ulcer "A blister, deep sore or a crater - these can be advanced pressure ulcers FIRST AID: "Relieve the pressure on this area "Keep the area clean and dry "Call your primary doctor if you see any of the above symptoms "DO NOT massage the area "DO NOT use a donut shaped or ring shaped pillow- these actually interfere with the blood flow and cause complications PREVENTION: "Check for pressure ulcers everyday "Change position at least every two hours to relieve pressure "Use items that help relieve pressure- pillows, sheepskin, foam padding, and powders. "Keep skin clean and dry "Eat healthy well balanced meals "Exercise daily IF YOU SEE ANY OF THESE SYMPTOMS WHILE IN THE HOSPITAL - TELL YOUR NURSE IMMEDIATELY. IF YOU SEE ANY OF THESE SYMPTOMS WHILE AT HOME OR HAVE ANY QUESTIONS OR CONCERNS ABOUT PRESSURE ULCERS - CALL YOUR PRIMARY DOCTOR IMMEDIATELY. Addendum: 01/18/19 at 1512 by Helga Davidson RN Amended: Links added.
[2019-01-18] MEDS: polyethylene glycol 3350 17gm powd pack PO SCH (16:20)
[2019-01-18 18:00] VITALS: BP 139/66
--- NOTE | 2019-01-18 19:00 | NUR ---
Patient in room ORTHO 4021. I have received report from Regina Meade and had the opportunity to ask questions and assume patient care. Addendum: 01/18/19 at 1922 by Guadalupe Heck RN Amended: Links added.
--- NOTE | 2019-01-18 19:11 | NUR ---
Problems reprioritized. Patient report given, questions answered & plan of care reviewed with Isela OLEARY.
--- NOTE | 2019-01-18 19:35 | NUR ---
medications given by October for this pt.
[2019-01-18] MEDS: traZODone 50mg tablet PO SCH (20:05)
[2019-01-18] MEDS: quetiapine 100mg tablet PO SCH (20:06)
[2019-01-18] MEDS: mirtazapine 15mg tablet PO SCH (20:06)
--- NOTE | 2019-01-18 20:30 | NUR ---
resting on her side eyes closed no s&s of distress.
[2019-01-18 22:00] VITALS: BP 108/52
--- NOTE | 2019-01-18 22:00 | NUR ---
resting eyes closed without s&s of distress at this time.
--- NOTE | 2019-01-18 23:21 | NUR ---
resting no changes.
--- NOTE | 2019-01-19 01:12 | NUR ---
resting without s&s of distress at this time.
--- NOTE | 2019-01-19 03:02 | NUR ---
resting without changes.
--- NOTE | 2019-01-19 05:00 | NUR ---
pt resting without changes.
--- NOTE | 2019-01-19 05:19 | NUR ---
noted pt dry at this time.
[2019-01-19 06:00] VITALS: BP 119/62
--- NOTE | 2019-01-19 06:11 | NUR ---
Problems reprioritized. Patient report given, questions answered & plan of care reviewed with Regina Meade. Addendum: 01/19/19 at 0611 by Guadalupe Heck RN Amended: Links added.
[2019-01-19] MEDS: citalopram 20mg tablet PO SCH (08:21)
[2019-01-19] MEDS: docusate sod 250mg capsule PO SCH ×2 (08:21→20:36)
[2019-01-19] MEDS: aspirin 81mg tablet.DR PO SCH (08:21)
[2019-01-19] MEDS: furosemide 20MG tablet PO SCH (08:21)
[2019-01-19] MEDS: gabapentin 300mg capsule PO SCH ×2 (08:21→20:35)
[2019-01-19] MEDS: clonazePAM 0.5mg tablet PO SCH ×2 (08:22→20:37)
[2019-01-19] MEDS: DESMOPRESSIN ACETATE 0.1 MG TABLET PO SCH ×2 (08:22→19:00)
[2019-01-19] MEDS: lactobacillus rhamnosus 10,000 MMU CELLS/CAPSULE PO SCH ×2 (08:22→20:38)
[2019-01-19] MEDS: acetaminophen 325mg tablet PO SCH ×2 (08:22→20:37)
[2019-01-19] MEDS: benztropine 1mg tablet PO SCH ×2 (08:22→20:39)
[2019-01-19] MEDS: mineral oil/petrolatum, white cream 113gm jar TP SCH ×2 (08:23→20:00)
[2019-01-19] MEDS: predniSONE 20 mg tablet PO SCH (08:26)
[2019-01-19] MEDS: lithium carbonate 150mg capsule PO SCH ×3 (08:26→21:00)
[2019-01-19] MEDS: pantoprazole 40mg Tablet.DR PO SCH (08:26)
[2019-01-19] MEDS: OLANZAPINE 5 MG TABLET PO SCH (08:26)
[2019-01-19] MEDS: lactose-reduced food (Ensure Enlive) - 237ml bottle PO SCH ×3 (08:27→18:00)
[2019-01-19] MEDS: multivitamins, therapeutics tablet PO SCH (08:27)
[2019-01-19] MEDS: lamoTRIgine 100mg tablet PO SCH ×2 (08:27→20:35)
[2019-01-19] MEDS: budesonide 0.5mg/2ml UD nebule IH SCH ×2 (08:41→19:18)
[2019-01-19 10:00] VITALS: BP 147/71
[2019-01-19 18:00] VITALS: BP 153/81
--- NOTE | 2019-01-19 18:30 | NUR ---
Patient in room ORTHO 4021. I have received report from Regina OLEARY and had the opportunity to ask questions and assume patient care.
--- NOTE | 2019-01-19 18:36 | NUR ---
Problems reprioritized. Patient report given, questions answered & plan of care reviewed with Joann OLEARY.
[2019-01-19] MEDS: albuterol 2.5 MG/3 ML nebule NEB PRN (19:18)
[2019-01-19] MEDS: oxyCODONE IR 5mg (immed. release) tablet PO PRN (20:34)
[2019-01-19] MEDS: quetiapine 100mg tablet PO SCH (20:35)
[2019-01-19] MEDS: traZODone 50mg tablet PO SCH (20:36)
[2019-01-19] MEDS: mirtazapine 15mg tablet PO SCH (20:38)
[2019-01-19 22:00] VITALS: BP 100/48
--- NOTE | 2019-01-19 22:59 | NUR ---
Informed MD of lithium level still elevated at 1.6 as of 01/18, and that the pm and evening does was not administered earlier today. Orders to draw new lithium level in the AM and dose accordingly - holding if still result still high.
[2019-01-20 06:12] LABS: ALBUMIN 3.3 G/DL (3.4-5.0); ANION GAP 4 (8-16); BLOOD UREA NITROGEN 53 MG/DL (7-18); BUN/CREATININE RATIO 28.6 (6.6-38.0); CALCIUM 10.7 MG/DL (8.5-10.1); CHLORIDE 108 MMOL/L (99-107); CREATININE 1.85 MG/DL (0.40-0.90); GLUCOSE 88 MG/DL (70-104); POTASSIUM 4.3 MMOL/L (3.5-5.1); SODIUM 149 MMOL/L (135-145); TOTAL CARBON DIOXIDE 37.2 MMOL/L (24-32); eGFR 28 ML/MIN
[2019-01-20] MEDS ORDERED: sodium chloride 0.45% 1,000 ML IV SCH (07:30)
[2019-01-20] MEDS: budesonide 0.5mg/2ml UD nebule IH SCH ×2 (07:53→21:00)
[2019-01-20] MEDS: docusate sod 250mg capsule PO SCH ×2 (08:00→20:03)
[2019-01-20] MEDS: lactose-reduced food (Ensure Enlive) - 237ml bottle PO SCH ×3 (08:00→18:00)
[2019-01-20] MEDS: mineral oil/petrolatum, white cream 113gm jar TP SCH ×2 (08:00→20:11)
[2019-01-20] MEDS: clonazePAM 0.5mg tablet PO SCH ×2 (08:37→20:40)
[2019-01-20] MEDS: LORazepam 0.5 MG tablet PO PRN (08:37)
[2019-01-20] MEDS: DESMOPRESSIN ACETATE 0.1 MG TABLET PO SCH ×2 (08:38→20:05)
[2019-01-20] MEDS: benztropine 1mg tablet PO SCH ×2 (08:38→20:04)
[2019-01-20] MEDS: pantoprazole 40mg Tablet.DR PO SCH (08:38)
[2019-01-20] MEDS: citalopram 20mg tablet PO SCH (08:39)
[2019-01-20] MEDS: predniSONE 20 mg tablet PO SCH (08:39)
[2019-01-20] MEDS: aspirin 81mg tablet.DR PO SCH (08:39)
[2019-01-20] MEDS: lamoTRIgine 100mg tablet PO SCH ×2 (08:39→20:03)
[2019-01-20] MEDS: acetaminophen 325mg tablet PO SCH ×2 (08:39→20:04)
[2019-01-20] MEDS: gabapentin 300mg capsule PO SCH ×2 (08:39→20:04)
[2019-01-20] MEDS: furosemide 20MG tablet PO SCH (08:39)
[2019-01-20] MEDS: multivitamins, therapeutics tablet PO SCH (08:39)
[2019-01-20] MEDS: OLANZAPINE 5 MG TABLET PO SCH (08:39)
[2019-01-20] MEDS: lactobacillus rhamnosus 10,000 MMU CELLS/CAPSULE PO SCH ×2 (08:39→20:04)
[2019-01-20] MEDS: lithium carbonate 150mg capsule PO SCH ×3 (08:39→20:40)
[2019-01-20 10:48] VITALS: BP 123/68
--- NOTE | 2019-01-20 13:31 | NUR ---
patient sleeping after being awake most of the night. family at the bedside and patient was happy to see said family when she woke up and now she is going back to sleep, patient states no pain and wick remains in place
[2019-01-20] MEDS: polyethylene glycol 3350 17gm powd pack PO SCH (15:35)
--- NOTE | 2019-01-20 16:39 | NUR ---
bladder scanned patient, 180ml and second time 250 ml, order is to straight cath for over 400ml, patient still has wick in place also
[2019-01-20 18:00] VITALS: BP 132/72
--- NOTE | 2019-01-20 18:40 | NUR ---
Patient in room ORTHO 4021. I have received report from MAMTA Luz and had the opportunity to ask questions and assume patient care.
[2019-01-20] MEDS: traZODone 50mg tablet PO SCH (20:03)
[2019-01-20] MEDS: mirtazapine 15mg tablet PO SCH (20:04)
[2019-01-20] MEDS: quetiapine 100mg tablet PO SCH (20:04)
[2019-01-20 22:00] VITALS: BP 112/63
--- NOTE | 2019-01-21 | NUR ---
Patient was bladder scanned and 470 was detected on scanner. Patient was straight cathed and had 400 mL urine output.
[2019-01-21 06:00] VITALS: BP 133/76
--- NOTE | 2019-01-21 06:27 | NUR ---
Problems reprioritized. Patient report given, questions answered & plan of care reviewed with MAMTA Maldonado.
--- NOTE | 2019-01-21 06:29 | NUR ---
Patient in room ORTHO 4021. I have received report from Loren OLEARY and had the opportunity to ask questions and assume patient care.
[2019-01-21 06:32] LABS: ALBUMIN 3.4 G/DL (3.4-5.0); ANION GAP 3 (8-16); BLOOD UREA NITROGEN 44 MG/DL (7-18); BUN/CREATININE RATIO 27.5 (6.6-38.0); CALCIUM 10.9 MG/DL (8.5-10.1); CHLORIDE 109 MMOL/L (99-107); GLUCOSE 80 MG/DL (70-104); POTASSIUM 4.5 MMOL/L (3.5-5.1); SODIUM 150 MMOL/L (135-145); TOTAL CARBON DIOXIDE 37.8 MMOL/L (24-32); eGFR 33 ML/MIN
[2019-01-21] MEDS: furosemide 20MG tablet PO SCH (07:22)
[2019-01-21] MEDS: multivitamins, therapeutics tablet PO SCH (07:24)
[2019-01-21] MEDS: lamoTRIgine 100mg tablet PO SCH ×2 (07:24→19:22)
[2019-01-21] MEDS: predniSONE 20 mg tablet PO SCH (07:24)
[2019-01-21] MEDS: gabapentin 300mg capsule PO SCH (07:24)
[2019-01-21] MEDS: lithium carbonate 150mg capsule PO SCH ×2 (07:25→19:21)
[2019-01-21] MEDS: pantoprazole 40mg Tablet.DR PO SCH (07:25)
[2019-01-21] MEDS: aspirin 81mg tablet.DR PO SCH (07:25)
[2019-01-21] MEDS: benztropine 1mg tablet PO SCH (07:25)
[2019-01-21] MEDS: lactobacillus rhamnosus 10,000 MMU CELLS/CAPSULE PO SCH ×2 (07:25→19:21)
[2019-01-21] MEDS: OLANZAPINE 5 MG TABLET PO SCH (07:25)
[2019-01-21] MEDS: docusate sod 250mg capsule PO SCH ×2 (07:25→19:24)
[2019-01-21] MEDS: DESMOPRESSIN ACETATE 0.1 MG TABLET PO SCH (07:25)
[2019-01-21] MEDS: acetaminophen 325mg tablet PO SCH ×2 (07:26→19:23)
[2019-01-21] MEDS: citalopram 20mg tablet PO SCH (07:26)
[2019-01-21] MEDS: clonazePAM 0.5mg tablet PO SCH ×2 (07:26→19:22)
[2019-01-21] MEDS: mineral oil/petrolatum, white cream 113gm jar TP SCH ×2 (08:00→19:24)
--- NOTE | 2019-01-21 08:34 | NUR ---
PAGER ID: [phone] MESSAGE: [id number] Sofiya Ugarte. I saw you ordered fluids, has order for no IV. She is on fluid restriction but do you want to continue that or adjust? Its 1200/day. Erica [id number]
[2019-01-21] MEDS: budesonide 0.5mg/2ml UD nebule IH SCH ×2 (08:35→21:00)
[2019-01-21] MEDS: albuterol 2.5 MG/3 ML nebule NEB PRN (08:36)
[2019-01-21] MEDS: lactose-reduced food (Ensure Enlive) - 237ml bottle PO SCH ×3 (08:37→18:55)
[2019-01-21] MEDS: sodium chloride 0.45% 1,000 ML IV SCH ×2 (09:49→21:48)
[2019-01-21 10:00] VITALS: BP 125/63
--- NOTE | 2019-01-21 11:01 | NUR ---
Reassessment: PO intake continues to fluctuate. Previously up to 50% and 100% PO intake of meals 01/18-breakfast on 01/20. Most recent meals 25-50% with some refusals. Per RN notes 01/20 pt sleeping during the day d/t being up most of the night, likely the cause for decrease in PO intake that day. Pt continues with 100% PO intake of ONS likely meeting nutrient needs. Pt's skin appears intact with some IAD per [facility]OC notes 01/06 for f/u eval of documented sacral stage II PU. LBM 01/20. Pt awaiting placement per MD notes. Will continue to follow. Recommendations: 1) Continue lactose free pureed diet with thin liquids per PEBBLE MILL OPERATOR recs 2) Ensure high protein TID 3) MVI for wound 4) Wt per rx Addendum: 01/21/19 at [address] Amended: Links added.
[2019-01-21 18:00] VITALS: BP 127/80
--- NOTE | 2019-01-21 18:22 | NUR ---
Problems reprioritized. Patient report given, questions answered & plan of care reviewed with Brandee Cole RN.
[2019-01-21] MEDS: traZODone 50mg tablet PO SCH (19:21)
[2019-01-21] MEDS: QUEtiapine 25mg tablet PO SCH (19:22)
[2019-01-21 22:00] VITALS: BP 125/57
[2019-01-22 06:00] VITALS: BP 142/81
--- NOTE | 2019-01-22 06:00 | NUR ---
Patient in room ORTHO 4021. I have received report from Brandee Cole RN and had the opportunity to ask questions and assume patient care.
--- NOTE | 2019-01-22 06:17 | NUR ---
Problems reprioritized. Patient report given, questions answered & plan of care reviewed with MAMTA Maldonado.
[2019-01-22] MEDS: clonazePAM 0.5mg tablet PO SCH ×2 (08:44→19:50)
[2019-01-22] MEDS: OLANZAPINE 5 MG TABLET PO SCH (08:44)
[2019-01-22] MEDS: citalopram 20mg tablet PO SCH (08:44)
[2019-01-22] MEDS: multivitamins, therapeutics tablet PO SCH (08:44)
[2019-01-22] MEDS: aspirin 81mg tablet.DR PO SCH (08:44)
[2019-01-22] MEDS: mineral oil/petrolatum, white cream 113gm jar TP SCH ×2 (08:45→19:52)
[2019-01-22] MEDS: lamoTRIgine 100mg tablet PO SCH ×2 (08:45→19:50)
[2019-01-22] MEDS: lithium carbonate 150mg capsule PO SCH ×2 (08:45→19:50)
[2019-01-22] MEDS: docusate sod 250mg capsule PO SCH ×2 (08:45→19:00)
[2019-01-22] MEDS: acetaminophen 325mg tablet PO SCH ×2 (08:45→19:51)
[2019-01-22] MEDS: lactobacillus rhamnosus 10,000 MMU CELLS/CAPSULE PO SCH ×2 (08:45→19:50)
[2019-01-22] MEDS: lactose-reduced food (Ensure Enlive) - 237ml bottle PO SCH ×3 (08:55→18:43)
[2019-01-22] MEDS: pantoprazole 40mg Tablet.DR PO SCH (08:55)
[2019-01-22] MEDS: sodium chloride 0.45% 1,000 ML IV SCH (09:01)
[2019-01-22 10:00] VITALS: BP 118/60
[2019-01-22] MEDS: budesonide 0.5mg/2ml UD nebule IH SCH ×2 (10:38→20:31)
[2019-01-22 10:52] LABS: BASOPHILS % (AUTO) 0.2 % (0-1); EOSINOPHILS # (AUTO) 0.3 X10'3 (0-0.9); EOSINOPHILS % (AUTO) 3.1 % (0-6); HEMATOCRIT 40.2 % (35.0-45.0); LYMPHOCYTES # (AUTO) 1.1 X10'3 (1.1-4.8); LYMPHOCYTES % (AUTO) 13.4 % (21-51); MEAN CORPUSCULAR HEMOGLOBIN 34.1 PG (27.0-31.0); MEAN CORPUSCULAR HGB CONC 32.3 g/dL (33.0-36.5); MEAN CORPUSCULAR VOLUME 105.7 FL (78-98); MEAN PLATELET VOLUME 8.4 FL (7.4-10.4); MONOCYTES # (AUTO) 0.5 X10'3 (0-0.9); MONOCYTES % (AUTO) 5.3 % (2-12); NEUTROPHILS # (AUTO) 6.6 X10'3 (1.8-7.7); PLATELET COUNT 237 X10'3 (140-440); RED BLOOD COUNT 3.81 X10'6 (4.20-5.60); RED CELL DISTRIBUTION WIDTH 14.6 % (11.5-14.5); WHITE BLOOD COUNT 8.5 X10'3 (4.5-11.0)
[2019-01-22 11:02] LABS: ALBUMIN 3.2 G/DL (3.4-5.0); ANION GAP 2 (8-16); BLOOD UREA NITROGEN 41 MG/DL (7-18); BUN/CREATININE RATIO 25.8 (6.6-38.0); CALCIUM 10.4 MG/DL (8.5-10.1); CHLORIDE 106 MMOL/L (99-107); CREATININE 1.59 MG/DL (0.40-0.90); GLUCOSE 105 MG/DL (70-104); POTASSIUM 3.9 MMOL/L (3.5-5.1); SODIUM 144 MMOL/L (135-145); TOTAL CARBON DIOXIDE 35.9 MMOL/L (24-32); eGFR 33 ML/MIN
[2019-01-22] MEDS: polyethylene glycol 3350 17gm powd pack PO SCH (16:20)
[2019-01-22 18:00] VITALS: BP 112/64
--- NOTE | 2019-01-22 18:14 | NUR ---
Problems reprioritized. Patient report given, questions answered & plan of care reviewed with Brandee Cole RN.
[2019-01-22] MEDS: traZODone 50mg tablet PO SCH (19:50)
[2019-01-22] MEDS: QUEtiapine 25mg tablet PO SCH (19:51)
[2019-01-22] MEDS: albuterol 2.5 MG/3 ML nebule NEB PRN (20:32)
[2019-01-22 22:00] VITALS: BP 106/55
[2019-01-22] MEDS: LORazepam 0.5 MG tablet PO PRN (22:18)
[2019-01-23] MEDS: sodium chloride 0.45% 1,000 ML IV SCH ×2 (01:10→13:25)
[2019-01-23 06:10] VITALS: BP 99/46
--- NOTE | 2019-01-23 06:25 | NUR ---
Problems reprioritized. Patient report given, questions answered & plan of care reviewed with MAMTA Carcamo.
--- NOTE | 2019-01-23 06:30 | NUR ---
I have received patient report from Brandee OLEARY
[2019-01-23] MEDS: lactose-reduced food (Ensure Enlive) - 237ml bottle PO SCH ×3 (08:00→18:37)
[2019-01-23] MEDS: citalopram 20mg tablet PO SCH (08:42)
[2019-01-23] MEDS: OLANZAPINE 5 MG TABLET PO SCH (08:43)
[2019-01-23] MEDS: lactobacillus rhamnosus 10,000 MMU CELLS/CAPSULE PO SCH ×2 (08:43→19:24)
[2019-01-23] MEDS: aspirin 81mg tablet.DR PO SCH (08:43)
[2019-01-23] MEDS: multivitamins, therapeutics tablet PO SCH (08:43)
[2019-01-23] MEDS: pantoprazole 40mg Tablet.DR PO SCH (08:43)
[2019-01-23] MEDS: lamoTRIgine 100mg tablet PO SCH ×2 (08:43→19:25)
[2019-01-23] MEDS: docusate sod 250mg capsule PO SCH ×2 (08:43→18:37)
[2019-01-23] MEDS: clonazePAM 0.5mg tablet PO SCH ×2 (08:43→19:26)
[2019-01-23] MEDS: lithium carbonate 150mg capsule PO SCH ×2 (08:43→19:25)
[2019-01-23] MEDS: acetaminophen 325mg tablet PO SCH ×2 (08:44→19:25)
[2019-01-23] MEDS: mineral oil/petrolatum, white cream 113gm jar TP SCH ×2 (08:45→19:26)
[2019-01-23] MEDS: budesonide 0.5mg/2ml UD nebule IH SCH ×2 (09:00→20:00)
[2019-01-23 10:00] VITALS: BP 91/63
[2019-01-23] MEDS: LORazepam 0.5 MG tablet PO PRN ×2 (14:34→20:38)
[2019-01-23 18:00] VITALS: BP 117/61
[2019-01-23] MEDS: traZODone 50mg tablet PO SCH (19:24)
[2019-01-23] MEDS: QUEtiapine 25mg tablet PO SCH (19:26)
[2019-01-23] MEDS: albuterol 2.5 MG/3 ML nebule NEB PRN (20:00)
[2019-01-23 22:04] VITALS: BP 117/59
[2019-01-24] MEDS: sodium chloride 0.45% 1,000 ML IV SCH ×2 (01:39→15:17)
[2019-01-24 06:00] VITALS: BP 130/70
--- NOTE | 2019-01-24 06:06 | NUR ---
Problems reprioritized. Patient report given, questions answered & plan of care reviewed with MAMTA Bryant.
--- NOTE | 2019-01-24 06:15 | NUR ---
received report from daphnie nieto
[2019-01-24] MEDS: pantoprazole 40mg Tablet.DR PO SCH (07:30)
[2019-01-24] MEDS: lactose-reduced food (Ensure Enlive) - 237ml bottle PO SCH ×3 (07:45→18:01)
[2019-01-24] MEDS: LORazepam 0.5 MG tablet PO PRN ×2 (07:54→15:15)
[2019-01-24] MEDS: lamoTRIgine 100mg tablet PO SCH ×2 (07:55→19:21)
[2019-01-24] MEDS: lithium carbonate 150mg capsule PO SCH ×2 (07:55→19:21)
[2019-01-24] MEDS: OLANZAPINE 5 MG TABLET PO SCH (07:55)
[2019-01-24] MEDS: citalopram 20mg tablet PO SCH (07:56)
[2019-01-24] MEDS: clonazePAM 0.5mg tablet PO SCH ×2 (07:57→19:20)
[2019-01-24] MEDS: docusate sod 250mg capsule PO SCH ×2 (07:59→19:20)
[2019-01-24] MEDS: multivitamins, therapeutics tablet PO SCH (07:59)
[2019-01-24] MEDS: acetaminophen 325mg tablet PO SCH ×2 (07:59→19:21)
[2019-01-24] MEDS: mineral oil/petrolatum, white cream 113gm jar TP SCH ×2 (07:59→19:30)
[2019-01-24] MEDS: lactobacillus rhamnosus 10,000 MMU CELLS/CAPSULE PO SCH ×2 (07:59→19:20)
[2019-01-24] MEDS: aspirin 81mg tablet.DR PO SCH (07:59)
[2019-01-24] MEDS: budesonide 0.5mg/2ml UD nebule IH SCH ×2 (09:01→20:08)
[2019-01-24] MEDS: albuterol 2.5 MG/3 ML nebule NEB PRN ×2 (09:01→20:08)
[2019-01-24 10:00] VITALS: BP 119/58
[2019-01-24] MEDS: polyethylene glycol 3350 17gm powd pack PO SCH (16:20)
[2019-01-24 18:00] VITALS: BP 132/64
--- NOTE | 2019-01-24 18:08 | NUR ---
gave report to daphnie angeles
--- NOTE | 2019-01-24 18:35 | NUR ---
Patient in room ORTHO 4021. I have received report from Annette OLEARY and had the opportunity to ask questions and assume patient care.
[2019-01-24] MEDS: traZODone 50mg tablet PO SCH (19:21)
[2019-01-24] MEDS: QUEtiapine 25mg tablet PO SCH (19:21)
[2019-01-25 02:00] VITALS: BP 124/79
[2019-01-25] MEDS: sodium chloride 0.45% 1,000 ML IV SCH ×2 (04:19→22:10)
[2019-01-25 06:00] VITALS: BP 138/66
--- NOTE | 2019-01-25 06:30 | NUR ---
Problems reprioritized. Patient report given, questions answered & plan of care reviewed with Mary RN and Vanessa RN.
[2019-01-25] MEDS: clonazePAM 0.5mg tablet PO SCH ×2 (07:25→19:20)
[2019-01-25] MEDS: multivitamins, therapeutics tablet PO SCH (07:26)
[2019-01-25] MEDS: LORazepam 0.5 MG tablet PO PRN ×2 (07:26→13:49)
[2019-01-25] MEDS: pantoprazole 40mg Tablet.DR PO SCH (07:26)
[2019-01-25] MEDS: lithium carbonate 150mg capsule PO SCH ×2 (07:26→19:16)
[2019-01-25] MEDS: lamoTRIgine 100mg tablet PO SCH ×2 (07:26→19:15)
[2019-01-25] MEDS: mineral oil/petrolatum, white cream 113gm jar TP SCH ×2 (07:27→19:17)
[2019-01-25] MEDS: OLANZAPINE 5 MG TABLET PO SCH (07:27)
[2019-01-25] MEDS: acetaminophen 325mg tablet PO SCH ×2 (07:27→19:16)
[2019-01-25] MEDS: lactobacillus rhamnosus 10,000 MMU CELLS/CAPSULE PO SCH ×2 (07:27→19:15)
[2019-01-25] MEDS: citalopram 20mg tablet PO SCH (07:27)
[2019-01-25] MEDS: aspirin 81mg tablet.DR PO SCH (07:27)
[2019-01-25] MEDS: docusate sod 250mg capsule PO SCH ×2 (07:27→19:15)
[2019-01-25] MEDS: lactose-reduced food (Ensure Enlive) - 237ml bottle PO SCH ×3 (08:12→17:54)
[2019-01-25 09:58] VITALS: BP 113/59
[2019-01-25] MEDS: budesonide 0.5mg/2ml UD nebule IH SCH ×2 (10:10→20:30)
[2019-01-25] MEDS: albuterol 2.5 MG/3 ML nebule NEB PRN (10:10)
[2019-01-25 10:18] LABS: % IRON SATURATION 42 % (11-46); IRON 106 UG/DL (49-151); TOTAL IRON BINDING CAPACITY 251 UG/DL (259-388)
[2019-01-25 10:32] LABS: ALANINE AMINOTRANSFERASE 28 U/L (12-78); ALBUMIN 3.2 G/DL (3.4-5.0); ALKALINE PHOSPHATASE 114 IU/L (46-116); ANION GAP 8 (8-16); ASPARTATE AMINO TRANSFERASE 17 U/L (10-37); BILIRUBIN,TOTAL 0.4 MG/DL (0.1-1.0); BLOOD UREA NITROGEN 19 MG/DL (7-18); BUN/CREATININE RATIO 14.1 (6.6-38.0); CALCIUM 9.6 MG/DL (8.5-10.1); CHLORIDE 108 MMOL/L (99-107); CREATININE 1.35 MG/DL (0.40-0.90); GLUCOSE 106 MG/DL (70-104); POTASSIUM 4.2 MMOL/L (3.5-5.1); SODIUM 145 MMOL/L (135-145); TOTAL CARBON DIOXIDE 28.8 MMOL/L (24-32); TOTAL PROTEIN 6.5 G/DL (6.4-8.2); eGFR 40 ML/MIN
[2019-01-25 15:00] LABS: BASOPHILS % (AUTO) 0.2 % (0-1); EOSINOPHILS # (AUTO) 0.2 X10'3 (0-0.9); EOSINOPHILS % (AUTO) 3.7 % (0-6); HEMATOCRIT 37.9 % (35.0-45.0); HEMOGLOBIN 12.3 g/dl (12.0-16.0); LYMPHOCYTES # (AUTO) 0.8 X10'3 (1.1-4.8); LYMPHOCYTES % (AUTO) 12.2 % (21-51); MEAN CORPUSCULAR HEMOGLOBIN 34.1 PG (27.0-31.0); MEAN CORPUSCULAR HGB CONC 32.4 g/dL (33.0-36.5); MEAN CORPUSCULAR VOLUME 105.5 FL (78-98); MEAN PLATELET VOLUME 8.6 FL (7.4-10.4); MONOCYTES # (AUTO) 0.4 X10'3 (0-0.9); MONOCYTES % (AUTO) 5.8 % (2-12); NEUTROPHILS # (AUTO) 5.2 X10'3 (1.8-7.7); NEUTROPHILS % (AUTO) 78.1 % (42-75); PLATELET COUNT 172 X10'3 (140-440); RED BLOOD COUNT 3.59 X10'6 (4.20-5.60); RED CELL DISTRIBUTION WIDTH 14.7 % (11.5-14.5); WHITE BLOOD COUNT 6.6 X10'3 (4.5-11.0)
[2019-01-25 17:00] VITALS: BP 132/69
[2019-01-25] MEDS: QUEtiapine 25mg tablet PO SCH (19:15)
[2019-01-25] MEDS: traZODone 50mg tablet PO SCH (19:15)
[2019-01-25] MEDS: ondansetron/PF 4mg/2ml inj IV PRN (19:17)
[2019-01-26 06:00] VITALS: BP 105/60
--- NOTE | 2019-01-26 06:23 | NUR ---
Patient report given, questions answered & plan of care reviewed with Radha OLEARY.
--- NOTE | 2019-01-26 06:42 | NUR ---
Patient in room ORTHO 4018. I have received report from MAMTA Lennon and had the opportunity to ask questions and assume patient care.
[2019-01-26] MEDS: multivitamins, therapeutics tablet PO SCH ×2 (08:00→10:24)
[2019-01-26] MEDS: acetaminophen 325mg tablet PO SCH ×2 (08:00→10:30)
[2019-01-26] MEDS: budesonide 0.5mg/2ml UD nebule IH SCH ×2 (08:55→20:21)
--- NOTE | 2019-01-26 09:15 | NUR ---
I have reviewed and agree with all medications administered and interventions performed by [facility] Student Sudha Leavitt Addendum: 01/26/19 at 0915 by Brooklynn Lobo RT Amended: Links added.
[2019-01-26 10:00] VITALS: BP 142/55
[2019-01-26] MEDS: citalopram 20mg tablet PO SCH (10:23)
[2019-01-26] MEDS: aspirin 81mg tablet.DR PO SCH (10:23)
[2019-01-26] MEDS: pantoprazole 40mg Tablet.DR PO SCH (10:23)
[2019-01-26] MEDS: clonazePAM 0.5mg tablet PO SCH ×2 (10:23→19:47)
[2019-01-26] MEDS: lactobacillus rhamnosus 10,000 MMU CELLS/CAPSULE PO SCH ×2 (10:23→19:00)
[2019-01-26] MEDS: lithium carbonate 150mg capsule PO SCH ×2 (10:24→19:46)
[2019-01-26] MEDS: docusate sod 250mg capsule PO SCH ×2 (10:24→19:00)
[2019-01-26] MEDS: lamoTRIgine 100mg tablet PO SCH ×2 (10:24→19:46)
[2019-01-26] MEDS: folic acid 1mg tablet PO SCH (10:24)
[2019-01-26] MEDS: lactose-reduced food (Ensure Enlive) - 237ml bottle PO SCH ×3 (10:25→18:00)
[2019-01-26] MEDS: OLANZAPINE 5 MG TABLET PO SCH (10:30)
[2019-01-26] MEDS: sodium chloride 0.45% 1,000 ML IV SCH (11:19)
[2019-01-26] MEDS: ondansetron/PF 4mg/2ml inj IV PRN (12:51)
[2019-01-26] MEDS: mineral oil/petrolatum, white cream 113gm jar TP SCH ×2 (13:13→19:53)
--- NOTE | 2019-01-26 14:55 | NUR ---
Reassessment: Pt s/p BSS 01/26 with PHARMACOVIGILANCE SPECIALIST recs to continue pureed food with thin liquids d/t pt refusing to wear upper dentures. Pt continues with fluctuating PO intake documented to have refused all meals 01/25 but with 50% PO intake at breakfast this morning. Pt continues with mostly 100% PO intake of Ensure Enlive TID. Per [facility]OC notes stage II PU to sacrum is healed. Per MD notes to d/w psychiatrist for possible consultation. [facility] 01/24. Will continue to follow. Recommendations: 1) Continue lactose free pureed diet with thin liquids per PHARMACOVIGILANCE SPECIALIST recs 2) Ensure Enlive TID 3) Wt per rx Addendum: 01/26/19 at [address] Amended: Links added.
[2019-01-26] MEDS: polyethylene glycol 3350 17gm powd pack PO SCH (16:20)
[2019-01-26 18:48] VITALS: BP 99/66
[2019-01-26] MEDS: QUEtiapine 25mg tablet PO SCH (19:46)
[2019-01-26] MEDS: traZODone 50mg tablet PO SCH (19:46)
[2019-01-26] MEDS: LORazepam 0.5 MG tablet PO PRN (19:46)
[2019-01-26 22:25] VITALS: BP 121/63
[2019-01-27] MEDS: sodium chloride 0.45% 1,000 ML IV SCH ×2 (03:59→19:10)
[2019-01-27 05:18] VITALS: BP 131/65
--- NOTE | 2019-01-27 06:20 | NUR ---
Problems reprioritized. Patient report given, questions answered & plan of care reviewed with MAMTA Luz. Addendum: 01/27/19 at 0620 by Blanca Awan RN Amended: Links added.
[2019-01-27] MEDS: docusate sod 250mg capsule PO SCH ×2 (08:00→19:00)
[2019-01-27] MEDS: multivitamins, therapeutics tablet PO SCH ×2 (08:00→09:00)
[2019-01-27] MEDS: lactose-reduced food (Ensure Enlive) - 237ml bottle PO SCH ×3 (08:00→18:00)
[2019-01-27] MEDS: clonazePAM 0.5mg tablet PO SCH ×2 (08:00→19:02)
[2019-01-27] MEDS: LORazepam 0.5 MG tablet PO PRN (08:59)
[2019-01-27] MEDS: OLANZAPINE 5 MG TABLET PO SCH (08:59)
[2019-01-27] MEDS: lithium carbonate 150mg capsule PO SCH ×2 (08:59→19:03)
[2019-01-27] MEDS: folic acid 1mg tablet PO SCH (08:59)
[2019-01-27] MEDS: pantoprazole 40mg Tablet.DR PO SCH (09:00)
[2019-01-27] MEDS: citalopram 20mg tablet PO SCH (09:00)
[2019-01-27] MEDS: lamoTRIgine 100mg tablet PO SCH ×2 (09:00→19:00)
[2019-01-27] MEDS: aspirin 81mg tablet.DR PO SCH (09:00)
[2019-01-27] MEDS: lactobacillus rhamnosus 10,000 MMU CELLS/CAPSULE PO SCH ×2 (09:00→19:00)
[2019-01-27] MEDS: acetaminophen 325mg tablet PO SCH ×2 (09:01→19:03)
[2019-01-27] MEDS: oxyCODONE IR 5mg (immed. release) tablet PO PRN (09:02)
[2019-01-27] MEDS: mineral oil/petrolatum, white cream 113gm jar TP SCH ×2 (09:02→19:00)
[2019-01-27] MEDS: budesonide 0.5mg/2ml UD nebule IH SCH ×2 (09:16→20:39)
[2019-01-27] MEDS: albuterol 2.5 MG/3 ML nebule NEB PRN (09:16)
[2019-01-27 10:00] VITALS: BP 104/49
[2019-01-27 18:00] VITALS: BP 120/60
--- NOTE | 2019-01-27 18:10 | NUR ---
Patient in room ORTHO 4018. I have received report from MAMTA Luz and had the opportunity to ask questions and assume patient care.
[2019-01-27] MEDS: QUEtiapine 25mg tablet PO SCH (19:00)
[2019-01-27] MEDS: traZODone 50mg tablet PO SCH (19:06)
[2019-01-28] VITALS: BP 148/85
--- NOTE | 2019-01-28 00:36 | NUR ---
Attempted twice to put a new iv line in patient before she got agitated. Unable to place new iv line. Will have day shift attempt with ultrasound tomorrow.
[2019-01-28] MEDS: sodium chloride 0.45% 1,000 ML IV SCH (05:03)
[2019-01-28 06:00] VITALS: BP 145/71
--- NOTE | 2019-01-28 06:20 | NUR ---
Problems reprioritized. Patient report given, questions answered & plan of care reviewed with Deshaun Parnell.
[2019-01-28] MEDS: pantoprazole 40mg Tablet.DR PO SCH (07:30)
[2019-01-28] MEDS: docusate sod 250mg capsule PO SCH ×2 (08:00→18:45)
[2019-01-28] MEDS: lactose-reduced food (Ensure Enlive) - 237ml bottle PO SCH ×3 (08:00→18:20)
[2019-01-28] MEDS: lactobacillus rhamnosus 10,000 MMU CELLS/CAPSULE PO SCH ×2 (08:00→18:46)
[2019-01-28] MEDS: folic acid 1mg tablet PO SCH (08:00)
[2019-01-28] MEDS: budesonide 0.5mg/2ml UD nebule IH SCH ×2 (09:04→19:56)
--- NOTE | 2019-01-28 09:30 | NUR ---
FRANCIA in place Addendum: 01/28/19 at 1804 by Maria G Browne RN Amended: Links added.
[2019-01-28] MEDS: citalopram 20mg tablet PO SCH (09:42)
[2019-01-28] MEDS: aspirin 81mg tablet.DR PO SCH (09:43)
[2019-01-28] MEDS: lithium carbonate 150mg capsule PO SCH ×3 (09:46→18:50)
[2019-01-28] MEDS: multivitamins, therapeutics tablet PO SCH (09:46)
[2019-01-28] MEDS: lamoTRIgine 100mg tablet PO SCH ×2 (09:46→18:46)
[2019-01-28] MEDS: acetaminophen 325mg tablet PO SCH ×2 (09:47→18:45)
[2019-01-28] MEDS: OLANZAPINE 5 MG TABLET PO SCH (09:48)
[2019-01-28] MEDS: mineral oil/petrolatum, white cream 113gm jar TP SCH ×3 (09:48→18:50)
[2019-01-28] MEDS: clonazePAM 0.5mg tablet PO SCH ×3 (09:49→18:50)
[2019-01-28 10:00] VITALS: BP 128/62
--- NOTE | 2019-01-28 13:19 | NUR ---
Reassessment: Pt s/p BSS 01/26 with YARDAGE ESTIMATOR recs to continue pureed food with thin liquids d/t pt refusing to wear upper dentures. Pt refusing most Pt continues with mostly 100% Ensure Enlive TID and now decreasing to 0-25% intake. Per MD note patient had been up all night, sleeping during the day, this may also impact PO intake if pt sleeping through meals. Per RN note patient is confused, A/O x2, agitated, this may all contribute to poor PO. The following message sent to MD: Refusing most meals for past 7 days, now refusing supplement, poor intake throughout admission, pt has lost 10 kg in six wks. Possibly a candidate for Tube Feeding if continues, pt is A/O x2. Noted that patient has lost 10 kg in six weeks as it appears on bedscale. Per [facility]OC notes stage II PU to sacrum is healed. LBM 01/27. With recent weight loss and poor PO less than 50% for more than a week patient meets criteria for severe malnutrition. Will continue to follow. Recommendations: 1) Continue lactose free pureed diet with thin liquids per YARDAGE ESTIMATOR recs 2) Continue Ensure Enlive TID 3) Wt per rx 4) In view of patient's weight loss and poor PO intake for a week, patient may benefit from alternative nutrition with TF, notified Addendum: 01/28/19 at [address] Amended: Links added.
--- NOTE | 2019-01-28 15:32 | NUR ---
pt ate one bite of meat and drank her entire ensure Addendum: 01/28/19 at 1532 by Maria G Browne RN Amended: Links added.
[2019-01-28] MEDS: polyethylene glycol 3350 17gm powd pack PO SCH (16:20)
[2019-01-28 18:00] VITALS: BP 127/68
--- NOTE | 2019-01-28 18:10 | NUR ---
Patient in room ORTHO 4018. I have received report from MAMTA GUO and had the opportunity to ask questions and assume patient care.
[2019-01-28] MEDS: traZODone 50mg tablet PO SCH (18:44)
[2019-01-28] MEDS: QUEtiapine 25mg tablet PO SCH (18:46)
[2019-01-28] MEDS: mirtazapine 15mg tablet PO SCH ×2 (18:50→21:24)
[2019-01-28] MEDS ORDERED: mirtazapine 15mg tablet PO SCH (21:00)
[2019-01-28 21:51] VITALS: BP 122/67
[2019-01-28] MEDS: LORazepam 0.5 MG tablet PO PRN (22:56)
[2019-01-28] MEDS: oxyCODONE IR 5mg (immed. release) tablet PO PRN (22:56)
[2019-01-29 06:00] VITALS: BP 122/66
--- NOTE | 2019-01-29 06:17 | NUR ---
Problems reprioritized. Patient report given, questions answered & plan of care reviewed with MAMTA GUO.
[2019-01-29] MEDS: albuterol 2.5 MG/3 ML nebule NEB PRN (06:51)
[2019-01-29] MEDS: budesonide 0.5mg/2ml UD nebule IH SCH ×2 (06:51→20:21)
[2019-01-29] MEDS: lactobacillus rhamnosus 10,000 MMU CELLS/CAPSULE PO SCH ×4 (07:45→19:43)
[2019-01-29] MEDS: aspirin 81mg tablet.DR PO SCH (07:45)
[2019-01-29] MEDS: citalopram 20mg tablet PO SCH (07:45)
[2019-01-29] MEDS: pantoprazole 40mg Tablet.DR PO SCH (07:45)
[2019-01-29] MEDS: docusate sod 250mg capsule PO SCH ×3 (07:45→19:43)
[2019-01-29] MEDS: lactose-reduced food (Ensure Enlive) - 237ml bottle PO SCH ×3 (07:46→18:00)
[2019-01-29] MEDS: OLANZAPINE 5 MG TABLET PO SCH (07:46)
[2019-01-29] MEDS: clonazePAM 0.5mg tablet PO SCH ×2 (07:46→19:44)
[2019-01-29] MEDS: lithium carbonate 150mg capsule PO SCH ×2 (07:46→19:44)
[2019-01-29] MEDS: folic acid 1mg tablet PO SCH (07:46)
[2019-01-29] MEDS: lamoTRIgine 100mg tablet PO SCH ×2 (07:46→19:44)
[2019-01-29] MEDS: multivitamins, therapeutics tablet PO SCH (07:47)
[2019-01-29] MEDS: acetaminophen 325mg tablet PO SCH ×2 (07:47→19:44)
[2019-01-29 10:00] VITALS: BP 116/73
[2019-01-29] MEDS: mineral oil/petrolatum, white cream 113gm jar TP SCH ×2 (11:58→19:45)
--- NOTE | 2019-01-29 13:37 | NUR ---
Follow up: Discussed with RN this morning regarding patient's PO intake of the oral nutrition supplement. Patient drank 100% of the ensure enlive this morning with encouragement from the RN. Pt only interested in drinking fluids at this time, will send flavor preference of strawberry and send two ensure enlive with each meal. D/w dietary. Per MD note patient will be started on remeron to increase appetite and help psych. Will continue to follow. Recommendations: 1) Continue lactose free pureed diet with thin liquids per MANAGER SQL recs 2) Continue Ensure Enlive TID, two with each meal 3) Wt per rx Addendum: 01/29/19 at [address] Amended: Links added.
--- NOTE | 2019-01-29 15:45 | NUR ---
I have received patient report from Soheila OLEARY
[2019-01-29 18:00] VITALS: BP 160/77
--- NOTE | 2019-01-29 18:13 | NUR ---
Patient report given to Sheyla OLEARY
--- NOTE | 2019-01-29 18:27 | NUR ---
Patient in room ORTHO 4018. I have received report from Dona OLEARY and had the opportunity to ask questions and assume patient care.
[2019-01-29] MEDS: traZODone 50mg tablet PO SCH (19:44)
[2019-01-29] MEDS: QUEtiapine 25mg tablet PO SCH (19:44)
[2019-01-29] MEDS: mirtazapine 15mg tablet PO SCH (20:02)
[2019-01-30 06:10] VITALS: BP 135/68
--- NOTE | 2019-01-30 06:18 | NUR ---
Problems reprioritized. Patient report given, questions answered & plan of care reviewed with Dona OLEARY.
--- NOTE | 2019-01-30 06:29 | NUR ---
Patient in room ORTHO 4018. I have received report from Sheyla OLEARY and had the opportunity to ask questions and assume patient care.
[2019-01-30] MEDS: lamoTRIgine 100mg tablet PO SCH ×2 (07:26→19:37)
[2019-01-30] MEDS: OLANZAPINE 5 MG TABLET PO SCH (07:26)
[2019-01-30] MEDS: lithium carbonate 150mg capsule PO SCH ×2 (07:26→19:38)
[2019-01-30] MEDS: lactobacillus rhamnosus 10,000 MMU CELLS/CAPSULE PO SCH ×2 (07:27→19:37)
[2019-01-30] MEDS: folic acid 1mg tablet PO SCH (07:27)
[2019-01-30] MEDS: pantoprazole 40mg Tablet.DR PO SCH (07:27)
[2019-01-30] MEDS: acetaminophen 325mg tablet PO SCH ×2 (07:27→19:39)
[2019-01-30] MEDS: citalopram 20mg tablet PO SCH (07:27)
[2019-01-30] MEDS: docusate sod 250mg capsule PO SCH ×2 (07:27→19:37)
[2019-01-30] MEDS: clonazePAM 0.5mg tablet PO SCH ×2 (07:27→19:38)
[2019-01-30] MEDS: multivitamins, therapeutics tablet PO SCH (07:27)
[2019-01-30] MEDS: aspirin 81mg tablet.DR PO SCH (07:28)
[2019-01-30] MEDS: lactose-reduced food (Ensure Enlive) - 237ml bottle PO SCH ×3 (08:00→18:00)
[2019-01-30 10:00] VITALS: BP 122/61
[2019-01-30] MEDS: budesonide 0.5mg/2ml UD nebule IH SCH ×2 (10:40→20:32)
[2019-01-30] MEDS: albuterol 2.5 MG/3 ML nebule NEB PRN (10:41)
[2019-01-30] MEDS: mineral oil/petrolatum, white cream 113gm jar TP SCH ×2 (12:33→19:40)
[2019-01-30] MEDS: polyethylene glycol 3350 17gm powd pack PO SCH (16:20)
[2019-01-30 18:00] VITALS: BP 110/54
--- NOTE | 2019-01-30 18:29 | NUR ---
Patient in room ORTHO 4018. I have received report from Dona OLEARY and had the opportunity to ask questions and assume patient care.
--- NOTE | 2019-01-30 18:30 | NUR ---
Patient report given to Sheyla
[2019-01-30] MEDS: traZODone 50mg tablet PO SCH (19:37)
[2019-01-30] MEDS: QUEtiapine 25mg tablet PO SCH (19:38)
[2019-01-30] MEDS: mirtazapine 15mg tablet PO SCH (19:38)
[2019-01-30] MEDS: megestrol acetate 400mg/10ml UD oral suspension PO SCH (19:39)
[2019-01-30 22:00] VITALS: BP 126/57
--- NOTE | 2019-01-31 06:23 | NUR ---
Problems reprioritized. Patient report given, questions answered & plan of care reviewed with Mary OLEARY.
[2019-01-31 06:42] VITALS: BP 116/64
[2019-01-31] MEDS: megestrol acetate 400mg/10ml UD oral suspension PO SCH ×2 (08:33→20:00)
[2019-01-31] MEDS: docusate sod 250mg capsule PO SCH ×2 (08:33→19:00)
[2019-01-31] MEDS: LORazepam 0.5 MG tablet PO PRN ×2 (08:33→17:04)
[2019-01-31] MEDS: aspirin 81mg tablet.DR PO SCH (08:33)
[2019-01-31] MEDS: lactobacillus rhamnosus 10,000 MMU CELLS/CAPSULE PO SCH ×2 (08:34→19:51)
[2019-01-31] MEDS: lamoTRIgine 100mg tablet PO SCH ×2 (08:34→19:53)
[2019-01-31] MEDS: lithium carbonate 150mg capsule PO SCH ×2 (08:34→19:52)
[2019-01-31] MEDS: folic acid 1mg tablet PO SCH (08:34)
[2019-01-31] MEDS: clonazePAM 0.5mg tablet PO SCH ×2 (08:34→19:52)
[2019-01-31] MEDS: lactose-reduced food (Ensure Enlive) - 237ml bottle PO SCH ×3 (08:35→17:58)
[2019-01-31] MEDS: multivitamins, therapeutics tablet PO SCH (08:35)
[2019-01-31] MEDS: acetaminophen 325mg tablet PO SCH ×2 (08:35→19:52)
[2019-01-31] MEDS: OLANZAPINE 5 MG TABLET PO SCH (08:35)
[2019-01-31] MEDS: mineral oil/petrolatum, white cream 113gm jar TP SCH ×2 (08:35→20:00)
[2019-01-31] MEDS: pantoprazole 40mg Tablet.DR PO SCH (08:35)
[2019-01-31] MEDS: citalopram 20mg tablet PO SCH (08:35)
[2019-01-31 12:38] VITALS: BP 136/61
[2019-01-31 18:00] VITALS: BP 164/112
[2019-01-31] MEDS: budesonide 0.5mg/2ml UD nebule IH SCH (19:34)
[2019-01-31] MEDS: traZODone 50mg tablet PO SCH (19:51)
[2019-01-31] MEDS: mirtazapine 15mg tablet PO SCH (19:51)
[2019-01-31] MEDS: QUEtiapine 25mg tablet PO SCH (19:52)
[2019-01-31 22:00] VITALS: BP 129/65
[2019-01-31] MEDS: oxyCODONE IR 5mg (immed. release) tablet PO PRN (22:53)
[2019-02-01 06:00] VITALS: BP 120/61
--- NOTE | 2019-02-01 06:25 | NUR ---
REPORT GIVEN TO MAMTA OLIVARES.
--- NOTE | 2019-02-01 06:33 | NUR ---
Patient in room ORTHO 4018. I have received report from Nidia OLEARY and had the opportunity to ask questions and assume patient care.
[2019-02-01 07:32] LABS: BASOPHILS % (AUTO) 0.6 % (0-1); EOSINOPHILS # (AUTO) 0.2 X10'3 (0-0.9); EOSINOPHILS % (AUTO) 2.6 % (0-6); HEMOGLOBIN 13.4 g/dl (12.0-16.0); LYMPHOCYTES # (AUTO) 1.2 X10'3 (1.1-4.8); MEAN CORPUSCULAR HGB CONC 32.6 g/dL (33.0-36.5); MEAN CORPUSCULAR VOLUME 104.3 FL (78-98); MEAN PLATELET VOLUME 8.2 FL (7.4-10.4); MONOCYTES # (AUTO) 0.6 X10'3 (0-0.9); MONOCYTES % (AUTO) 9.5 % (2-12); NEUTROPHILS # (AUTO) 4.5 X10'3 (1.8-7.7); NEUTROPHILS % (AUTO) 69.3 % (42-75); PLATELET COUNT 206 X10'3 (140-440); RED BLOOD COUNT 3.93 X10'6 (4.20-5.60); RED CELL DISTRIBUTION WIDTH 14.5 % (11.5-14.5); WHITE BLOOD COUNT 6.4 X10'3 (4.5-11.0)
[2019-02-01 07:40] LABS: ALANINE AMINOTRANSFERASE 25 U/L (12-78); ALBUMIN 3.4 G/DL (3.4-5.0); ALKALINE PHOSPHATASE 117 IU/L (46-116); ANION GAP 6 (8-16); ASPARTATE AMINO TRANSFERASE 16 U/L (10-37); BILIRUBIN,TOTAL 0.4 MG/DL (0.1-1.0); BLOOD UREA NITROGEN 24 MG/DL (7-18); CALCIUM 10.3 MG/DL (8.5-10.1); CHLORIDE 109 MMOL/L (99-107); CREATININE 1.41 MG/DL (0.40-0.90); GLUCOSE 82 MG/DL (70-104); MAGNESIUM 2.3 MG/DL (1.5-2.4); PHOSPHORUS 3.1 MG/DL (2.3-4.5); POTASSIUM 4.7 MMOL/L (3.5-5.1); SODIUM 145 MMOL/L (135-145); TOTAL PROTEIN 6.8 G/DL (6.4-8.2); eGFR 38 ML/MIN
[2019-02-01] MEDS: lactobacillus rhamnosus 10,000 MMU CELLS/CAPSULE PO SCH ×2 (07:51→19:26)
[2019-02-01] MEDS: clonazePAM 0.5mg tablet PO SCH ×2 (07:51→19:26)
[2019-02-01] MEDS: folic acid 1mg tablet PO SCH (07:51)
[2019-02-01] MEDS: LORazepam 0.5 MG tablet PO PRN (07:51)
[2019-02-01] MEDS: citalopram 20mg tablet PO SCH (07:51)
[2019-02-01] MEDS: pantoprazole 40mg Tablet.DR PO SCH (07:52)
[2019-02-01] MEDS: OLANZAPINE 5 MG TABLET PO SCH (07:52)
[2019-02-01] MEDS: acetaminophen 325mg tablet PO SCH ×2 (07:52→19:26)
[2019-02-01] MEDS: docusate sod 250mg capsule PO SCH ×2 (07:52→19:27)
[2019-02-01] MEDS: multivitamins, therapeutics tablet PO SCH (07:52)
[2019-02-01] MEDS: lithium carbonate 150mg capsule PO SCH ×2 (07:52→19:27)
[2019-02-01] MEDS: lamoTRIgine 100mg tablet PO SCH ×2 (07:52→19:26)
[2019-02-01] MEDS: mineral oil/petrolatum, white cream 113gm jar TP SCH ×2 (07:56→19:25)
[2019-02-01] MEDS: aspirin 81mg tablet.DR PO SCH (08:00)
[2019-02-01] MEDS: megestrol acetate 400mg/10ml UD oral suspension PO SCH ×2 (08:00→19:26)
[2019-02-01] MEDS: lactose-reduced food (Ensure Enlive) - 237ml bottle PO SCH ×3 (08:05→18:00)
[2019-02-01] MEDS: budesonide 0.5mg/2ml UD nebule IH SCH ×2 (09:30→20:19)
[2019-02-01 10:00] VITALS: BP 130/64
--- NOTE | 2019-02-01 10:27 | NUR ---
Reassessment: Pt PO fluctuates 25-50% avg meals w/ 25% two strawberry ensure enlives TIDWM likely meeting needs given current wt. Fluid-restriction has been d/c. Pt refused megace today per EMR. Per MD note encouraging eating at meals instead to snacks between for optimal PO. LBM 01/29. Will continue to monitor. Recommendations: 1) Continue lactose free pureed diet with thin liquids per BARTENDER SERVER recs 2) Continue strawberry Ensure Enlive TID, two with each meal 3) Wt per rx Addendum: 02/01/19 at [address] Amended: Links added. Addendum: 02/02/19 at [address] Correction: Pt PO fluctuates 0-25% avg but mostly refusing meals off and on past ~10 days w/ feeder only sips of strawberry ensure enlives TIDWM per RN today not meeting needs. Pt refused megace yesterday and is also receiving remeron. Per MD note encouraging eating at meals instead to snacks between for optimal PO. Pt last significant BM 01/26 w/ only small BMs since receiving colace BID but MoM PRN since 12/13 not given. RN and MD aware and addressing at this time. Pt ONS changed to one strawberry ensure enlive TIDWM since not drinking much; cottage cheese w/ fruit at breakfast, and magic cup BIDLD since seems to like colder foods per RN. Will continue to monitor for additional nutrient needs. Recommendations: 1) Continue lactose free pureed diet with thin liquids per BARTENDER SERVER recs 2) Continue strawberry Ensure Enlive x1 TID; magic cup BIDLD; see additional protein foods above 3) encourage PO 4) routine bowel care 5) Wt per rx
[2019-02-01] MEDS: polyethylene glycol 3350 17gm powd pack PO SCH (16:20)
[2019-02-01 18:00] VITALS: BP 124/76
--- NOTE | 2019-02-01 18:21 | NUR ---
Patient in room ORTHO 4018. I have received report from MAMTA OLIVARES and had the opportunity to ask questions and assume patient care.
--- NOTE | 2019-02-01 18:26 | NUR ---
Problems reprioritized. Patient report given, questions answered & plan of care reviewed with Sujata OLEARY.
[2019-02-01] MEDS: traZODone 50mg tablet PO SCH (19:26)
[2019-02-01] MEDS: mirtazapine 15mg tablet PO SCH (19:27)
[2019-02-01] MEDS: QUEtiapine 25mg tablet PO SCH (19:27)
[2019-02-01] MEDS: albuterol 2.5 MG/3 ML nebule NEB PRN (20:18)
[2019-02-02 06:00] VITALS: BP 94/49
--- NOTE | 2019-02-02 06:31 | NUR ---
Problems reprioritized. Patient report given, questions answered & plan of care reviewed with MAMTA OLIVARES.
[2019-02-02] MEDS: lactose-reduced food (Ensure Enlive) - 237ml bottle PO SCH ×3 (08:00→18:00)
[2019-02-02] MEDS: budesonide 0.5mg/2ml UD nebule IH SCH ×2 (09:11→19:54)
[2019-02-02] MEDS: citalopram 20mg tablet PO SCH (09:33)
[2019-02-02] MEDS: pantoprazole 40mg Tablet.DR PO SCH (09:33)
[2019-02-02] MEDS: lactobacillus rhamnosus 10,000 MMU CELLS/CAPSULE PO SCH ×2 (09:33→18:49)
[2019-02-02] MEDS: aspirin 81mg tablet.DR PO SCH (09:33)
[2019-02-02] MEDS: docusate sod 250mg capsule PO SCH ×2 (09:33→18:48)
[2019-02-02] MEDS: lithium carbonate 150mg capsule PO SCH ×2 (09:34→20:06)
[2019-02-02] MEDS: folic acid 1mg tablet PO SCH (09:34)
[2019-02-02] MEDS: clonazePAM 0.5mg tablet PO SCH ×2 (09:34→20:07)
[2019-02-02] MEDS: lamoTRIgine 100mg tablet PO SCH ×2 (09:34→18:49)
[2019-02-02] MEDS: multivitamins, therapeutics tablet PO SCH (09:35)
[2019-02-02] MEDS: megestrol acetate 400mg/10ml UD oral suspension PO SCH ×2 (09:35→20:07)
[2019-02-02] MEDS: OLANZAPINE 5 MG TABLET PO SCH (09:36)
[2019-02-02] MEDS: acetaminophen 325mg tablet PO SCH ×2 (09:36→20:07)
[2019-02-02 10:00] VITALS: BP 128/62
[2019-02-02] MEDS: mineral oil/petrolatum, white cream 113gm jar TP SCH ×2 (10:00→20:09)
[2019-02-02] MEDS: LORazepam 0.5 MG tablet PO PRN (11:17)
[2019-02-02 17:00] VITALS: BP 114/81
[2019-02-02] MEDS: QUEtiapine 25mg tablet PO SCH (18:49)
[2019-02-02] MEDS: traZODone 50mg tablet PO SCH (20:05)
[2019-02-02] MEDS: mirtazapine 15mg tablet PO SCH (20:06)
[2019-02-02 22:03] VITALS: BP 108/63
[2019-02-02] MEDS: oxyCODONE IR 5mg (immed. release) tablet PO PRN (22:33)
[2019-02-03] MEDS: LORazepam 0.5 MG tablet PO PRN ×2 (04:50→11:31)
--- NOTE | 2019-02-03 05:42 | NUR ---
In agreement for all charting and medication administration reviewed for this shift by Catrina OLEARY.
[2019-02-03 06:00] VITALS: BP 116/64
--- NOTE | 2019-02-03 06:14 | NUR ---
Gave report to Hayden OLEARY,
--- NOTE | 2019-02-03 06:15 | NUR ---
Patient in room ORTHO 4018. I have received report from QIANA OLEARY AND JARROD RN and had the opportunity to ask questions and assume patient care.
[2019-02-03] MEDS: acetaminophen 325mg tablet PO SCH ×2 (08:00→19:34)
[2019-02-03] MEDS: lactose-reduced food (Ensure Enlive) - 237ml bottle PO SCH ×3 (08:00→18:00)
[2019-02-03] MEDS: mineral oil/petrolatum, white cream 113gm jar TP SCH ×2 (08:00→20:00)
[2019-02-03] MEDS: budesonide 0.5mg/2ml UD nebule IH SCH ×2 (09:00→19:19)
[2019-02-03 10:00] VITALS: BP 130/81
[2019-02-03] MEDS: megestrol acetate 400mg/10ml UD oral suspension PO SCH ×2 (11:30→19:36)
[2019-02-03] MEDS: lithium carbonate 150mg capsule PO SCH ×2 (11:30→19:33)
[2019-02-03] MEDS: clonazePAM 0.5mg tablet PO SCH ×2 (11:30→19:34)
[2019-02-03] MEDS: lactobacillus rhamnosus 10,000 MMU CELLS/CAPSULE PO SCH ×2 (11:30→19:33)
[2019-02-03] MEDS: citalopram 20mg tablet PO SCH (11:30)
[2019-02-03] MEDS: multivitamins, therapeutics tablet PO SCH (11:30)
[2019-02-03] MEDS: folic acid 1mg tablet PO SCH (11:30)
[2019-02-03] MEDS: aspirin 81mg tablet.DR PO SCH (11:31)
[2019-02-03] MEDS: OLANZAPINE 5 MG TABLET PO SCH (11:31)
[2019-02-03] MEDS: docusate sod 250mg capsule PO SCH ×2 (11:31→19:34)
[2019-02-03] MEDS: lamoTRIgine 100mg tablet PO SCH ×2 (11:32→19:34)
[2019-02-03] MEDS: pantoprazole 40mg Tablet.DR PO SCH (11:34)
--- NOTE | 2019-02-03 12:15 | NUR ---
Reassessment: Pt advanced to mechanical soft diet since refused pureed meals; only on pureed diet since refused to put in top dentures per FOOD AND BEVERAGE CHECKER. PO continues to be poor 0-25% meals sipping ensures. ROSALINE [email or web address] to discuss possible long-term nutrition strategies given wt loss this admit and poor PO. Awaiting MD call. Pt unlikely to be good PEG/corpak candidate given ALOC/refusal of care though EN would be most optimal to meet nutrition needs and has no IV access for DEX. Per RN pt sometimes afraid to drink teressa irina since its "fattening" and poor PO may also be pscyh hx related. Only small BM since 01/26 likely constipation also factor and would benefit from additional routine bowel care which ROSALINE d/w RN. Regular shake TIDWM added for additional kcal needs since pt likes cold food/drinks. Pt also sleeping off and on per RN sometimes awake at night and sleeping through meals which may also be effecting PO. Will continue to monitor. Recommendations: 1) Continue mechanical soft diet per MD 2) Continue strawberry Ensure Enlive x1 TID; magic cup BIDLD; cold milkshake TID for additional kcals 3) encourage PO 4) routine bowel care 5) Weekly wts Addendum: 02/03/19 at [address] Amended: Links added.
[2019-02-03] MEDS: polyethylene glycol 3350 17gm powd pack PO SCH (16:20)
[2019-02-03 18:00] VITALS: BP 116/65
--- NOTE | 2019-02-03 18:11 | NUR ---
Problems reprioritized. Patient report given, questions answered & plan of care reviewed with QIANA OLEARY AND JARROD RN.
--- NOTE | 2019-02-03 18:32 | NUR ---
Received report from Hayden OLEARY, assumed care of patient with Catrina OLEARY.
[2019-02-03] MEDS: albuterol 2.5 MG/3 ML nebule NEB PRN (19:19)
[2019-02-03] MEDS: traZODone 50mg tablet PO SCH (19:34)
[2019-02-03] MEDS: QUEtiapine 25mg tablet PO SCH (19:34)
[2019-02-03] MEDS: mirtazapine 15mg tablet PO SCH (20:57)
[2019-02-03] MEDS: oxyCODONE IR 5mg (immed. release) tablet PO PRN (21:56)
[2019-02-03 22:13] VITALS: BP 92/61
--- NOTE | 2019-02-04 06:06 | NUR ---
In agreement for all charting and medication administration reviewed for this shift by Catrina OLEARY.
--- NOTE | 2019-02-04 06:08 | NUR ---
Gave report to MAMTA Blake.
--- NOTE | 2019-02-04 06:11 | NUR ---
Patient in room ORTHO 4018. I have received report from QIANA OLEARY AND JARROD RN and had the opportunity to ask questions and assume patient care.
[2019-02-04] MEDS: budesonide 0.5mg/2ml UD nebule IH SCH ×2 (07:59→20:20)
[2019-02-04] MEDS: megestrol acetate 400mg/10ml UD oral suspension PO SCH ×3 (08:00→19:12)
[2019-02-04] MEDS: citalopram 20mg tablet PO SCH (08:00)
[2019-02-04] MEDS: aspirin 81mg tablet.DR PO SCH (08:34)
[2019-02-04] MEDS: pantoprazole 40mg Tablet.DR PO SCH (08:34)
[2019-02-04] MEDS: lactobacillus rhamnosus 10,000 MMU CELLS/CAPSULE PO SCH ×2 (08:35→19:07)
[2019-02-04] MEDS: docusate sod 250mg capsule PO SCH ×2 (08:35→19:06)
[2019-02-04] MEDS: OLANZAPINE 5 MG TABLET PO SCH (08:35)
[2019-02-04] MEDS: lamoTRIgine 100mg tablet PO SCH ×2 (08:35→19:06)
[2019-02-04] MEDS: folic acid 1mg tablet PO SCH (08:35)
[2019-02-04] MEDS: clonazePAM 0.5mg tablet PO SCH ×2 (08:35→19:06)
[2019-02-04] MEDS: lithium carbonate 150mg capsule PO SCH ×2 (08:35→19:06)
[2019-02-04] MEDS: multivitamins, therapeutics tablet PO SCH (08:36)
[2019-02-04] MEDS: mineral oil/petrolatum, white cream 113gm jar TP SCH ×2 (08:36→19:47)
[2019-02-04] MEDS: acetaminophen 325mg tablet PO SCH ×2 (08:36→19:07)
[2019-02-04] MEDS: lactose-reduced food (Ensure Enlive) - 237ml bottle PO SCH ×3 (08:39→18:45)
[2019-02-04 10:00] VITALS: BP 118/54
[2019-02-04 17:00] VITALS: BP 124/56
--- NOTE | 2019-02-04 18:15 | NUR ---
Patient in room ORTHO 4018. I have received report from Hayden OLEARY and had the opportunity to ask questions and assume patient care.
--- NOTE | 2019-02-04 18:15 | NUR ---
Problems reprioritized. Patient report given, questions answered & plan of care reviewed with ESDRAS OLEARY.
[2019-02-04] MEDS: QUEtiapine 25mg tablet PO SCH (19:05)
[2019-02-04] MEDS: traZODone 50mg tablet PO SCH (19:06)
[2019-02-04] MEDS: albuterol 2.5 MG/3 ML nebule NEB PRN (20:20)
[2019-02-04] MEDS: mirtazapine 15mg tablet PO SCH (20:47)
[2019-02-04 21:00] VITALS: BP 92/57
[2019-02-05 06:00] VITALS: BP 127/49
--- NOTE | 2019-02-05 06:08 | NUR ---
Patient in room ORTHO 4018. I have received report from ESDRAS OLEARY and had the opportunity to ask questions and assume patient care.
--- NOTE | 2019-02-05 06:11 | NUR ---
Problems reprioritized. Patient report given, questions answered & plan of care reviewed with Hayden OLEARY.
[2019-02-05] MEDS: megestrol acetate 400mg/10ml UD oral suspension PO SCH ×2 (08:00→20:00)
[2019-02-05] MEDS: docusate sod 250mg capsule PO SCH ×2 (08:07→20:50)
[2019-02-05] MEDS: aspirin 81mg tablet.DR PO SCH (08:07)
[2019-02-05] MEDS: lactobacillus rhamnosus 10,000 MMU CELLS/CAPSULE PO SCH ×2 (08:07→20:50)
[2019-02-05] MEDS: pantoprazole 40mg Tablet.DR PO SCH (08:07)
[2019-02-05] MEDS: folic acid 1mg tablet PO SCH (08:07)
[2019-02-05] MEDS: citalopram 20mg tablet PO SCH (08:07)
[2019-02-05] MEDS: multivitamins, therapeutics tablet PO SCH (08:08)
[2019-02-05] MEDS: lamoTRIgine 100mg tablet PO SCH ×2 (08:08→20:51)
[2019-02-05] MEDS: oxyCODONE IR 5mg (immed. release) tablet PO PRN (08:08)
[2019-02-05] MEDS: acetaminophen 325mg tablet PO SCH ×2 (08:08→20:52)
[2019-02-05] MEDS: lithium carbonate 150mg capsule PO SCH ×2 (08:08→20:51)
[2019-02-05] MEDS: clonazePAM 0.5mg tablet PO SCH ×2 (08:08→20:51)
[2019-02-05] MEDS: OLANZAPINE 5 MG TABLET PO SCH (08:08)
[2019-02-05] MEDS: mineral oil/petrolatum, white cream 113gm jar TP SCH ×2 (08:09→20:00)
[2019-02-05] MEDS: lactose-reduced food (Ensure Enlive) - 237ml bottle PO SCH ×3 (08:11→20:50)
[2019-02-05] MEDS: budesonide 0.5mg/2ml UD nebule IH SCH ×2 (08:21→20:15)
[2019-02-05] MEDS: albuterol 2.5 MG/3 ML nebule NEB PRN (08:22)
[2019-02-05 10:00] VITALS: BP 119/62
--- NOTE | 2019-02-05 11:53 | NUR ---
Reassessment: Pt continues with poor PO intake 0-25% of meals with 0-100% PO intake of ONS. Poor PO intake likely multifactorial with current mentation as well as constipation. LBM 02/01, documented as small BMs. Pt receiving routine Colace and documented as refusing Miralax per med list. Recommend prune juice with lunch today, d/w dietary. Pt with active order for Megace and Remeron to improve appetite however pt has been refusing Megace. Pt with intermittent O2 and awaiting placement per MD notes. Will continue to follow closely and make recommendations as appropriate. Recommendations: 1) Continue mechanical soft diet per MD 2) Continue strawberry Ensure Enlive x1 TID; magic cup BIDLD; cold milkshake TID for additional kcals 3) encourage PO 4) routine bowel care 5) Weekly wts Addendum: 02/05/19 at [address] Amended: Links added.
--- NOTE | 2019-02-05 13:02 | NUR ---
Received TF call from RN who reports pt likes and is drinking the milkshakes TID. RN states pt requesting chicken fettuccine, d/w dietary who states they are able to make that and send with dinner tonight. Discussed BM pattern with RN who states pt c/o abdominal discomfort today and is due for MoM, will also offer prune juice if pt declines MoM. Will continue to follow. Addendum: 02/05/19 at [address] Amended: Links added.
[2019-02-05 15:34] VITALS: BP 119/62
[2019-02-05] MEDS: polyethylene glycol 3350 17gm powd pack PO SCH (16:51)
[2019-02-05 17:00] VITALS: BP 137/69
--- NOTE | 2019-02-05 18:05 | NUR ---
Problems reprioritized. Patient report given, questions answered & plan of care reviewed with OSCAR OLEARY.
--- NOTE | 2019-02-05 18:30 | NUR ---
Patient in room ORTHO 4018. I have received report from MAMTA Blake and had the opportunity to ask questions and assume patient care.
[2019-02-05] MEDS: traZODone 50mg tablet PO SCH (20:50)
[2019-02-05] MEDS: QUEtiapine 25mg tablet PO SCH (20:51)
[2019-02-05] MEDS: mirtazapine 15mg tablet PO SCH (20:52)
[2019-02-05 22:00] VITALS: BP 123/57
[2019-02-06 06:00] VITALS: BP 131/67
--- NOTE | 2019-02-06 06:33 | NUR ---
Problems reprioritized. Patient report given, questions answered & plan of care reviewed with MAMTA Mora.
--- NOTE | 2019-02-06 06:52 | NUR ---
Patient in room ORTHO 4018. I have received report from Loren OLEARY and had the opportunity to ask questions and assume patient care.
[2019-02-06] MEDS: docusate sod 250mg capsule PO SCH ×2 (08:00→19:53)
[2019-02-06] MEDS: budesonide 0.5mg/2ml UD nebule IH SCH ×2 (08:30→20:13)
[2019-02-06] MEDS: OLANZAPINE 5 MG TABLET PO SCH (08:33)
[2019-02-06] MEDS: citalopram 20mg tablet PO SCH (08:34)
[2019-02-06] MEDS: clonazePAM 0.5mg tablet PO SCH ×2 (08:34→19:59)
[2019-02-06] MEDS: folic acid 1mg tablet PO SCH (08:35)
[2019-02-06] MEDS: lithium carbonate 150mg capsule PO SCH ×2 (08:35→19:53)
[2019-02-06] MEDS: lamoTRIgine 100mg tablet PO SCH ×2 (08:35→19:53)
[2019-02-06] MEDS: aspirin 81mg tablet.DR PO SCH (08:36)
[2019-02-06] MEDS: lactobacillus rhamnosus 10,000 MMU CELLS/CAPSULE PO SCH ×2 (08:36→19:53)
[2019-02-06] MEDS: multivitamins, therapeutics tablet PO SCH (08:36)
[2019-02-06] MEDS: pantoprazole 40mg Tablet.DR PO SCH (08:36)
[2019-02-06] MEDS: megestrol acetate 400mg/10ml UD oral suspension PO SCH ×2 (08:37→19:54)
[2019-02-06] MEDS: acetaminophen 325mg tablet PO SCH ×2 (08:37→19:52)
[2019-02-06] MEDS: mineral oil/petrolatum, white cream 113gm jar TP SCH ×2 (08:40→20:04)
[2019-02-06] MEDS: lactose-reduced food (Ensure Enlive) - 237ml bottle PO SCH ×3 (08:41→18:08)
[2019-02-06 10:00] VITALS: BP 99/44
[2019-02-06 10:21] VITALS: BP 135/59
[2019-02-06 17:00] VITALS: BP 121/71
--- NOTE | 2019-02-06 18:07 | NUR ---
Problems reprioritized. Patient report given, questions answered & plan of care reviewed with Leydi OLEARY.
--- NOTE | 2019-02-06 18:10 | NUR ---
Patient in room ORTHO 4024A. I have received report from MAMTA Mora and had the opportunity to ask questions and assume patient care.
[2019-02-06] MEDS: QUEtiapine 25mg tablet PO SCH (19:52)
[2019-02-06] MEDS: traZODone 50mg tablet PO SCH (19:53)
[2019-02-06] MEDS: mirtazapine 15mg tablet PO SCH (21:00)
[2019-02-06 22:00] VITALS: BP 116/65
--- NOTE | 2019-02-07 06:18 | NUR ---
Problems reprioritized. Patient report given, questions answered & plan of care reviewed with MAMAT Grace.
--- NOTE | 2019-02-07 06:50 | NUR ---
Received report from Magdalena OLEARY
[2019-02-07 07:24] VITALS: BP 124/66
[2019-02-07] MEDS: pantoprazole 40mg Tablet.DR PO SCH (07:30)
[2019-02-07] MEDS: lactose-reduced food (Ensure Enlive) - 237ml bottle PO SCH ×3 (08:00→18:39)
[2019-02-07] MEDS: megestrol acetate 400mg/10ml UD oral suspension PO SCH ×2 (08:00→20:00)
[2019-02-07] MEDS: mineral oil/petrolatum, white cream 113gm jar TP SCH ×2 (08:00→20:00)
[2019-02-07] MEDS: budesonide 0.5mg/2ml UD nebule IH SCH ×2 (08:11→20:12)
[2019-02-07] MEDS: docusate sod 250mg capsule PO SCH ×2 (08:58→19:00)
[2019-02-07] MEDS: aspirin 81mg tablet.DR PO SCH (08:58)
[2019-02-07] MEDS: OLANZAPINE 5 MG TABLET PO SCH (08:58)
[2019-02-07] MEDS: multivitamins, therapeutics tablet PO SCH (08:58)
[2019-02-07] MEDS: lamoTRIgine 100mg tablet PO SCH ×2 (08:58→19:21)
[2019-02-07] MEDS: lactobacillus rhamnosus 10,000 MMU CELLS/CAPSULE PO SCH ×2 (08:58→19:21)
[2019-02-07] MEDS: citalopram 20mg tablet PO SCH (08:58)
[2019-02-07] MEDS: folic acid 1mg tablet PO SCH (08:58)
[2019-02-07] MEDS: lithium carbonate 150mg capsule PO SCH ×2 (08:59→21:25)
[2019-02-07] MEDS: acetaminophen 325mg tablet PO SCH ×2 (08:59→21:27)
[2019-02-07] MEDS: clonazePAM 0.5mg tablet PO SCH ×2 (09:06→21:25)
[2019-02-07 10:00] VITALS: BP 96/50
[2019-02-07] MEDS: polyethylene glycol 3350 17gm powd pack PO SCH (16:20)
[2019-02-07 18:00] VITALS: BP 122/69
[2019-02-07] MEDS: traZODone 50mg tablet PO SCH (19:21)
[2019-02-07] MEDS: QUEtiapine 25mg tablet PO SCH (19:22)
[2019-02-07] MEDS: albuterol 2.5 MG/3 ML nebule NEB PRN (20:12)
[2019-02-07] MEDS: mirtazapine 15mg tablet PO SCH (21:29)
[2019-02-07] MEDS: latanoprost 0.005% 2.5ml ophthalmic drops EACHEYE SCH (21:46)
[2019-02-07 22:00] VITALS: BP 136/64
[2019-02-08 06:00] VITALS: BP 115/62
--- NOTE | 2019-02-08 06:47 | NUR ---
Patient in room ORTHO 4018. I have received report from Charley OLEARY and had the opportunity to ask questions and assume patient care.
[2019-02-08] MEDS: albuterol 2.5 MG/3 ML nebule NEB PRN (07:53)
[2019-02-08] MEDS: budesonide 0.5mg/2ml UD nebule IH SCH ×2 (07:53→20:30)
[2019-02-08] MEDS: megestrol acetate 400mg/10ml UD oral suspension PO SCH ×2 (08:29→20:06)
[2019-02-08] MEDS: multivitamins, therapeutics tablet PO SCH (08:32)
[2019-02-08] MEDS: clonazePAM 0.5mg tablet PO SCH ×2 (08:32→19:51)
[2019-02-08] MEDS: OLANZAPINE 5 MG TABLET PO SCH (08:32)
[2019-02-08] MEDS: lithium carbonate 150mg capsule PO SCH ×2 (08:32→19:51)
[2019-02-08] MEDS: lamoTRIgine 100mg tablet PO SCH ×2 (08:32→19:51)
[2019-02-08] MEDS: docusate sod 250mg capsule PO SCH ×2 (08:33→19:52)
[2019-02-08] MEDS: aspirin 81mg tablet.DR PO SCH (08:33)
[2019-02-08] MEDS: lactobacillus rhamnosus 10,000 MMU CELLS/CAPSULE PO SCH ×2 (08:33→19:52)
[2019-02-08] MEDS: acetaminophen 325mg tablet PO SCH ×2 (08:34→19:52)
[2019-02-08] MEDS: citalopram 20mg tablet PO SCH (08:34)
[2019-02-08] MEDS: folic acid 1mg tablet PO SCH (08:34)
[2019-02-08] MEDS: pantoprazole 40mg Tablet.DR PO SCH (08:35)
[2019-02-08] MEDS: lactose-reduced food (Ensure Enlive) - 237ml bottle PO SCH ×3 (08:36→18:03)
[2019-02-08] MEDS: mineral oil/petrolatum, white cream 113gm jar TP SCH ×2 (08:36→20:07)
[2019-02-08 10:00] VITALS: BP 121/76
--- NOTE | 2019-02-08 17:01 | NUR ---
Reassessment: Pt PO remains low 25% avg meals. Per RN was able to get pt to take stool softener along w/ megace and remeron. Pt LBM documented 02/01 but likely 01/26 given description. Receiving colace, probiotic, and per RN also attempt to give miralax today. Power pudding at dinner added for additional GI needs but likely needs additional bowel care medications for constipation. Will continue to monitor. Recommendations: 1) Continue mechanical soft diet per MD 2) Continue strawberry Ensure Enlive x1 TID; magic cup BIDLD; cold milkshake TID for additional kcals 3) encourage PO 4) additional routine bowel care; power pudding at dinner 5) Weekly wts Addendum: 02/08/19 at [address] Amended: Links added.
[2019-02-08 18:00] VITALS: BP 131/62
--- NOTE | 2019-02-08 18:19 | NUR ---
Problems reprioritized. Patient report given, questions answered & plan of care reviewed with Nidia OLEARY.
--- NOTE | 2019-02-08 18:22 | NUR ---
report rec'd from daphnie Mora.
[2019-02-08] MEDS: traZODone 50mg tablet PO SCH (19:51)
[2019-02-08] MEDS: QUEtiapine 25mg tablet PO SCH (19:51)
[2019-02-08] MEDS: mirtazapine 15mg tablet PO SCH (19:55)
[2019-02-08] MEDS: latanoprost 0.005% 2.5ml ophthalmic drops EACHEYE SCH (20:05)
[2019-02-08 22:00] VITALS: BP 124/60
[2019-02-09] MEDS: LORazepam 0.5 MG tablet PO PRN ×2 (02:47→15:54)
[2019-02-09] MEDS: oxyCODONE IR 5mg (immed. release) tablet PO PRN (02:55)
[2019-02-09 06:00] VITALS: BP 121/74
--- NOTE | 2019-02-09 06:15 | NUR ---
report received from MAMTA Jacob
--- NOTE | 2019-02-09 06:34 | NUR ---
REPORT GIVEN TO MAMTA RASHEED.
[2019-02-09] MEDS: budesonide 0.5mg/2ml UD nebule IH SCH ×2 (07:50→19:17)
[2019-02-09] MEDS: mineral oil/petrolatum, white cream 113gm jar TP SCH ×2 (08:00→19:27)
[2019-02-09] MEDS: lactose-reduced food (Ensure Enlive) - 237ml bottle PO SCH ×3 (08:00→18:00)
[2019-02-09] MEDS: megestrol acetate 400mg/10ml UD oral suspension PO SCH ×3 (08:00→19:28)
[2019-02-09] MEDS: multivitamins, therapeutics tablet PO SCH (09:10)
[2019-02-09] MEDS: pantoprazole 40mg Tablet.DR PO SCH (09:11)
[2019-02-09] MEDS: folic acid 1mg tablet PO SCH (09:11)
[2019-02-09] MEDS: lactobacillus rhamnosus 10,000 MMU CELLS/CAPSULE PO SCH ×2 (09:11→19:26)
[2019-02-09] MEDS: docusate sod 250mg capsule PO SCH ×2 (09:11→19:28)
[2019-02-09] MEDS: OLANZAPINE 5 MG TABLET PO SCH (09:11)
[2019-02-09] MEDS: acetaminophen 325mg tablet PO SCH ×2 (09:12→19:28)
[2019-02-09] MEDS: lithium carbonate 150mg capsule PO SCH ×2 (09:13→19:27)
[2019-02-09] MEDS: aspirin 81mg tablet.DR PO SCH (09:13)
[2019-02-09] MEDS: lamoTRIgine 100mg tablet PO SCH ×2 (09:13→19:26)
[2019-02-09] MEDS: citalopram 20mg tablet PO SCH (09:13)
[2019-02-09] MEDS: clonazePAM 0.5mg tablet PO SCH ×2 (09:14→19:26)
[2019-02-09 10:00] VITALS: BP 142/75
--- NOTE | 2019-02-09 15:42 | NUR ---
Paged RT twice. Pt requests breathing treatment.
[2019-02-09] MEDS: polyethylene glycol 3350 17gm powd pack PO SCH (16:20)
[2019-02-09 18:00] VITALS: BP 107/50
--- NOTE | 2019-02-09 18:17 | NUR ---
Report given to MAMTA Jacob
--- NOTE | 2019-02-09 18:30 | NUR ---
REPORT REC'D FROM MAMTA RASHEED.
[2019-02-09] MEDS: albuterol 2.5 MG/3 ML nebule NEB PRN (19:17)
[2019-02-09] MEDS: traZODone 50mg tablet PO SCH (19:26)
[2019-02-09] MEDS: QUEtiapine 25mg tablet PO SCH (19:26)
[2019-02-09] MEDS: mirtazapine 15mg tablet PO SCH (19:26)
[2019-02-09] MEDS: latanoprost 0.005% 2.5ml ophthalmic drops EACHEYE SCH (19:27)
[2019-02-09 22:00] VITALS: BP 153/93
--- NOTE | 2019-02-09 22:18 | NUR ---
pt states that her pain is 8/10 but refuses to take pain medicine stating "i didnt ask for it, i dont want it."
[2019-02-10 06:00] VITALS: BP 131/72
--- NOTE | 2019-02-10 06:11 | NUR ---
REPORT GIVEN TO MAMTA WALKER.
--- NOTE | 2019-02-10 06:50 | NUR ---
Patient in room ORTHO 4018. I have received report from Nidia OLEARY and had the opportunity to ask questions and assume patient care.
[2019-02-10] MEDS: albuterol 2.5 MG/3 ML nebule NEB PRN ×4 (07:35→20:00)
[2019-02-10] MEDS: budesonide 0.5mg/2ml UD nebule IH SCH ×2 (07:36→20:00)
[2019-02-10] MEDS: lactose-reduced food (Ensure Enlive) - 237ml bottle PO SCH ×3 (07:54→18:00)
[2019-02-10] MEDS: mineral oil/petrolatum, white cream 113gm jar TP SCH ×2 (07:54→20:42)
[2019-02-10] MEDS: lithium carbonate 150mg capsule PO SCH ×2 (07:58→20:31)
[2019-02-10] MEDS: polyethylene glycol 3350 17gm powd pack PO SCH (07:58)
[2019-02-10] MEDS: OLANZAPINE 5 MG TABLET PO SCH (07:58)
[2019-02-10] MEDS: lamoTRIgine 100mg tablet PO SCH ×2 (07:58→19:02)
[2019-02-10] MEDS: megestrol acetate 400mg/10ml UD oral suspension PO SCH ×3 (07:58→21:02)
[2019-02-10] MEDS: clonazePAM 0.5mg tablet PO SCH ×2 (07:59→20:30)
[2019-02-10] MEDS: citalopram 20mg tablet PO SCH (07:59)
[2019-02-10] MEDS: pantoprazole 40mg Tablet.DR PO SCH (08:01)
[2019-02-10] MEDS: multivitamins, therapeutics tablet PO SCH (08:02)
[2019-02-10] MEDS: acetaminophen 325mg tablet PO SCH ×2 (08:02→20:31)
[2019-02-10] MEDS: aspirin 81mg tablet.DR PO SCH (08:02)
[2019-02-10] MEDS: lactobacillus rhamnosus 10,000 MMU CELLS/CAPSULE PO SCH ×2 (08:03→19:02)
[2019-02-10] MEDS: folic acid 1mg tablet PO SCH (08:03)
[2019-02-10] MEDS: docusate sod 250mg capsule PO SCH ×2 (08:04→19:02)
[2019-02-10 10:00] VITALS: BP 87/54
[2019-02-10] MEDS: lactulose 20gm/30ml cup PO SCH ×2 (13:01→20:00)
[2019-02-10] MEDS: LORazepam 0.5 MG tablet PO PRN (16:42)
[2019-02-10 18:00] VITALS: BP 118/54
--- NOTE | 2019-02-10 18:05 | NUR ---
Problems reprioritized. Patient report given, questions answered & plan of care reviewed with Raven OLEARY.
[2019-02-10] MEDS: QUEtiapine 25mg tablet PO SCH (19:02)
[2019-02-10] MEDS: traZODone 50mg tablet PO SCH (19:02)
[2019-02-10] MEDS: mirtazapine 15mg tablet PO SCH (20:31)
[2019-02-10] MEDS: latanoprost 0.005% 2.5ml ophthalmic drops EACHEYE SCH (20:44)
[2019-02-10 22:00] VITALS: BP 97/60
[2019-02-11] MEDS: lactulose 20gm/30ml cup PO SCH ×2 (02:00→08:00)
[2019-02-11 06:00] VITALS: BP 132/69
[2019-02-11 06:43] LABS: BASOPHILS % (AUTO) 0.3 % (0-1); EOSINOPHILS # (AUTO) 0.2 X10'3 (0-0.9); EOSINOPHILS % (AUTO) 3.7 % (0-6); HEMATOCRIT 34.9 % (35.0-45.0); HEMOGLOBIN 11.4 g/dl (12.0-16.0); LYMPHOCYTES # (AUTO) 1.2 X10'3 (1.1-4.8); LYMPHOCYTES % (AUTO) 20.9 % (21-51); MEAN CORPUSCULAR HEMOGLOBIN 33.5 PG (27.0-31.0); MEAN CORPUSCULAR HGB CONC 32.8 g/dL (33.0-36.5); MEAN PLATELET VOLUME 7.8 FL (7.4-10.4); MONOCYTES # (AUTO) 0.4 X10'3 (0-0.9); MONOCYTES % (AUTO) 7.5 % (2-12); NEUTROPHILS # (AUTO) 3.8 X10'3 (1.8-7.7); NEUTROPHILS % (AUTO) 67.6 % (42-75); PLATELET COUNT 192 X10'3 (140-440); RED BLOOD COUNT 3.42 X10'6 (4.20-5.60); RED CELL DISTRIBUTION WIDTH 13.6 % (11.5-14.5); WHITE BLOOD COUNT 5.6 X10'3 (4.5-11.0)
[2019-02-11 07:03] LABS: ALANINE AMINOTRANSFERASE 19 U/L (12-78); ALBUMIN 3.1 G/DL (3.4-5.0); ALBUMIN/GLOBULIN RATIO 1.1 (1.1-1.5); ALKALINE PHOSPHATASE 82 IU/L (46-116); ANION GAP 8 (8-16); ASPARTATE AMINO TRANSFERASE 17 U/L (10-37); BILIRUBIN,TOTAL 0.4 MG/DL (0.1-1.0); BLOOD UREA NITROGEN 21 MG/DL (7-18); BUN/CREATININE RATIO 16.5 (6.6-38.0); CALCIUM 9.7 MG/DL (8.5-10.1); CHLORIDE 110 MMOL/L (99-107); CREATININE 1.27 MG/DL (0.40-0.90); GLUCOSE 87 MG/DL (70-104); MAGNESIUM 2.3 MG/DL (1.5-2.4); PHOSPHORUS 3.2 MG/DL (2.3-4.5); POTASSIUM 4.4 MMOL/L (3.5-5.1); SODIUM 146 MMOL/L (135-145); TOTAL CARBON DIOXIDE 28.1 MMOL/L (24-32); eGFR 42 ML/MIN
[2019-02-11] MEDS: megestrol acetate 400mg/10ml UD oral suspension PO SCH ×4 (08:00→20:26)
[2019-02-11] MEDS: lactose-reduced food (Ensure Enlive) - 237ml bottle PO SCH ×3 (08:00→18:04)
[2019-02-11] MEDS: mineral oil/petrolatum, white cream 113gm jar TP SCH ×3 (08:00→22:00)
[2019-02-11] MEDS: budesonide 0.5mg/2ml UD nebule IH SCH ×2 (08:34→19:41)
[2019-02-11 10:00] VITALS: BP 138/57
[2019-02-11] MEDS: polyethylene glycol 3350 17gm powd pack PO SCH (10:00)
[2019-02-11] MEDS: OLANZAPINE 5 MG TABLET PO SCH (10:00)
[2019-02-11] MEDS: clonazePAM 0.5mg tablet PO SCH ×2 (10:01→20:20)
[2019-02-11] MEDS: docusate sod 250mg capsule PO SCH ×4 (10:01→20:27)
[2019-02-11] MEDS: lamoTRIgine 100mg tablet PO SCH ×2 (10:01→20:17)
[2019-02-11] MEDS: lithium carbonate 150mg capsule PO SCH ×2 (10:02→20:19)
[2019-02-11] MEDS: acetaminophen 325mg tablet PO SCH ×2 (10:03→20:20)
[2019-02-11] MEDS: multivitamins, therapeutics tablet PO SCH (10:03)
[2019-02-11] MEDS: folic acid 1mg tablet PO SCH (10:04)
[2019-02-11] MEDS: citalopram 20mg tablet PO SCH (10:05)
[2019-02-11] MEDS: aspirin 81mg tablet.DR PO SCH (10:05)
[2019-02-11] MEDS: pantoprazole 40mg Tablet.DR PO SCH (10:05)
[2019-02-11] MEDS: lactobacillus rhamnosus 10,000 MMU CELLS/CAPSULE PO SCH ×2 (10:05→20:16)
--- NOTE | 2019-02-11 10:23 | NUR ---
pt drank the ice cream shake and half of the ensure
--- NOTE | 2019-02-11 14:44 | NUR ---
Reassessment: Pt is only drinking shakes and ensures mainly for meals per RN. No real PO changes not full meeting needs. Per RN pt endorses LBM 2 days ago w/ no current constipation. Receiving remeron and megace for appetite. Pt worried about fat content of foods per RN; substantial psych hx noted as well per psychiatrist MD note. Receiving MVI/folic. Will continue to monitor for additional food/drink preferences. Recommendations: 1) Continue mechanical soft diet per MD 2) Continue strawberry Ensure Enlive x1 TID; magic cup BIDLD; cold milkshake TID for additional kcals 3) encourage PO 4) additional routine bowel care; power pudding at dinner 5) Weekly wts Addendum: 02/11/19 at [address] Amended: Links added.
[2019-02-11 18:00] VITALS: BP 117/71
--- NOTE | 2019-02-11 18:10 | NUR ---
Patient in room ORTHO 4018. I have received report from Soheila OLEARY and had the opportunity to ask questions and assume patient care. Patient is finishing dinner and assisted back to bed. Will continue to monitor.
[2019-02-11] MEDS: albuterol 2.5 MG/3 ML nebule NEB PRN (19:41)
[2019-02-11] MEDS: traZODone 50mg tablet PO SCH (20:17)
[2019-02-11] MEDS: QUEtiapine 25mg tablet PO SCH (20:17)
[2019-02-11] MEDS: mirtazapine 15mg tablet PO SCH (20:18)
[2019-02-11] MEDS: latanoprost 0.005% 2.5ml ophthalmic drops EACHEYE SCH (20:21)
[2019-02-11 22:00] VITALS: BP 104/58
--- NOTE | 2019-02-12 06:28 | NUR ---
Problems reprioritized. Patient report given, questions answered & plan of care reviewed with Soheila RN. Patient resting in bed
[2019-02-12] MEDS: docusate sod 250mg capsule PO SCH (08:00)
[2019-02-12] MEDS: lactose-reduced food (Ensure Enlive) - 237ml bottle PO SCH ×3 (08:00→18:00)
[2019-02-12] MEDS: megestrol acetate 400mg/10ml UD oral suspension PO SCH ×2 (08:00→20:08)
[2019-02-12] MEDS: budesonide 0.5mg/2ml UD nebule IH SCH ×2 (08:52→19:50)
[2019-02-12] MEDS: clonazePAM 0.5mg tablet PO SCH ×2 (08:55→20:08)
[2019-02-12] MEDS: lactobacillus rhamnosus 10,000 MMU CELLS/CAPSULE PO SCH ×2 (08:55→20:07)
[2019-02-12] MEDS: folic acid 1mg tablet PO SCH (08:55)
[2019-02-12] MEDS: pantoprazole 40mg Tablet.DR PO SCH (08:55)
[2019-02-12] MEDS: citalopram 20mg tablet PO SCH (08:55)
[2019-02-12] MEDS: multivitamins, therapeutics tablet PO SCH (08:56)
[2019-02-12] MEDS: lamoTRIgine 100mg tablet PO SCH ×2 (08:56→20:08)
[2019-02-12] MEDS: lithium carbonate 150mg capsule PO SCH ×2 (08:56→20:08)
[2019-02-12] MEDS: polyethylene glycol 3350 17gm powd pack PO SCH (08:56)
[2019-02-12] MEDS: mineral oil/petrolatum, white cream 113gm jar TP SCH ×2 (08:57→20:00)
[2019-02-12] MEDS: OLANZAPINE 5 MG TABLET PO SCH (08:57)
[2019-02-12] MEDS: acetaminophen 325mg tablet PO SCH ×2 (08:57→20:07)
[2019-02-12] MEDS: aspirin 81mg tablet.DR PO SCH (09:00)
--- NOTE | 2019-02-12 10:02 | NUR ---
Spoke to pt sister Amparo Bejaranogodfrey re pt's condition. She states she will be here later this evening to visit
[2019-02-12 10:06] VITALS: BP 156/78
[2019-02-12 18:00] VITALS: BP 150/90
[2019-02-12] MEDS: albuterol 2.5 MG/3 ML nebule NEB PRN (19:50)
[2019-02-12] MEDS: mirtazapine 15mg tablet PO SCH (20:07)
[2019-02-12] MEDS: QUEtiapine 25mg tablet PO SCH (20:07)
[2019-02-12] MEDS: sennosides/docusate sodium tablet PO SCH (20:08)
[2019-02-12] MEDS: traZODone 50mg tablet PO SCH (20:08)
[2019-02-12] MEDS: latanoprost 0.005% 2.5ml ophthalmic drops EACHEYE SCH (20:20)
[2019-02-12 22:00] VITALS: BP 113/58
[2019-02-13] MEDS: LORazepam 0.5 MG tablet PO PRN (03:32)
[2019-02-13 06:00] VITALS: BP 117/66
--- NOTE | 2019-02-13 06:36 | NUR ---
REPORT GIVEN TO MAMTA GUO.
[2019-02-13] MEDS: mineral oil/petrolatum, white cream 113gm jar TP SCH ×2 (08:00→20:03)
[2019-02-13] MEDS: megestrol acetate 400mg/10ml UD oral suspension PO SCH ×2 (08:00→19:53)
[2019-02-13] MEDS: lactose-reduced food (Ensure Enlive) - 237ml bottle PO SCH ×3 (08:00→18:00)
[2019-02-13] MEDS: budesonide 0.5mg/2ml UD nebule IH SCH ×2 (08:45→18:36)
[2019-02-13] MEDS: citalopram 20mg tablet PO SCH (09:21)
[2019-02-13] MEDS: lamoTRIgine 100mg tablet PO SCH ×2 (09:21→19:53)
[2019-02-13] MEDS: aspirin 81mg tablet.DR PO SCH (09:21)
[2019-02-13] MEDS: lactobacillus rhamnosus 10,000 MMU CELLS/CAPSULE PO SCH ×2 (09:21→19:52)
[2019-02-13] MEDS: pantoprazole 40mg Tablet.DR PO SCH (09:21)
[2019-02-13] MEDS: lithium carbonate 150mg capsule PO SCH ×2 (09:22→19:53)
[2019-02-13] MEDS: folic acid 1mg tablet PO SCH (09:22)
[2019-02-13] MEDS: polyethylene glycol 3350 17gm powd pack PO SCH (09:22)
[2019-02-13] MEDS: clonazePAM 0.5mg tablet PO SCH ×2 (09:22→19:52)
[2019-02-13] MEDS: sennosides/docusate sodium tablet PO SCH ×2 (09:23→19:53)
[2019-02-13] MEDS: multivitamins, therapeutics tablet PO SCH (09:23)
[2019-02-13] MEDS: acetaminophen 325mg tablet PO SCH ×2 (09:24→19:52)
[2019-02-13] MEDS: OLANZAPINE 5 MG TABLET PO SCH (09:24)
--- NOTE | 2019-02-13 09:30 | NUR ---
pt's breathing is somewhat labored at rest, during conversation, normally. Drastically increased SOB w exertion. Recovers with rest. Refuses use of oxygen. Addendum: 02/13/19 at 1614 by Maria G Browne RN Amended: Links added.
[2019-02-13 10:00] VITALS: BP 129/71
--- NOTE | 2019-02-13 17:11 | NUR ---
PAGER ID: [phone] MESSAGE: Soheila [id number] re Ladarius Ugarte in [id number]- RR increased to 30 over the day, I hear crackles in the bases of her lungs, temp is 99.8. Unable to use IS. Do you want a CXR?
--- NOTE | 2019-02-13 17:35 | NUR ---
pt up to BR to void. RR 30 when back to bed after recovery, c/o SOB with any exertion. 02 90% on RA at rest. Audible crackles at lung bases. paged MD and received orders for CXR- paged RT for treatment. Will continue to monitor
[2019-02-13 18:00] VITALS: BP 118/61
[2019-02-13] MEDS: albuterol 2.5 MG/3 ML nebule NEB PRN (18:37)
--- NOTE | 2019-02-13 18:54 | NUR ---
REPORT REC'D FROM MAMTA GUO.
[2019-02-13] MEDS: traZODone 50mg tablet PO SCH (19:52)
[2019-02-13] MEDS: QUEtiapine 25mg tablet PO SCH (19:53)
[2019-02-13] MEDS: mirtazapine 15mg tablet PO SCH (19:53)
[2019-02-13] MEDS: latanoprost 0.005% 2.5ml ophthalmic drops EACHEYE SCH (20:01)
[2019-02-13 22:00] VITALS: BP 122/68
[2019-02-14] MEDS: oxyCODONE IR 5mg (immed. release) tablet PO PRN (05:55)
[2019-02-14 06:00] VITALS: BP 160/84
--- NOTE | 2019-02-14 06:32 | NUR ---
REPORT GIVEN TO MAMTA HUSTON.
[2019-02-14] MEDS: budesonide 0.5mg/2ml UD nebule IH SCH ×2 (07:22→19:57)
[2019-02-14] MEDS: lactose-reduced food (Ensure Enlive) - 237ml bottle PO SCH ×3 (08:00→18:00)
[2019-02-14] MEDS: mineral oil/petrolatum, white cream 113gm jar TP SCH ×2 (08:00→20:07)
[2019-02-14 10:00] VITALS: BP 139/76
[2019-02-14] MEDS: folic acid 1mg tablet PO SCH (10:08)
[2019-02-14] MEDS: pantoprazole 40mg Tablet.DR PO SCH (10:08)
[2019-02-14] MEDS: aspirin 81mg tablet.DR PO SCH (10:08)
[2019-02-14] MEDS: lactobacillus rhamnosus 10,000 MMU CELLS/CAPSULE PO SCH ×2 (10:08→20:03)
[2019-02-14] MEDS: citalopram 20mg tablet PO SCH (10:08)
[2019-02-14] MEDS: lamoTRIgine 100mg tablet PO SCH ×2 (10:09→20:05)
[2019-02-14] MEDS: lithium carbonate 150mg capsule PO SCH ×2 (10:09→20:04)
[2019-02-14] MEDS: megestrol acetate 400mg/10ml UD oral suspension PO SCH ×2 (10:09→20:05)
[2019-02-14] MEDS: clonazePAM 0.5mg tablet PO SCH ×2 (10:09→20:04)
[2019-02-14] MEDS: polyethylene glycol 3350 17gm powd pack PO SCH (10:09)
[2019-02-14] MEDS: acetaminophen 325mg tablet PO SCH ×2 (10:10→20:03)
[2019-02-14] MEDS: multivitamins, therapeutics tablet PO SCH (10:10)
[2019-02-14] MEDS: sennosides/docusate sodium tablet PO SCH ×2 (10:10→20:00)
[2019-02-14] MEDS: OLANZAPINE 5 MG TABLET PO SCH (10:10)
--- NOTE | 2019-02-14 10:28 | NUR ---
Reassessment: Pt 0% PO 2 days only drinks ensures/some of milkshakes. LBM 02/13. Awaiting placement. Will continue to monitor. Recommendations: 1) Continue mechanical soft diet per MD 2) Continue strawberry Ensure Enlive x1 TID; magic cup BIDLD; cold milkshake TID for additional kcals 3) encourage PO 4) additional routine bowel care; power pudding at dinner 5) Weekly wts Addendum: 02/14/19 at [address] Amended: Links added.
[2019-02-14 18:00] VITALS: BP 127/81
[2019-02-14] MEDS: albuterol 2.5 MG/3 ML nebule NEB PRN (19:57)
[2019-02-14] MEDS: QUEtiapine 25mg tablet PO SCH (20:04)
[2019-02-14] MEDS: mirtazapine 15mg tablet PO SCH (20:04)
[2019-02-14] MEDS: traZODone 50mg tablet PO SCH (20:04)
[2019-02-14] MEDS: latanoprost 0.005% 2.5ml ophthalmic drops EACHEYE SCH (20:05)
[2019-02-14 22:00] VITALS: BP 104/54
[2019-02-15] MEDS: LORazepam 0.5 MG tablet PO PRN ×2 (05:18→19:00)
[2019-02-15 06:00] VITALS: BP 118/60
--- NOTE | 2019-02-15 06:19 | NUR ---
REPORT GIVEN TO MAMTA HUSTON.
--- NOTE | 2019-02-15 06:25 | NUR ---
Patient in room [facility]THO 4018. I have received report from MAMTA Jacob and had the opportunity to ask questions and assume patient care.
[2019-02-15 07:07] LABS: BASOPHILS % (AUTO) 0.3 % (0-1); EOSINOPHILS # (AUTO) 0.2 X10'3 (0-0.9); EOSINOPHILS % (AUTO) 2.8 % (0-6); HEMATOCRIT 37.4 % (35.0-45.0); HEMOGLOBIN 12.5 g/dl (12.0-16.0); LYMPHOCYTES % (AUTO) 16.9 % (21-51); MEAN CORPUSCULAR HGB CONC 33.5 g/dL (33.0-36.5); MEAN CORPUSCULAR VOLUME 101.6 FL (78-98); MEAN PLATELET VOLUME 8.3 FL (7.4-10.4); MONOCYTES # (AUTO) 0.5 X10'3 (0-0.9); MONOCYTES % (AUTO) 8.4 % (2-12); NEUTROPHILS # (AUTO) 4.1 X10'3 (1.8-7.7); NEUTROPHILS % (AUTO) 71.6 % (42-75); PLATELET COUNT 198 X10'3 (140-440); RED BLOOD COUNT 3.68 X10'6 (4.20-5.60); RED CELL DISTRIBUTION WIDTH 13.4 % (11.5-14.5); WHITE BLOOD COUNT 5.7 X10'3 (4.5-11.0)
[2019-02-15 07:22] LABS: ALANINE AMINOTRANSFERASE 20 U/L (12-78); ALBUMIN 3.3 G/DL (3.4-5.0); ALBUMIN/GLOBULIN RATIO 1.1 (1.1-1.5); ALKALINE PHOSPHATASE 73 IU/L (46-116); ANION GAP 9 (8-16); ASPARTATE AMINO TRANSFERASE 13 U/L (10-37); BILIRUBIN,TOTAL 0.5 MG/DL (0.1-1.0); BLOOD UREA NITROGEN 21 MG/DL (7-18); BUN/CREATININE RATIO 15.2 (6.6-38.0); CALCIUM 9.8 MG/DL (8.5-10.1); CHLORIDE 110 MMOL/L (99-107); CREATININE 1.38 MG/DL (0.40-0.90); GLUCOSE 95 MG/DL (70-104); POTASSIUM 4.5 MMOL/L (3.5-5.1); SODIUM 147 MMOL/L (135-145); TOTAL CARBON DIOXIDE 28.1 MMOL/L (24-32); TOTAL PROTEIN 6.2 G/DL (6.4-8.2); eGFR 39 ML/MIN
[2019-02-15] MEDS ORDERED: sodium chloride 0.45% 1,000 ML IV SCH (07:50)
[2019-02-15] MEDS: mineral oil/petrolatum, white cream 113gm jar TP SCH ×2 (08:00→19:54)
[2019-02-15] MEDS: megestrol acetate 400mg/10ml UD oral suspension PO SCH ×2 (08:02→19:42)
[2019-02-15] MEDS: polyethylene glycol 3350 17gm powd pack PO SCH (08:02)
[2019-02-15] MEDS: citalopram 20mg tablet PO SCH (08:03)
[2019-02-15] MEDS: lactobacillus rhamnosus 10,000 MMU CELLS/CAPSULE PO SCH ×2 (08:03→19:00)
[2019-02-15] MEDS: lithium carbonate 150mg capsule PO SCH ×2 (08:03→19:43)
[2019-02-15] MEDS: folic acid 1mg tablet PO SCH (08:03)
[2019-02-15] MEDS: lamoTRIgine 100mg tablet PO SCH ×2 (08:03→19:00)
[2019-02-15] MEDS: clonazePAM 0.5mg tablet PO SCH ×2 (08:03→19:43)
[2019-02-15] MEDS: aspirin 81mg tablet.DR PO SCH (08:03)
[2019-02-15] MEDS: OLANZAPINE 5 MG TABLET PO SCH (08:04)
[2019-02-15] MEDS: sennosides/docusate sodium tablet PO SCH ×2 (08:04→19:55)
[2019-02-15] MEDS: pantoprazole 40mg Tablet.DR PO SCH (08:04)
[2019-02-15] MEDS: multivitamins, therapeutics tablet PO SCH (08:04)
[2019-02-15] MEDS: acetaminophen 325mg tablet PO SCH ×2 (08:05→19:44)
[2019-02-15] MEDS: lactose-reduced food (Ensure Enlive) - 237ml bottle PO SCH ×3 (08:06→18:00)
[2019-02-15] MEDS: budesonide 0.5mg/2ml UD nebule IH SCH ×2 (08:23→19:52)
[2019-02-15 10:00] VITALS: BP 131/71
[2019-02-15 18:00] VITALS: BP 123/75
--- NOTE | 2019-02-15 18:28 | NUR ---
Problems reprioritized. Patient report given, questions answered & plan of care reviewed with MAMTA Jacob.
[2019-02-15] MEDS: QUEtiapine 25mg tablet PO SCH (19:00)
[2019-02-15] MEDS: traZODone 50mg tablet PO SCH (19:00)
[2019-02-15] MEDS: mirtazapine 15mg tablet PO SCH (19:45)
[2019-02-15] MEDS: albuterol 2.5 MG/3 ML nebule NEB PRN (19:52)
--- NOTE | 2019-02-15 20:45 | NUR ---
report rec'd from daphnie Wasserman.
[2019-02-15] MEDS: latanoprost 0.005% 2.5ml ophthalmic drops EACHEYE SCH (20:47)
--- NOTE | 2019-02-15 20:49 | NUR ---
1 liter of 1/2 NS administered and stopped at this time.
[2019-02-15 22:00] VITALS: BP 126/51
--- NOTE | 2019-02-16 06:23 | NUR ---
report given to daphnie Max.
[2019-02-16 06:30] VITALS: BP 146/76
[2019-02-16 06:36] LABS: ALBUMIN 3.6 G/DL (3.4-5.0); ANION GAP 8 (8-16); BLOOD UREA NITROGEN 19 MG/DL (7-18); BUN/CREATININE RATIO 14.3 (6.6-38.0); CALCIUM 9.8 MG/DL (8.5-10.1); CHLORIDE 109 MMOL/L (99-107); CREATININE 1.33 MG/DL (0.40-0.90); GLUCOSE 87 MG/DL (70-104); POTASSIUM 4.7 MMOL/L (3.5-5.1); SODIUM 146 MMOL/L (135-145); TOTAL CARBON DIOXIDE 29.2 MMOL/L (24-32); eGFR 40 ML/MIN
[2019-02-16] MEDS: budesonide 0.5mg/2ml UD nebule IH SCH ×2 (07:37→19:19)
[2019-02-16] MEDS ORDERED: sodium chloride 0.45% 1,000 ML IV SCH (07:55)
[2019-02-16] MEDS: pantoprazole 40mg Tablet.DR PO SCH (07:56)
[2019-02-16] MEDS: OLANZAPINE 5 MG TABLET PO SCH (07:56)
[2019-02-16] MEDS: lactobacillus rhamnosus 10,000 MMU CELLS/CAPSULE PO SCH ×2 (07:57→22:10)
[2019-02-16] MEDS: lamoTRIgine 100mg tablet PO SCH (07:57)
[2019-02-16] MEDS: sennosides/docusate sodium tablet PO SCH ×2 (07:57→20:00)
[2019-02-16] MEDS: folic acid 1mg tablet PO SCH (07:57)
[2019-02-16] MEDS: lithium carbonate 150mg capsule PO SCH ×2 (07:57→22:10)
[2019-02-16] MEDS: multivitamins, therapeutics tablet PO SCH (07:57)
[2019-02-16] MEDS: aspirin 81mg tablet.DR PO SCH (07:57)
[2019-02-16] MEDS: clonazePAM 0.5mg tablet PO SCH ×2 (07:57→22:10)
[2019-02-16] MEDS: citalopram 20mg tablet PO SCH (07:58)
[2019-02-16] MEDS: acetaminophen 325mg tablet PO SCH ×2 (07:58→22:09)
[2019-02-16] MEDS: polyethylene glycol 3350 17gm powd pack PO SCH (07:59)
[2019-02-16] MEDS: lactose-reduced food (Ensure Enlive) - 237ml bottle PO SCH ×4 (08:00→19:00)
[2019-02-16] MEDS: megestrol acetate 400mg/10ml UD oral suspension PO SCH ×2 (09:23→22:11)
[2019-02-16 10:00] VITALS: BP 132/73
[2019-02-16] MEDS: mineral oil/petrolatum, white cream 113gm jar TP SCH ×2 (12:03→20:00)
[2019-02-16 17:00] VITALS: BP 122/80
--- NOTE | 2019-02-16 18:49 | NUR ---
Patient in room ORTH[facility] 4018. I have received report from Winter OLEARY and had the opportunity to ask questions and assume patient care.
[2019-02-16] MEDS: albuterol 2.5 MG/3 ML nebule NEB PRN (19:19)
[2019-02-16] MEDS: QUEtiapine 25mg tablet PO SCH (22:09)
[2019-02-16] MEDS: mirtazapine 15mg tablet PO SCH (22:10)
[2019-02-16] MEDS: traZODone 50mg tablet PO SCH (22:10)
[2019-02-16] MEDS: latanoprost 0.005% 2.5ml ophthalmic drops EACHEYE SCH (22:11)
[2019-02-16 22:46] VITALS: BP 151/70
--- NOTE | 2019-02-17 06:34 | NUR ---
Patient in room [facility]TH[facility] 4018. I have received report from Lurdes OLEARY and had the opportunity to ask questions and assume patient care.
--- NOTE | 2019-02-17 06:41 | NUR ---
Problems reprioritized. Patient report given, questions answered & plan of care reviewed with Zeke OLEARY.
[2019-02-17 07:50] VITALS: BP 167/92
[2019-02-17] MEDS: megestrol acetate 400mg/10ml UD oral suspension PO SCH ×4 (08:00→20:00)
[2019-02-17] MEDS: budesonide 0.5mg/2ml UD nebule IH SCH ×2 (08:12→19:21)
[2019-02-17] MEDS: aspirin 81mg tablet.DR PO SCH (09:39)
[2019-02-17] MEDS: polyethylene glycol 3350 17gm powd pack PO SCH (09:39)
[2019-02-17] MEDS: sennosides/docusate sodium tablet PO SCH ×2 (09:39→20:16)
[2019-02-17] MEDS: pantoprazole 40mg Tablet.DR PO SCH (09:39)
[2019-02-17] MEDS: folic acid 1mg tablet PO SCH (09:39)
[2019-02-17] MEDS: multivitamins, therapeutics tablet PO SCH (09:40)
[2019-02-17] MEDS: clonazePAM 0.5mg tablet PO SCH ×2 (09:40→20:16)
[2019-02-17] MEDS: lithium carbonate 150mg capsule PO SCH ×2 (09:41→20:17)
[2019-02-17] MEDS: acetaminophen 325mg tablet PO SCH ×2 (09:41→20:16)
[2019-02-17] MEDS: lactobacillus rhamnosus 10,000 MMU CELLS/CAPSULE PO SCH ×2 (09:41→20:17)
[2019-02-17 10:00] VITALS: BP 127/79
[2019-02-17 10:17] LABS: ALANINE AMINOTRANSFERASE 22 U/L (12-78); ALBUMIN 3.3 G/DL (3.4-5.0); ALBUMIN/GLOBULIN RATIO 1.1 (1.1-1.5); ALKALINE PHOSPHATASE 72 IU/L (46-116); ANION GAP 6 (8-16); ASPARTATE AMINO TRANSFERASE 11 U/L (10-37); BILIRUBIN,TOTAL 0.3 MG/DL (0.1-1.0); BLOOD UREA NITROGEN 19 MG/DL (7-18); BUN/CREATININE RATIO 15.1 (6.6-38.0); CALCIUM 9.7 MG/DL (8.5-10.1); CHLORIDE 111 MMOL/L (99-107); CREATININE 1.26 MG/DL (0.40-0.90); GLUCOSE 109 MG/DL (70-104); POTASSIUM 4.1 MMOL/L (3.5-5.1); SODIUM 145 MMOL/L (135-145); TOTAL CARBON DIOXIDE 27.7 MMOL/L (24-32); TOTAL PROTEIN 6.2 G/DL (6.4-8.2); eGFR 43 ML/MIN
--- NOTE | 2019-02-17 12:23 | NUR ---
Reassessment: Pt PO improved breakfast and lunch today 50% avg meeting needs though 0-25% mostly this admit does fluctuate. ROSALINE d/w RN for new scaled wt given last noted 01/17. Receiving MVI and folic w/ MCV 101.6. Awaiting placement. Will continue to monitor. Recommendations: 1) Continue mechanical soft diet per MD 2) Continue strawberry Ensure Enlive x1 TID; magic cup BIDLD; cold milkshake TID for additional kcals 3) encourage PO 4) additional routine bowel care; power pudding at dinner 5) Weekly wts Addendum: 02/17/19 at [address] Amended: Links added.
[2019-02-17] MEDS: lactose-reduced food (Ensure Enlive) - 237ml bottle PO SCH ×2 (13:00→18:32)
[2019-02-17] MEDS: [UNRECOGNIZED DRUG - OTHER] TP SCH (14:55)
[2019-02-17] MEDS: mineral oil/petrolatum, white cream 113gm jar TP SCH ×2 (14:56→20:00)
[2019-02-17] MEDS: LORazepam 0.5 MG tablet PO PRN (16:15)
--- NOTE | 2019-02-17 16:18 | NUR ---
PT ANXIOUS, NOISES BOTHERING HER, YELLING OUT, SHAKING, OBSSESSED WITH HAIR AFTER BEING WASHED, PT WANTS "STUFF" TO GET OUT OF HER HAIR.
--- NOTE | 2019-02-17 17:29 | NUR ---
PT SOB WHEN AMBULATING TO BR, O2 86% PLACED ON 1 L N/C. O2 SATS 95% ON 1 L N/C
[2019-02-17 18:00] VITALS: BP 141/78
--- NOTE | 2019-02-17 18:40 | NUR ---
Problems reprioritized. Patient report given, questions answered & plan of care reviewed with ILEANA OLEARY.
[2019-02-17] MEDS: albuterol 2.5 MG/3 ML nebule NEB PRN (19:21)
[2019-02-17] MEDS: traZODone 50mg tablet PO SCH (20:14)
[2019-02-17] MEDS: mirtazapine 15mg tablet PO SCH (20:14)
[2019-02-17] MEDS: QUEtiapine 25mg tablet PO SCH (20:16)
[2019-02-17] MEDS: latanoprost 0.005% 2.5ml ophthalmic drops EACHEYE SCH (20:18)
[2019-02-17 22:00] VITALS: BP 141/75
--- NOTE | 2019-02-17 23:00 | NUR ---
Patient finally calm down and is currently asleep. Patient did not stop screaming for a good 2 hr straight. She was fixated with her shoes and putting it on, then it was looking for her dentures. Patient has poor memory of using the call light. Reinforcement needed. Will continue with care.
[2019-02-18 06:00] VITALS: BP 116/80
--- NOTE | 2019-02-18 06:26 | NUR ---
Problems reprioritized. Patient report given, questions answered & plan of care reviewed with Carole OLEARY.
--- NOTE | 2019-02-18 06:45 | NUR ---
Patient in room [facility]TH[facility] 4018. I have received report from Ozzy OLEARY and had the opportunity to ask questions and assume patient care.
[2019-02-18] MEDS: mineral oil/petrolatum, white cream 113gm jar TP SCH ×2 (08:17→20:00)
[2019-02-18] MEDS: [UNRECOGNIZED DRUG - OTHER] TP SCH (08:17)
[2019-02-18] MEDS: polyethylene glycol 3350 17gm powd pack PO SCH (08:18)
[2019-02-18] MEDS: acetaminophen 325mg tablet PO SCH ×2 (08:19→19:25)
[2019-02-18] MEDS: clonazePAM 0.5mg tablet PO SCH ×2 (08:19→19:22)
[2019-02-18] MEDS: lithium carbonate 150mg capsule PO SCH ×2 (08:20→19:26)
[2019-02-18] MEDS: sennosides/docusate sodium tablet PO SCH ×2 (08:21→19:25)
[2019-02-18] MEDS: folic acid 1mg tablet PO SCH (08:21)
[2019-02-18] MEDS: multivitamins, therapeutics tablet PO SCH (08:21)
[2019-02-18] MEDS: aspirin 81mg tablet.DR PO SCH (08:21)
[2019-02-18] MEDS: lactobacillus rhamnosus 10,000 MMU CELLS/CAPSULE PO SCH ×2 (08:22→19:24)
[2019-02-18] MEDS: pantoprazole 40mg Tablet.DR PO SCH (08:22)
[2019-02-18] MEDS: lactose-reduced food (Ensure Enlive) - 237ml bottle PO SCH ×3 (08:22→17:53)
[2019-02-18] MEDS: megestrol acetate 400mg/10ml UD oral suspension PO SCH ×3 (08:23→19:30)
[2019-02-18] MEDS: budesonide 0.5mg/2ml UD nebule IH SCH ×2 (10:02→20:57)
[2019-02-18] MEDS: LORazepam 0.5 MG tablet PO PRN (16:37)
--- NOTE | 2019-02-18 17:39 | NUR ---
joshua hospitalist [phone] can a UA be ordered for possible UTI, patient complaining of pain and frequent urination Addendum: 02/18/19 at 1740 by Morgan Tao RN hospitalist called back and said to order UA
[2019-02-18 18:00] VITALS: BP_SYST 112; BP_SYST 159; BP_DIAS 55; BP_DIAS 66
--- NOTE | 2019-02-18 18:19 | NUR ---
Problems reprioritized. Patient report given, questions answered & plan of care reviewed with Chula OLEARY.
[2019-02-18 18:29] LABS: CLARITY,URINE CLEAR (Clear); COLOR,URINE YELLOW (Yellow); GLUCOSE, URINE NEGATIVE (Neg); KETONES,URINE NEGATIVE (Neg); LEUKOCYTE ESTERASE ,URINE NEGATIVE (Neg); NITRITES, URINE NEGATIVE (Neg); OCCULT BLOOD,URINE NEGATIVE (Neg); PH,URINE 8.5 (4.8-8.0); PROTEIN,URINE TRACE mg/dl (Neg); UROBILINOGEN,URINE 0.2 E.U/dL (0.2-1.0)
--- NOTE | 2019-02-18 18:35 | NUR ---
Patient in room [facility]TH[facility] 4018. I have received report from MAMTA Mora and had the opportunity to ask questions and assume patient care.
[2019-02-18 19:01] LABS: UA COLLECTION TYPE CLN CATCH MIDSTREAM
[2019-02-18 19:02] LABS: BACTERIA,URINE NONE SEEN /HPF (Neg); RBC,URINE NONE SEEN /HPF (0-2); SQUAMOUS EPITHELIAL CELL,UR FEW /LPF (FEW); TRANSITIONAL EPI CELLS,URINE FEW /HPF; WBC,URINE 0-4 /HPF (0-4)
[2019-02-18] MEDS: QUEtiapine 25mg tablet PO SCH (19:23)
[2019-02-18] MEDS: traZODone 50mg tablet PO SCH (19:23)
[2019-02-18 22:00] VITALS: BP 112/55
[2019-02-18] MEDS: mirtazapine 15mg tablet PO SCH (22:05)
[2019-02-18] MEDS: latanoprost 0.005% 2.5ml ophthalmic drops EACHEYE SCH (22:06)
[2019-02-19] MEDS: LORazepam 0.5 MG tablet PO PRN ×3 (02:14→16:00)
[2019-02-19] MEDS: oxyCODONE IR 5mg (immed. release) tablet PO PRN (04:56)
[2019-02-19 06:00] VITALS: BP 144/85
--- NOTE | 2019-02-19 06:18 | NUR ---
Problems reprioritized. Patient report given, questions answered & plan of care reviewed with MAMTA Mora.
--- NOTE | 2019-02-19 06:27 | NUR ---
Patient in room [facility]TH[facility] 4018. I have received report from Chula OLEARY and had the opportunity to ask questions and assume patient care.
--- NOTE | 2019-02-19 08:00 | NUR ---
patient refused Addendum: 02/19/19 at 1452 by Morgan Tao RN Amended: Links added.
[2019-02-19] MEDS: lactose-reduced food (Ensure Enlive) - 237ml bottle PO SCH ×3 (08:19→18:02)
[2019-02-19] MEDS: mineral oil/petrolatum, white cream 113gm jar TP SCH ×2 (08:20→19:29)
[2019-02-19] MEDS: [UNRECOGNIZED DRUG - OTHER] TP SCH (08:20)
[2019-02-19] MEDS: polyethylene glycol 3350 17gm powd pack PO SCH (08:25)
[2019-02-19] MEDS: folic acid 1mg tablet PO SCH (08:26)
[2019-02-19] MEDS: clonazePAM 0.5mg tablet PO SCH ×2 (08:28→19:23)
[2019-02-19] MEDS: sennosides/docusate sodium tablet PO SCH ×2 (08:28→19:25)
[2019-02-19] MEDS: aspirin 81mg tablet.DR PO SCH (08:29)
[2019-02-19] MEDS: lithium carbonate 150mg capsule PO SCH ×2 (08:29→19:23)
[2019-02-19] MEDS: pantoprazole 40mg Tablet.DR PO SCH (08:29)
[2019-02-19] MEDS: acetaminophen 325mg tablet PO SCH ×2 (08:29→19:24)
[2019-02-19] MEDS: multivitamins, therapeutics tablet PO SCH (08:29)
[2019-02-19] MEDS: lactobacillus rhamnosus 10,000 MMU CELLS/CAPSULE PO SCH ×2 (08:29→19:22)
[2019-02-19] MEDS: megestrol acetate 400mg/10ml UD oral suspension PO SCH ×2 (08:30→19:32)
[2019-02-19] MEDS: budesonide 0.5mg/2ml UD nebule IH SCH ×2 (08:49→20:31)
--- NOTE | 2019-02-19 12:39 | NUR ---
Reassessment: Patient had new weight taken today, 45 kg, total of 28 lbs lost in three months. MD aware. Continues with remeron and megace, however does refuse to take them at times. Refusing meals for two days now. Ate 25-49% prior to refusals. Drinking 75% average of ensure enlive. Receiving MVI and folic w/ MCV 101.6. Awaiting placement. Will continue to monitor. Recommendations: 1) Continue mechanical soft diet per MD 2) Continue strawberry Ensure Enlive TID; magic cup BIDLD; cold milkshake TID for additional kcals 3) encourage PO 4) additional routine bowel care; power pudding at dinner 5) Weekly wts Addendum: 02/19/19 at [address] Amended: Links added.
[2019-02-19 18:00] VITALS: BP 169/92
--- NOTE | 2019-02-19 18:09 | NUR ---
Problems reprioritized. Patient report given, questions answered & plan of care reviewed with Brandee Cole RN.
[2019-02-19] MEDS: QUEtiapine 25mg tablet PO SCH (19:23)
[2019-02-19] MEDS: traZODone 50mg tablet PO SCH (19:23)
[2019-02-19] MEDS: mirtazapine 15mg tablet PO SCH (19:24)
[2019-02-19] MEDS: latanoprost 0.005% 2.5ml ophthalmic drops EACHEYE SCH (19:25)
[2019-02-20] MEDS: LORazepam 0.5 MG tablet PO PRN ×3 (03:44→16:22)
[2019-02-20 06:00] VITALS: BP 120/88
--- NOTE | 2019-02-20 06:07 | NUR ---
Problems reprioritized. Patient report given, questions answered & plan of care reviewed with MAMTA Mora.
--- NOTE | 2019-02-20 06:34 | NUR ---
Patient in room [facility]TH[facility] 4018. I have received report from Brandee OLEARY and had the opportunity to ask questions and assume patient care.
[2019-02-20 07:20] LABS: ALANINE AMINOTRANSFERASE 25 U/L (12-78); ALBUMIN 3.4 G/DL (3.4-5.0); ALBUMIN/GLOBULIN RATIO 1.2 (1.1-1.5); ALKALINE PHOSPHATASE 68 IU/L (46-116); ANION GAP 6 (8-16); ASPARTATE AMINO TRANSFERASE 20 U/L (10-37); BILIRUBIN,TOTAL 0.6 MG/DL (0.1-1.0); BLOOD UREA NITROGEN 19 MG/DL (7-18); BUN/CREATININE RATIO 15.3 (6.6-38.0); CALCIUM 9.6 MG/DL (8.5-10.1); CHLORIDE 112 MMOL/L (99-107); CREATININE 1.24 MG/DL (0.40-0.90); GLUCOSE 86 MG/DL (70-104); POTASSIUM 4.7 MMOL/L (3.5-5.1); SODIUM 145 MMOL/L (135-145); TOTAL CARBON DIOXIDE 26.9 MMOL/L (24-32); TOTAL PROTEIN 6.3 G/DL (6.4-8.2); eGFR 44 ML/MIN
[2019-02-20] MEDS: mineral oil/petrolatum, white cream 113gm jar TP SCH ×2 (07:56→19:18)
[2019-02-20] MEDS: [UNRECOGNIZED DRUG - OTHER] TP SCH (07:56)
[2019-02-20] MEDS: lactose-reduced food (Ensure Enlive) - 237ml bottle PO SCH ×3 (07:57→18:05)
[2019-02-20] MEDS: megestrol acetate 400mg/10ml UD oral suspension PO SCH ×2 (08:00→19:21)
[2019-02-20] MEDS: aspirin 81mg tablet.DR PO SCH (08:02)
[2019-02-20] MEDS: polyethylene glycol 3350 17gm powd pack PO SCH (08:02)
[2019-02-20] MEDS: lactobacillus rhamnosus 10,000 MMU CELLS/CAPSULE PO SCH ×2 (08:03→19:10)
[2019-02-20] MEDS: multivitamins, therapeutics tablet PO SCH (08:03)
[2019-02-20] MEDS: lithium carbonate 150mg capsule PO SCH ×2 (08:03→19:10)
[2019-02-20] MEDS: acetaminophen 325mg tablet PO SCH ×2 (08:03→19:11)
[2019-02-20] MEDS: sennosides/docusate sodium tablet PO SCH ×2 (08:03→19:21)
[2019-02-20] MEDS: pantoprazole 40mg Tablet.DR PO SCH (08:03)
[2019-02-20] MEDS: clonazePAM 0.5mg tablet PO SCH ×2 (08:04→19:10)
[2019-02-20] MEDS: oxyCODONE IR 5mg (immed. release) tablet PO PRN ×2 (08:04→19:12)
[2019-02-20] MEDS: folic acid 1mg tablet PO SCH (08:04)
[2019-02-20] MEDS: budesonide 0.5mg/2ml UD nebule IH SCH ×2 (09:17→20:40)
[2019-02-20 10:00] VITALS: BP 141/84
[2019-02-20] MEDS ORDERED: olanzapine 10mg tablet PO ONE (10:00)
--- NOTE | 2019-02-20 12:16 | NUR ---
ok per MD to take and leave IV out
[2019-02-20 18:00] VITALS: BP 164/92
--- NOTE | 2019-02-20 18:06 | NUR ---
Problems reprioritized. Patient report given, questions answered & plan of care reviewed with Brandee Cole RN.
[2019-02-20] MEDS: mirtazapine 15mg tablet PO SCH (19:09)
[2019-02-20] MEDS: QUEtiapine 25mg tablet PO SCH (19:10)
[2019-02-20] MEDS: traZODone 50mg tablet PO SCH (19:10)
[2019-02-20] MEDS: latanoprost 0.005% 2.5ml ophthalmic drops EACHEYE SCH (19:14)
[2019-02-20] MEDS ORDERED: haloperidol 5mg tablet PO ONE (20:10)
[2019-02-20 22:00] VITALS: BP 148/84
[2019-02-21 06:00] VITALS: BP 175/105
--- NOTE | 2019-02-21 06:31 | NUR ---
Problems reprioritized. Patient report given, questions answered & plan of care reviewed with MAMTA Grace.
--- NOTE | 2019-02-21 06:39 | NUR ---
Received report from Brandee OLEARY
[2019-02-21] MEDS: [UNRECOGNIZED DRUG - OTHER] TP SCH (08:00)
[2019-02-21] MEDS: polyethylene glycol 3350 17gm powd pack PO SCH (08:00)
[2019-02-21] MEDS: sennosides/docusate sodium tablet PO SCH ×2 (08:26→19:44)
[2019-02-21] MEDS: folic acid 1mg tablet PO SCH (08:26)
[2019-02-21] MEDS: acetaminophen 325mg tablet PO SCH ×2 (08:26→19:45)
[2019-02-21] MEDS: clonazePAM 0.5mg tablet PO SCH ×2 (08:26→19:44)
[2019-02-21] MEDS: aspirin 81mg tablet.DR PO SCH (08:26)
[2019-02-21] MEDS: megestrol acetate 400mg/10ml UD oral suspension PO SCH ×2 (08:27→20:00)
[2019-02-21] MEDS: lactobacillus rhamnosus 10,000 MMU CELLS/CAPSULE PO SCH ×2 (08:27→19:45)
[2019-02-21] MEDS: lithium carbonate 150mg capsule PO SCH ×2 (08:27→19:44)
[2019-02-21] MEDS: pantoprazole 40mg Tablet.DR PO SCH (08:27)
[2019-02-21] MEDS: multivitamins, therapeutics tablet PO SCH (08:27)
[2019-02-21] MEDS: mineral oil/petrolatum, white cream 113gm jar TP SCH ×2 (08:27→20:00)
[2019-02-21] MEDS: lactose-reduced food (Ensure Enlive) - 237ml bottle PO SCH ×3 (08:36→18:00)
[2019-02-21 10:00] VITALS: BP 103/54
[2019-02-21] MEDS ORDERED: ALBU2.5V7 NEB (13:28)
[2019-02-21] MEDS ORDERED: WOOL454C TP (13:28)
[2019-02-21] MEDS ORDERED: TRAZ-251 PO (13:28)
[2019-02-21] MEDS ORDERED: BUDE0.5A3 IH (13:28)
[2019-02-21] MEDS ORDERED: MIRT15TA8 PO (13:28)
[2019-02-21] MEDS ORDERED: ASPI-1071 PO (13:28)
[2019-02-21] MEDS ORDERED: CLOB118S3 TP (13:28)
[2019-02-21] MEDS ORDERED: PANT40TA4 PO (13:28)
[2019-02-21] MEDS ORDERED: CLON0.5T12 PO (13:28)
[2019-02-21] MEDS ORDERED: MULT-1179 PO (13:28)
[2019-02-21] MEDS ORDERED: ATI0.5T PO (13:28)
[2019-02-21] MEDS ORDERED: MEGE400O2 PO (13:28)
[2019-02-21] MEDS ORDERED: ACET-75 PO (13:28)
[2019-02-21] MEDS ORDERED: OXYC-658 PO (13:28)
[2019-02-21] MEDS ORDERED: QUET25TA34 PO (13:28)
[2019-02-21] MEDS ORDERED: LITH150C8 PO (13:28)
[2019-02-21] MEDS ORDERED: TRIA15CR62 TP (13:28)
[2019-02-21] MEDS ORDERED: FOLI1TAB16 PO (13:28)
[2019-02-21] MEDS ORDERED: XAL0.005OS OP (13:28)
[2019-02-21] MEDS: LORazepam 0.5 MG tablet PO PRN (13:43)
[2019-02-21] MEDS ORDERED: OLANZapine 5mg rapidly disint. tablet PO SCH (16:45)
[2019-02-21] MEDS ORDERED: olanzapine 10mg tablet PO STA (16:45)
[2019-02-21 18:00] VITALS: BP 144/96
[2019-02-21] MEDS: QUEtiapine 25mg tablet PO SCH (18:32)
[2019-02-21] MEDS: oxyCODONE IR 5mg (immed. release) tablet PO PRN (18:32)
[2019-02-21] MEDS: traZODone 50mg tablet PO SCH (18:32)
--- NOTE | 2019-02-21 19:00 | NUR ---
Patient in room [facility]TH[facility] 4018. I have received report from MAMTA Grace and had the opportunity to ask questions and assume patient care. Patient awake for bedside report. Extremely anxious and yelling. Will continue to use therapeutic communication and monitor closely.
[2019-02-21] MEDS: albuterol 2.5 MG/3 ML nebule NEB PRN (20:04)
[2019-02-21] MEDS: budesonide 0.5mg/2ml UD nebule IH SCH (20:05)
[2019-02-21] MEDS: mirtazapine 15mg tablet PO SCH (21:37)
[2019-02-21] MEDS: latanoprost 0.005% 2.5ml ophthalmic drops EACHEYE SCH (21:41)
[2019-02-21 23:00] VITALS: BP 141/95
[2019-02-22] MEDS: LORazepam 0.5 MG tablet PO PRN ×2 (01:35→08:10)
--- NOTE | 2019-02-22 06:21 | NUR ---
Patient in room [facility]TH[facility] 4018. I have received report from Ashwini and had the opportunity to ask questions and assume patient care.
--- NOTE | 2019-02-22 06:23 | NUR ---
Problems reprioritized. Patient report given, questions answered & plan of care reviewed with MAMTA SERVIN.
[2019-02-22 06:30] VITALS: BP 125/56
[2019-02-22] MEDS: acetaminophen 325mg tablet PO SCH (07:30)
[2019-02-22] MEDS: megestrol acetate 400mg/10ml UD oral suspension PO SCH (07:30)
[2019-02-22] MEDS: folic acid 1mg tablet PO SCH (07:30)
[2019-02-22] MEDS: aspirin 81mg tablet.DR PO SCH (07:30)
[2019-02-22] MEDS: lactobacillus rhamnosus 10,000 MMU CELLS/CAPSULE PO SCH (07:30)
[2019-02-22] MEDS: multivitamins, therapeutics tablet PO SCH (07:30)
[2019-02-22] MEDS: lithium carbonate 150mg capsule PO SCH (07:31)
[2019-02-22] MEDS: sennosides/docusate sodium tablet PO SCH (07:31)
[2019-02-22] MEDS: polyethylene glycol 3350 17gm powd pack PO SCH (07:31)
[2019-02-22] MEDS: pantoprazole 40mg Tablet.DR PO SCH (07:31)
[2019-02-22] MEDS: lactose-reduced food (Ensure Enlive) - 237ml bottle PO SCH (07:31)
[2019-02-22] MEDS: mineral oil/petrolatum, white cream 113gm jar TP SCH (07:32)
[2019-02-22] MEDS: [UNRECOGNIZED DRUG - OTHER] TP SCH (07:32)
[2019-02-22] MEDS: clonazePAM 0.5mg tablet PO SCH (07:39)
[2019-02-22] MEDS ORDERED: OLANZapine 5mg rapidly disint. tablet PO STA (08:17)
--- NOTE | 2019-02-22 09:39 | NUR ---
Report called to Brianda at [facility]. Meds sent with pt. Transfered via [place] with [facility] staff and all belongings.
== END 2019-02-22 08:30 | DRG 720 ==
LOC: ER 09:28 → PCU 3S 13:27 → SUR 3N 01-02 02:20 → ORTHO 4S 01-09 12:10
PROVIDERS: ADMIT Family Medicine; ATTEND Family Medicine
PROC: 5A09357 Assistance with Respiratory Ventilation, Less than 24 Consecutive Hours, Continuous Positive Airway Pressure (ICD-10-PCS; principal; 2018-12-13)
DX: A41.9 Sepsis, unspecified organism (principal); N17.0 Acute kidney failure with tubular necrosis; J96.21 Acute and chronic respiratory failure with hypoxia; J69.0 Pneumonitis due to inhalation of food and vomit; M41.9 Scoliosis, unspecified; E83.52 Hypercalcemia; E87.1 Hypo-osmolality and hyponatremia; F03.91 Unspecified dementia, unspecified severity, with behavioral disturbance; E86.0 Dehydration; I50.9 Heart failure, unspecified; I13.0 Hypertensive heart and chronic kidney disease with heart failure and stage 1 through stage 4 chronic kidney disease, or unspecified chronic kidney disease; F20.9 Schizophrenia, unspecified; F31.9 Bipolar disorder, unspecified; R23.0 Cyanosis; M54.9 Dorsalgia, unspecified; R00.0 Tachycardia, unspecified; Z60.2 Problems related to living alone; G24.01 Drug induced subacute dyskinesia; F41.9 Anxiety disorder, unspecified; H40.9 Unspecified glaucoma; J44.9 Chronic obstructive pulmonary disease, unspecified; L40.0 Psoriasis vulgaris; M81.0 Age-related osteoporosis without current pathological fracture; N18.3 Chronic kidney disease, stage 3 (moderate); Z79.51 Long term (current) use of inhaled steroids; Z88.6 Allergy status to analgesic agent; Z88.8 Allergy status to other drugs, medicaments and biological substances; Z79.82 Long term (current) use of aspirin; Z79.899 Other long term (current) drug therapy; Z86.711 Personal history of pulmonary embolism; Z87.01 Personal history of pneumonia (recurrent); Z99.3 Dependence on wheelchair
CPT/HCPCS: 36415; 36600; 71045; 80048; 80053; 80178; 81001; 82607; 82803; 83540; 83550; 83605; 83735; 83880; 84100; 84439; 84443; 84484; 85018; 85025; 85379; 85610; 87040; 87081; 92508; 92616; 93005; 93970; 94640; 94660; 94760; 96361; 96374; 96375; 96376; 97161; 97530; 99285; G0378; J0692; J1630; J1644; J2060; J2405; J2597; J3480; J3490; J7030; J7512; J7611; J7626